=== PATIENT | female | born 1950 | race Caucasian/White ===

== ENCOUNTER → 2017-08-27 | Outpatient (CLI) | payer OTHER, MEDICARE | LOC: FIMAGING 11:03 → EDSTATUS 11:06 | PROVIDERS: ATTEND Internal Medicine Pulmonary Disease | DX: R06.00 Dyspnea, unspecified (principal) ==

== ENCOUNTER 2017-11-08 17:48 | Inpatient (IN) | payer OTHER, MEDICARE ==
--- NOTE | 2017-11-08 18:22 | EDPHY ---
H & P Time Seen by Provider: 11/08/17 18:11 HPI/ROS: Chief complaint. Headache HPI. Patient is a 67-year-old female presents emergency department with results of an abnormal MRI done today. The patient has had about 3 months of intermittent headaches, off balance, visual changes that have been intermittent. She has had some falls from being off balance. She apparently had a TBI many years ago and has frequently had problems with being off balance but this has been progressively much worse. She had an outpatient MRI today at [facility] which shows a large cerebellar mass predominantly cystic. There is significant effect upon the 4th ventricle but no hydrocephalus. Significant edema within the cerebellum. She has no chest pain, shortness of breath, abdominal pain, no fever. ROS Constitutional. no fever/chills, no weakness Eyes. Intermittent problems with vision ENT. no sore throat, no nasal drainage Cardiovascular. no chest pain Respiratory. no shortness of breath, no cough Abdominal. no abdominal pain, no nausea/vomiting, no diarrhea . no problems urinating MS. no calf pain/swelling, no neck/back pain, no joint pain Skin. no rash Lymph. no swollen glands Neuro. Headache and off balance with difficulty walking and falls Past Medical/Surgical History: TBI, RA Social History: , nonsmoker, no alcohol Smoking Status: Never smoked Physical Exam: General Appearance: Alert pleasant well-developed female mild distress vital signs significant for initial blood pressure 167/144 Eyes: Appears to have papilledema. No restriction of gaze ENT, Mouth: Mucous membranes are moist. Respiratory: There are no retractions, lungs are clear to auscultation. Cardiovascular: Regular rate and rhythm. Gastrointestinal: Abdomen is soft and nontender, no masses, bowel sounds normal. Neurological: Awake and alert, sensory exams grossly normal. Speech is normal. Cranial nerves are intact. There is pronator drift with the right hand. She has abnormal bwdise-pl-[id number] with both index fingers and appears right is somewhat worse than left. She also has abnormal popl-py-[id number] exam with again right maybe being somewhat worse than left Skin: Warm and dry, no rashes. Musculoskeletal: Neck is supple nontender. Extremities symmetrical, full range of motion. Psychiatric: Patient is oriented X 3, there is no agitation. Constitutional: Initial Vital Signs Temperature (C) 37 C 11/08/17 17:56 Heart Rate 90 11/08/17 17:56 Respiratory Rate 18 11/08/17 17:56 Blood Pressure 167/144 H 11/08/17 17:56 O2 Sat (%) 96 11/08/17 17:56 O2 Delivery Mode Room Air Allergies/Adverse Reactions: Sulfa (Sulfonamide Antibiotics) Allergy (Unknown, Verified 11/08/17 18:02) Home Medications: Medication Instructions Recorded Breo Ellipta 100-25 Mcg INH 11/08/17 Estradiol [Vivelle-Dot 0.025MG (*)] 0.025 mg TD MoTh@0800 11/08/17 Phospserin/Willis-3/Dha/Epa 1 each PO DAILY 11/08/17 [Vayarin Capsule] Medical Decision Making - Diagnostics EKG Interpretation: EKG IN INTERPRETED BY ME SHOWS NORMAL SINUS RHYTHM NORMAL INTERVAL. THERE IS LEFT AXIS DEVIATION. QRS IS OTHERWISE NORMAL. THERE IS NO SIGNIFICANT ST ELEVATION OR DEPRESSION. NO ARRHYTHMIA. THE RATE IS 79 Imaging Results: Imaging Impressions Chest X-Ray 11/08/17 18:23 Impression: Clear lungs. Negative portable chest. Chest x-ray interpreted by me is normal MRI from health images reviewed by me showing large cerebellar mass, predominantly cystic, but containing thick irregular rhythm like enhancement. This is likely metastatic lesion, but differential considerations would include primary neoplasm including astrocytoma. The mass effect causes significant effect upon the 4th ventricle but there is no hydrocephalus yet. Abundant edema within the cerebellum is noted. Procedures: IV normal saline. Decadron IV. ED Course/Re-evaluation: The patient family and I reviewed the MRI results. We talked about mass in the cerebellar area. We discussed treatment plan including recommendation for admission and evaluation by Neurosurgery. They expressed understanding and agreement I consulted and discussed the case with Dr. Livingston for Neurosurgery who agrees with Decadron IV. He agrees with admission and metastatic workup. He will see the patient in the hospital tonight. He recommends step-down unit. I consulted discussed the case with Dr. Jose, hospitalist, who agrees to the admission We will recheck the patient's blood pressure and treated if it continues to be elevated Recheck in its 179/130. Patient will be treated with IV labetalol 9:00 p.m. blood pressure is 142/90 Differential Diagnosis: Large cerebellar mass that would explain patient's symptoms over the past 3 months. Unknown whether this is a primary or metastatic lesion Critical Care Time: Critical care time exclusive procedures 40 min - Data Points Laboratory Results: Laboratory Results 11/08/17 18:55 11/08/17 18:55 11/08/17 11/08/17 11/08/17 18:55 18:55 18:55 WBC 6.26 10^3/uL 10^3/uL (3.80-9.50) RBC 5.46 10^6/uL H 10^6/uL (4.18-5.33) Hgb 17.5 g/dL H g/dL (12.6-16.3) Hct 49.7 % H % (38.0-47.0) MCV 91.0 fL fL (81.5-99.8) MCH 32.1 pg pg (27.9-34.1) MCHC 35.2 g/dL g/dL (32.4-36.7) RDW 12.7 % % (11.5-15.2) Plt Count 240 10^3/uL 10^3/uL (150-400) MPV 9.7 fL fL (8.7-11.7) Neut % (Auto) 61.1 % % (39.3-74.2) Lymph % (Auto) 28.3 % % (15.0-45.0) [place] % (Auto) 8.8 % % (4.5-13.0) Eos % (Auto) 1.0 % % (0.6-7.6) Baso % (Auto) 0.6 % % (0.3-1.7) Nucleat RBC Rel Count 0.0 % % (0.0-0.2) Absolute Neuts (auto) 3.83 10^3/uL 10^3/uL (1.70-6.50) Absolute Lymphs (auto) 1.77 10^3/uL 10^3/uL (1.00-3.00) Absolute Monos (auto) 0.55 10^3/uL 10^3/uL (0.30-0.80) Absolute Eos (auto) 0.06 10^3/uL 10^3/uL (0.03-0.40) Absolute Basos (auto) 0.04 10^3/uL 10^3/uL (0.02-0.10) Absolute Nucleated RBC 0.00 10^3/uL 10^3/uL (0-0.01) Immature Gran % 0.2 % % (0.0-1.1) Immature Gran # 0.01 10^3/uL 10^3/uL (0.00-0.10) PT 12.8 SEC SEC (12.0-15.0) INR 0.94 (0.83-1.16) APTT 25.7 SEC SEC (23.0-38.0) Sodium 138 mEq/L mEq/L (135-145) Potassium 4.0 mEq/L mEq/L (3.3-5.0) Chloride 102 mEq/L mEq/L (97-110) Carbon Dioxide 23 mEq/l mEq/l (22-31) Anion Gap 13 mEq/L mEq/L (8-16) BUN 22 mg/dL mg/dL (7-23) Creatinine 1.0 mg/dL mg/dL (0.6-1.0) Estimated GFR 56 Glucose 84 mg/dL mg/dL (70-100) Calcium 10.3 mg/dL mg/dL (8.5-10.4) Total Bilirubin 0.6 mg/dL mg/dL (0.1-1.4) Conjugated Bilirubin 0.2 mg/dL mg/dL (0.0-0.5) Unconjugated Bilirubin 0.4 mg/dL mg/dL (0.0-1.1) AST 21 IU/L IU/L (14-46) ALT 25 IU/L IU/L (9-52) Alkaline Phosphatase 39 IU/L IU/L (38-126) Total Protein 7.3 g/dL g/dL (6.3-8.2) Albumin 4.7 g/dL g/dL (3.5-5.0) Lipase 46 IU/L IU/L (23-300) Medications Given: Discontinued Medications Dexamethasone (Decadron Injection) 10 mg IVP EDNOW ONE Stop: 11/08/17 18:25 Last Admin: 11/08/17 18:51 Dose: 10 mg Labetalol HCl (Trandate Injection) 20 mg IVP EDNOW ONE Stop: 11/08/17 19:33 Last Admin: 11/08/17 19:49 Dose: 20 mg Departure - Departure Disposition: [facility] Acute Clinical Impression: Brain tumor Condition: Fair
[2017-11-08] MEDS ORDERED: DEXAMETHASONE 10 MG/ML VIAL IVP ONE (18:24)
[2017-11-08 19:12] LABS: PLATELET COUNT 240 10^3/uL (150-400)
[2017-11-08 19:19] LABS: INR 0.94 (0.83-1.16); PROTIME(PATIENT) 12.8 SEC (12.0-15.0)
[2017-11-08] MEDS ORDERED: LABETALOL HCL 5 MG/ML 20 ML MDV IVP ONE (19:32)
[2017-11-08] MEDS ORDERED: ZOLPIDEM TARTRATE 5 MG TAB PO PRN (19:54)
--- NOTE | 2017-11-08 20:57 | CPEKG ---
Test Reason : OPEN Blood Pressure : / mmHG Vent. Rate : 079 BPM Atrial Rate : 079 BPM P-R Int : 154 ms QRS Dur : 079 ms QT Int : 385 ms P-R-T Axes : 049 -26 031 degrees QTc Int : 442 ms Sinus rhythm Probable left atrial enlargement Borderline left axis deviation Confirmed by Basil Ash ([id number]) on 11/08/2017 8:57:15 PM Referred By: Confirmed By:Basil Ash
--- NOTE | 2017-11-08 21:06 | PDGENHP ---
History and Physical History and Physical: CC: Headaches and imbalance HISTORY: This patient who is generally healthy recently started getting headaches, difficulty with balance, and intermittently some difficulty with vision in her left eye. She went to see a primary care doctor today who ordered an MR I. That showed a brain mass and she is sent to the ER for further assessment and care. Upon arrival here she is having some degree of headache but otherwise feels well. She has had a couple of falls due to her balance issues and has trouble getting up and down stairs. The MRI shows a cystic mass in the cerebellum suggestive of malignancy unclear if this is primary or metastatic disease. There is some edema within the cerebellum. 4th ventricles open. She has no prior history of cancer. She has not had any weight loss in fact has gained a bit of weight. She is not a smoker. She has not had breast exam pelvic exams Pap smear or mammogram for 12 years. She did have a colonoscopy a few years ago that was unrevealing. She has no cough. She was recently diagnosed with asthma and her recent onset of shortness of breath with exertion has resolved with treatment of that including inhalers. She has been doing self breast exams with no noticed lump. No vaginal bleeding. No chest pain abdominal pain skeletal pain skin lesions. No family history of malignancy that she is aware of ROS: A comprehensive 10 system review revealed no other significant findings PREOP RISK ASSESSMENT: No history of heart disease, and no recent symptoms to suggest heart disease Recent onset of asthma has been diagnosed has met by Dr. Fowler of pulmonology, and her symptoms are resolved with albuterol and Breo use, before onset of her imbalance problems from her mass she was [place] difficulty No history of renal or liver disease and no symptoms to suggest either of those No history of bleeding disorder or thromboembolic disorder no family history of same No history of anesthesia complications (general anesthesia for a shoulder surgery) and no family history of same No recent fevers No recent stroke-like symptoms PAST MEDICAL HISTORY: Traumatic brain injury FAMILY MEDICAL HISTORY: No cancers SOCIAL HISTORY: 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 I have reviewed the list and ordered appropriate medicines. PHYSICAL EXAMINATION: Vital Signs: Some hypertension here in the ER which is improving spontaneously , otherwise stable without fever Ux Developer: Sinus Examination: General: alert, oriented, good mentation, relaxed Skin: warm, dry, good color, no rash; no malignancies identified, I did not examine her scalp completely HEENT: normal Neck: no mass or jvd Resps: relaxed Bilateral bimanual breast exams with complete standard breast exam technique including exam for adenopathy in the breast drainage areas is negative Lungs: clear breath sounds Heart: regular, no murmur Abdomen: soft, nondistended, nontender, +BS, no mass Upper Extremities: normal Lower Extremities: no edema, warm No Bleeding or bruising Neurologic: normal speech/language, 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 Ge Acevedo, she has a large cystic mass with enhancing rim features in the anterior cerebellum centrally located and some edema 12 LEAD EKG: ASSESSMENT: * SYMPTOMATIC CEREBELLAR MASS WITH IMBALANCE AND INCOORDINATION, HEADACHES, OCCASIONAL VISUAL SYMPTOMS * NO CURRENT EVIDENCE OF PRIMARY DISEASE IN OTHER PARTS OF THE BODY * CTS OF CHEST ABDOMEN PELVIS PENDING FOR FURTHER EVALUATION * RECENT ONSET OF MILD ASTHMA CURRENTLY EASILY TREATED WITH ALBUTEROL AND BREO, CURRENTLY ASYMPTOMATIC * NO OTHER MEDICAL ISSUES TO PRECLUDE PROCEEDING WITH ANESTHESIA AND SURGERY FOR HER MASS I reviewed the case in detail with Dr. Livingston who plans to do surgery on Saturday. We discussed use of dexamethasone to reduce edema and monitoring with neurologic checks in the ICU. PLANS: * Inpatient admission ICU * Continue her usual inhalers * Dexamethasone 4 mg 4 times daily * Will use Pepcid along with that * Fall risk precautions, PT and OT * Recommend proceeding with surgery per Dr. Livingston's plans
[2017-11-08] MEDS ORDERED: ALBUTEROL 60 PUFFS/8 GM MDI IH PRN (21:10)
[2017-11-08] MEDS ORDERED: IOPAMIDOL (ISOVUE-300) 100 ML BTL ONE (21:41)
--- NOTE | 2017-11-08 21:53 | GCON ---
ER CONSULTATION. DATE OF CONSULTATION: 11/08/2017 REASON FOR CONSULTATION: New right-sided cerebellar tumor with progressive neurological deficits. 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 She states that for the last several months she has been having more and more issues with progressive headaches which were initially intermittent and now have been more constant in nature. She also has issues with waking up in the morning with temporary blindness which resolves over time. She has been noticing more difficulty with her balance including gait disturbance and difficulty with utilization of her right greater than left upper extremity in terms of balance. She underwent an MRI scan as an outpatient and was noted to have a large cerebellar mass for which [facility]. Neurosurgery was consulted. At this point, the patient states that she is feeling slightly better after having received some Decadron. She does have ongoing headaches which radiate from the occiput up and around her cranium. She continues to have issues with gait ataxia and balance issues with again the right greater than left upper extremity. She is dropping objects secondary to inability to hold them properly with the right upper extremity. No history of any carcinomas. No other neurological deficits such as swallowing issues, speech issues, and not choking on food. REVIEW OF SYSTEMS: Complete 10-point review of systems from the intake form are reviewed by myself, significant only for those noted above in the HPI. SOCIAL HISTORY: She is and a nonsmoker. Denies any alcohol use. No other illicit drug use. She has 2 sisters. FAMILY HISTORY: Significant for carcinoma in her mother, but no history of primary brain cancers. ALLERGIES: Sulfa. HOME MEDICATIONS: 1. Albuterol. 2. Breo Ellipta. 3. Estradiol. 4. Progesterone. 5. Testosterone. PAST MEDICAL HISTORY: 1. Traumatic brain injury. 2. Rheumatoid arthritis. 3. Asthma. MEDICAL DECISION MAKING: Patient underwent an MRI of the brain at an outside facility which was reviewed by myself, [facility] was [facility]. There is evidence of a 3.7 x 3.3 mass located eccentric to the right side of the cerebellar hemisphere, possibly arising from the vermis. There is evidence of midline shift and mass effect. There is effacement of the fourth ventricle. Minimal enlargement of the cerebral ventricles with no transependymal flow. The lesion has a well enhanced margin with a cystic component. LABS: White count 6.26, platelets 240, INR is 0.94, PTT 25.7. Sodium 138, potassium 4.0, BUN of 22, creatinine 1.0. PHYSICAL EXAMINATION: Blood pressure is 136/95, respiratory rate 18, saturating 95% on room air. Temperature is 37 degrees Celsius. Heart rate 75. GENERAL APPEARANCE: She is awake, alert, oriented, and quite pleasant with the examination. The patient's , sister, the best friend and niece are at the bedside. She is quite pleasant and cooperative with examination. EYES: Pupils are equal, round, and reactive to light bilaterally. MOTOR: She has 5 out of 5 strength with bilateral safety deposit clerk strength, biceps, triceps, deltoid, hip flexion, knee flexion and extension, plantar and dorsiflexion, and extensor hallucis longus bilaterally. SENSORY: She has intact sensation to light touch throughout all major dermatomes of bilateral upper and lower extremities throughout. REFLEXES: Are 2 plus at the bilateral brachioradialis and patellae. Negative العراقي's. No Babinski. NEUROLOGIC: Cranial nerves 2 through 12 appear to be intact. Pupils are equal, round, and reactive to light bilaterally. Extraocular movements intact. Tongue protrudes midline. Uvula and palate elevate symmetrically. She has symmetric face with intact sensation to light touch on her face bilaterally. Hearing is slightly diminished on the right side to light finger scratching. Her shoulder shrug is symmetric. OTHER : There is no pronator drift. She has difficulty with smlzko-ldty-uujvdh testing bilaterally, worse on the right compared to the left. She is very ataxic with gait which I did not test, but was tested by the ER physician prior to my arrival. She has abnormal delf-ae-glsk examination on the right greater the left. 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 She has evidence of approximately 3.7 x 3.3 cm lesion within the possibly cerebellar vermis versus hemisphere with some effacement of the fourth ventricle. At this point, we are going to admit her to the intensive care unit and complete a metastatic workup with CT of the chest , abdomen, and pelvis. She will likely require surgical intervention for this and I have discussed with her the extent of the risks and benefits of a suboccipital craniectomy with open tumor biopsy and resection. She is willing to proceed. We will admit her to the Hospitalist Service. Give her a 10 mg dose of Decadron, 4 mg q.6 hours for stabilization. We will get Physical Therapy and Occupational Therapy to see the patient as well. All the questions were answered to their satisfaction. Thank you for this consultation. /[id number]/MODL MTDD
[2017-11-08] MEDS: DEXAMETHASONE 4 MG TAB PO SCH (23:56)
[2017-11-09] MEDS: DEXAMETHASONE 4 MG TAB PO SCH ×4 (05:43→23:53)
--- NOTE | 2017-11-09 06:19 | PDMN ---
Medical Necessity Medical necessity: Pt meets IP criteria per MD; est los >2 mn for eval/tx of symptomatic cerebellar mass w/cerebellum edema, headaches, visual changes, imbalance & recent falls; admit to ICU for further workup/monitoring, Neurosurgery consult w/surgical intervention & therapies; hx TBI, recent onset of asthma; per H&P & order 11/08/17
--- NOTE | 2017-11-09 07:27 | SOAPPROG ---
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 tumor improved this morning on steroids Plan: - will obtain Ct C/A/P as part of her metastatic work-up (no history of cancer) - continue with therapies (PT/OT) - continue with steroids Dex 4q6 - scheduled for surgery on Saturday at 1 pm - continue with q1 ICU today as she feels some increased pressure/headaches this morning - all questions answered - appreciate medicine management of her issues 11/09/17 07:24 Subjective: feeling better this morning; anxious for surgery; new pressure on the back of her head Objective: Vital Signs Temp Pulse Resp BP Pulse Ox 36.7 C 61 16 108/77 94 11/08/17 20:45 11/09/17 06:00 11/09/17 06:00 11/09/17 06:00 11/09/17 06:00 11/08/17 11/09/17 11/10/17 05:59 05:59 05:59 Intake Total 1300 Balance 1300 PT 12.8 SEC (12.0-15.0) 11/08/17 18:55 INR 0.94 (0.83-1.16) 11/08/17 18:55 Awake and alert, oriented X 4 Face symmetric No pronator drift Dysmetria right > left - improved Good strength throughout B UE/LE ICD10 Worksheet Patient Problems: Problems Problem Status Onset Brain tumor Acute
[2017-11-09] MEDS: FAMOTIDINE 20 MG TAB PO SCH ×2 (08:43→20:38)
[2017-11-09] MEDS: DHA PO SCH (08:53)
[2017-11-09] MEDS: EPA PO SCH (08:53)
[2017-11-09] MEDS: OMEGA PO SCH (08:53)
[2017-11-09] MEDS: PHOSPSERIN PO SCH (08:53)
[2017-11-09] MEDS: POLYETHYLENE GLYCOL 3350 17 GM PKT PO PRN (09:08)
--- NOTE | 2017-11-09 09:59 | ASMTCASEMG ---
Living Arrangements What is your living Answers: With Partner arrangement? Who do you live with? Type Of Residence What kind of residence do Answers: House you live in? Discharge Plan Comments Coordination Status Comments Notes: Patient is a 67yo female who has been generally healthy but recently developed headaches, balance difficulties, and intermittant vision impairment in her left eye. Patient had an MRI done which showed a brain mass. Patient has been admitted for surgery. 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 D/C plan TBD. CM will follow. Date Signed: 11/09/2017 09:58 AM Electronically Signed By:Kaylah Nicole LCSW
--- NOTE | 2017-11-09 10:05 | GCON ---
REASON FOR ADMISSION: Ataxia, dizziness, asthma. Ms. Dalal is an extremely pleasant 67-year-old white female with a past medical history including asth ma and traumatic brain injury. She presented to the emergency room after an abnormal MRI was found. Over the last 3 months she has noticed increasing headaches. She was in [place] and began having fal ls as well as significant loss of balance and dizziness. She was admitted, placed into the intensive care unit, and placed on steroids. She feels markedly improved today. From an asthma standpoint, s he has remained stable. She is on Breo as an outpatient and doing well. She denies any cough or pro ductive sputum. There is no chest pain, pleuritic-type chest pain, or angina equivalent. There is n o fever or night sweats. REVIEW OF SYSTEMS: 10-point review of systems was performed and is negative with the exception as li sted in HPI. PAST MEDICAL HISTORY: Again, significant for traumatic brain injury, possible rheumatoid arthritis, and asthma. SOCIAL HISTORY: Lifelong never smoker. No significant alcohol use. She is , has excellent [employer] support. FAMILY HISTORY: Noncontributory. PHYSICAL EXAM: VITAL SIGNS: Blood pressure 108/77, pulse is 61, respirations 16. She is afebrile. Oxygen saturation 94% on room air. GENERAL: She is a well-developed, well-nourished 67-year-old ite female who is resting comfortably, in no acute distress. HEENT: Eyes are DOMINIC, EOMI. Throat sh ows no erythema or tonsillar hypertrophy. NECK: Supple. No cervical adenopathy. HEART: Regular r ate and rhythm without murmurs, rubs, gallops. LUNGS: Show mild prolongation expiratory phase, but there is no wheeze. ABDOMEN: Soft, nontender. Bowel sounds are present in all 4 quadrants. EXTREM ITIES: No clubbing, cyanosis, or edema. LABORATORIES: White count 6.2, hemoglobin 17, hematocrit 49, platelet count is 240. Sodium 138, pot assium 4.0, chloride 102, CO2 23, BUN 22, creatinine 1, glucose is 84. MRI revealed a large right me kaitlynn paramedial cerebellar mass. IMPRESSION: 1. Large cerebellar mass. 2. Ataxia secondary to above. 3. Asthma, currently controlled. 4. History of traumatic brain injury. RECOMMENDATIONS: 1. Agree with steroids consisting of dexamethasone. 2. Frequent nebulizers using both albuterol and Atrovent. 3. We will start patient on Advair. 4. DVT and PE prophylaxis. 5. Stress ulcer prophylaxis. 6. Close neurologic monitoring. /[id number]/MODL
--- NOTE | 2017-11-09 10:12 | HOSPPROG ---
Hospitalist Progress Note Assessment/Plan: # cerebellar mass - plan surgical resection Saturday at 1p by Dr Livingston - cont decadron 4mg po q6 - check CT C/A/P to look for a primary - Dr Montejo to consult today - cont ICU care today Subjective: feels better after getting decadron Objective: Vital Signs Temp Pulse Resp BP Pulse Ox 37.0 C 75 16 161/96 H 94 11/09/17 08:00 11/09/17 09:00 11/09/17 09:00 11/09/17 09:00 11/09/17 09:00 11/08/17 11/09/17 11/10/17 05:59 05:59 05:59 Intake Total 1300 Balance 1300 PT 12.8 SEC (12.0-15.0) 11/08/17 18:55 INR 0.94 (0.83-1.16) 11/08/17 18:55 chart reviewed discussed with Dr Montejo and Miki MRI personally reviewed - Physical Exam Constitutional: no apparent distress, appears nourished Cardiovascular: regular rate and rhythym, no murmur, rub, or gallop Respiratory: no respiratory distress, no rales or rhonchi, clear to auscultation Gastrointestinal: soft, non-tender abdomen, no palpable masses, No guarding, No rebound ICD10 Worksheet Patient Problems: Problems Problem Status Onset Brain tumor Acute
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
[2017-11-09] MEDS: FLUTICASONE/SALMETER 250/50MCG DISKUS IH SCH (22:13)
[2017-11-10] MEDS: ACETAMINOPHEN 325 MG TAB PO PRN ×2 (05:39→13:54)
[2017-11-10] MEDS: DEXAMETHASONE 4 MG TAB PO SCH ×4 (05:39→23:59)
--- NOTE | 2017-11-10 07:41 | SOAPPROG ---
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 - continue with therapies (PT/OT) as she continues to have issues with her balance and coordination - continue with steroids Dex 4q6 - scheduled for surgery on Saturday at 1 pm - continue with q2 hour Neuro checks and transfer (order placed) to SDU today as she feels stable TBI headache this morning only - all questions answered - appreciate medicine management of her issues and Oncology input 11/10/17 07:38 11/10/17 07:40 Subjective: stable TBI headaches; no new complaints; spent time with family yesterday Objective: Vital Signs Temp Pulse Resp BP Pulse Ox 36.9 C 57 L 16 109/70 98 11/10/17 04:00 11/10/17 05:56 11/10/17 05:56 11/10/17 05:56 11/10/17 05:56 11/09/17 11/10/17 11/11/17 05:59 05:59 05:59 Intake Total 1300 1200 Balance 1300 1200 PT 12.8 SEC (12.0-15.0) 11/08/17 18:55 INR 0.94 (0.83-1.16) 11/08/17 18:55 Awake and alert, oriented X 4 Face symmetric No pronator drift Dysmetria right > left - improved from admission Good strength throughout B UE/LE ICD10 Worksheet Patient Problems: Problems Problem Status Onset Brain tumor Acute
[2017-11-10] MEDS: FLUTICASONE/SALMETER 250/50MCG DISKUS IH SCH ×2 (08:58→21:16)
[2017-11-10] MEDS: BREO ELLIPTA IH SCH (08:59)
--- NOTE | 2017-11-10 09:22 | PDINTPN ---
Wine Sales Representative Progress Note Assessment/Plan: Assessment/plan: * Cerebellar mass-to OR for resection on Saturday * Ataxia * Asthma-well controlled -continue Advair * Very subtle ground-glass opacification on CT scan-query significance -follow with chest x-ray tomorrow * History of TBI * PT/OT * VT prophylaxis * Stress ulcer prophylaxis Subjective: Sitting up in chair. Resting comfortably. Breathing easily. Denies any headache. Objective: Vital Signs Temp Pulse Resp BP Pulse Ox 36.9 C 57 L 16 109/70 98 11/10/17 04:00 11/10/17 05:56 11/10/17 05:56 11/10/17 05:56 11/10/17 05:56 11/09/17 11/10/17 11/11/17 05:59 05:59 05:59 Intake Total 1300 1200 Balance 1300 1200 PT 12.8 SEC (12.0-15.0) 11/08/17 18:55 INR 0.94 (0.83-1.16) 11/08/17 18:55 - Time Spent With Patient Time Spent With Patient: 35 min of time spent with patient, over 1/2 involved with coordination of care or counseling. Physical Exam - Physical Exam General Appearance: alert, no apparent distress EENT: PERRL/EOMI Neck: non-tender, full range of motion, supple, normal inspection Respiratory: chest non-tender, lungs clear, normal breath sounds, prolonged expiration (Mild) Cardiac/Chest: normal peripheral pulses, regular rate, rhythm Peripheral Pulses: 2+: carotid (R), carotid (L), femoral (R), femoral (L), dorsalis-pedis (R), dorsalis-pedis (L) Abdomen: normal bowel sounds, non-tender, soft Pelvic Exam: deferred Rectal: deferred Skin: normal color, warm/dry Extremities: normal range of motion, non-tender, normal inspection, normal capillary refill Neuro/Psych: no motor/sensory deficits, alert, normal mood/affect, oriented x 3 ICD10 Worksheet Patient Problems: Problems Problem Status Onset Brain tumor Acute
[2017-11-10] MEDS: FAMOTIDINE 20 MG TAB PO SCH ×2 (09:24→21:16)
[2017-11-10] MEDS: POLYETHYLENE GLYCOL 3350 17 GM PKT PO PRN (09:24)
[2017-11-10] MEDS: DHA PO SCH (09:25)
[2017-11-10] MEDS: OMEGA PO SCH (09:25)
[2017-11-10] MEDS: PHOSPSERIN PO SCH (09:25)
[2017-11-10] MEDS: EPA PO SCH (09:25)
--- NOTE | 2017-11-10 14:13 | SOAPPROG ---
SOAP Progress Note Assessment/Plan: E&M for brain mass * Cerebellar mass: The CT scan does not show any obvious evidence of a primary. She has a right renal cyst that looks benign and some uterine fibroids. Also reviewed the MRI with radiology and it is not classic presentation for a GBM. The next step is to biopsy or remove the mass and see what we are dealing with. Subjective: Headache today but slept well. No acute complaints. Objective: Vital Signs Temp Pulse Resp BP Pulse Ox 36.8 C 64 18 102/84 H 94 11/10/17 07:00 11/10/17 09:00 11/10/17 09:00 11/10/17 09:00 11/10/17 09:00 11/09/17 11/10/17 11/11/17 05:59 05:59 05:59 Intake Total 1300 1200 Balance 1300 1200 PT 12.8 SEC (12.0-15.0) 11/08/17 18:55 INR 0.94 (0.83-1.16) 11/08/17 18:55 CT Chest With IV Contrast Impression: Subtle groundglass opacity posteriorly in the right upper lobe, which could represent a subtle pneumonitis. Degenerative change thoracic spine. Dictated By: Ramirez Tyler MD CT Scan of the Abdomen and Pelvis (With Contrast) Pelvis: Multiple myometrial masses are seen, exophytic off the uterus. No significant free fluid in the pelvis. No evidence for bladder calculus. No significant pelvic or inguinal lymphadenopathy. Degenerative change is seen in both hips. There appears to be a degenerative cyst in the anterior right acetabulum. Degenerative disk and degenerative joint disease is seen in the lumbar spine. Impression: 1. 4-cm mildly exophytic cyst superior pole of the right kidney. 2. Constipation. 3. Degenerative change in both hips and degenerative change lumbar spine. Dictated By: Ramirez Tyler MD Physical Exam - Physical Exam General Appearance: alert, no apparent distress ICD10 Worksheet Patient Problems: Problems Problem Status Onset Brain tumor Acute
--- NOTE | 2017-11-10 14:22 | HOSPPROG ---
Hospitalist Progress Note Assessment/Plan: # cerebellar mass - likely primary; renal mass appears benign - plan surgical resection Saturday at 1p by Dr Livingston - cont decadron 4mg po q6 - cont ICU care today # GARCIA - will treat with apap preferentially and low dose tramadol today Subjective: has severe GARCIA; ataxia unchanged Objective: Vital Signs Temp Pulse Resp BP Pulse Ox 36.8 C 64 18 102/84 H 94 11/10/17 07:00 11/10/17 09:00 11/10/17 09:00 11/10/17 09:00 11/10/17 09:00 11/09/17 11/10/17 11/11/17 05:59 05:59 05:59 Intake Total 1300 1200 Balance 1300 1200 PT 12.8 SEC (12.0-15.0) 11/08/17 18:55 INR 0.94 (0.83-1.16) 11/08/17 18:[address] personally reviewed - Physical Exam Constitutional: no apparent distress, appears nourished Cardiovascular: regular rate and rhythym, no murmur, rub, or gallop Respiratory: no respiratory distress, no rales or rhonchi, clear to auscultation Gastrointestinal: soft, non-tender abdomen, no palpable masses, No guarding, No rebound, No distension ICD10 Worksheet Patient Problems: Problems Problem Status Onset Brain tumor Acute
[2017-11-10] MEDS: traMADol 50 MG TAB PO PRN (15:28)
[2017-11-11] MEDS: DEXAMETHASONE 4 MG TAB PO SCH ×3 (05:03→17:54)
[2017-11-11 05:12] LABS: PLATELET COUNT 230 10^3/uL (150-400)
--- NOTE | 2017-11-11 08:32 | PDINTPN ---
Product Safety Administrator Progress Note Assessment/Plan: Assessment/plan: * Cerebellar mass-to OR for resection tomorrow * Ataxia * Asthma-well controlled -continue Advair * Very subtle ground-glass opacification on CT scan-query significance -chest x-ray clear * History of TBI * PT/OT * VT prophylaxis * Stress ulcer prophylaxis Subjective: Resting comfortably. Only complaint is a headache. No neurologic changes. Breathing easily. Objective: Vital Signs Temp Pulse Resp BP Pulse Ox 36.9 C 50 L 17 97/63 L 95 11/10/17 20:00 11/11/17 04:00 11/11/17 04:00 11/11/17 04:00 11/11/17 04:00 Laboratory Results 11/11/17 04:55 11/11/17 04:55 11/10/17 11/11/17 11/12/17 05:59 05:59 05:59 Intake Total 1200 700 Balance 1200 700 PT 12.8 SEC (12.0-15.0) 11/08/17 18:55 INR 0.94 (0.83-1.16) 11/08/17 18:55 Chest [id number] by myself. Clear - Time Spent With Patient Time Spent With Patient: 35 min of time spent with patient, over 1/2 involved coordination of care or counseling. Case discussed with Neurosurgery and nursing Physical Exam - Physical Exam General Appearance: WD/WN, alert, no apparent distress EENT: PERRL/EOMI, normal ENT inspection, pharynx normal, TMs normal Neck: non-tender, full range of motion, supple, normal inspection Respiratory: chest non-tender, lungs clear, normal breath sounds Cardiac/Chest: normal peripheral pulses, regular rate, rhythm Peripheral Pulses: 2+: carotid (R), carotid (L), femoral (R), femoral (L), dorsalis-pedis (R), dorsalis-pedis (L) Abdomen: normal bowel sounds, non-tender, soft Pelvic Exam: deferred Rectal: deferred Skin: normal color, warm/dry Extremities: normal range of motion, non-tender, normal inspection, normal capillary refill Neuro/Psych: no motor/sensory deficits, alert, normal mood/affect, oriented x 3 ICD10 Worksheet Patient Problems: Problems Problem Status Onset Brain tumor Acute
[2017-11-11] MEDS: FAMOTIDINE 20 MG TAB PO SCH ×2 (08:46→22:02)
[2017-11-11] MEDS: POLYETHYLENE GLYCOL 3350 17 GM PKT PO PRN (08:46)
[2017-11-11] MEDS: OMEGA PO SCH (08:47)
[2017-11-11] MEDS: EPA PO SCH (08:47)
[2017-11-11] MEDS: DHA PO SCH (08:47)
[2017-11-11] MEDS: PHOSPSERIN PO SCH (08:47)
--- NOTE | 2017-11-11 09:01 | SOAPPROG ---
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 [facility] MRI brain ordered. - continue with q2 hour Neuro checks - all questions answered - appreciate medicine management of her issues and Oncology input - NPO after midnight; T&S, Ryan GAXIOLA, [facility] MRI brain ordered. 11/11/17 08:59 Subjective: no complaints this morning; anxious to get to surgery tomorrow Objective: Vital Signs Temp Pulse Resp BP Pulse Ox 36.9 C 50 L 17 97/63 L 95 11/10/17 20:00 11/11/17 04:00 11/11/17 04:00 11/11/17 04:00 11/11/17 04:00 Laboratory Results 11/11/17 04:55 11/11/17 04:55 11/10/17 11/11/17 11/12/17 05:59 05:59 05:59 Intake Total 1200 700 Balance 1200 700 PT 12.8 SEC (12.0-15.0) 11/08/17 18:55 INR 0.94 (0.83-1.16) 11/08/17 18:55 Awake and alert, oriented X 4 Face symmetric No pronator drift Dysmetria right > left - improved from admission Good strength throughout B UE/LE ICD10 Worksheet Patient Problems: Problems Problem Status Onset Brain tumor Acute
[2017-11-11] MEDS: BREO ELLIPTA IH SCH (09:52)
[2017-11-11] MEDS: ESTRADIOL VIVELLE 0.025 MG PATCH TD SCH (13:33)
--- NOTE | 2017-11-11 14:22 | HOSPPROG ---
Hospitalist Progress Note Assessment/Plan: # cerebellar mass - likely primary; renal mass appears benign - plan surgical resection Saturday at 1p by Dr Livingston - cont decadron 4mg po q6 - cont ICU care today # GARCIA - much improved after one dose of tramadol - discussed with Dr Livingston - will sign off after surgery tomorrow and Dr Livingston will take over as primary post-op Subjective: atacia better; GARCIA better after tramadol Objective: Vital Signs Temp Pulse Resp BP Pulse Ox 36.9 C 62 21 H 97/63 L 97 11/10/17 20:00 11/11/17 09:57 11/11/17 09:57 11/11/17 04:00 11/11/17 09:57 Laboratory Results 11/11/17 04:55 11/11/17 04:55 11/10/17 11/11/17 11/12/17 05:59 05:59 05:59 Intake Total 1200 700 Balance 1200 700 PT 12.8 SEC (12.0-15.0) 11/08/17 18:55 INR 0.94 (0.83-1.16) 11/08/17 18:55 - Physical Exam Constitutional: no apparent distress, appears nourished Eyes: anicteric sclera Ears, Nose, Mouth, Throat: hearing normal Cardiovascular: No edema Respiratory: no respiratory distress Gastrointestinal: No distension Genitourinary: No thayer in urethra Skin: warm Neurologic: AAOx3 Psychiatric: not anxious ICD10 Worksheet Patient Problems: Problems Problem Status Onset Brain tumor Acute
[2017-11-11] MEDS ORDERED: MAGNESIUM HYDROXIDE 30 ML UDCUP PO PRN (15:57)
--- NOTE | 2017-11-11 16:22 | ASMTCMCOM ---
CM Note CM Note Notes: CM spoke to DENNIS Omer about this case. CM wrote an airline excuse letter and provided it to pt. Pt will have brain surgery tomorrow. Therapies are recommending inpatient rehab. WADE contacted Dr. Briggs and he will put in the rehab consult. CM to follow up after surgery. Plan: TBD Date Signed: 11/11/2017 04:21 PM Electronically Signed By:CHRIS Szymanski
[2017-11-11] MEDS: traMADol 50 MG TAB PO PRN (22:02)
[2017-11-12] MEDS: DEXAMETHASONE 4 MG/ML VIAL IVP SCH ×5 (00:54→23:22)
[2017-11-12 01:17] LABS: PLATELET COUNT 235 10^3/uL (150-400)
[2017-11-12] MEDS: DEXAMETHASONE 4 MG TAB PO SCH (03:04)
[2017-11-12] MEDS ORDERED: DIAZEPAM 5 MG/ML 1 ML SYR IVP ONE (06:00)
[2017-11-12] MEDS ORDERED: BUPIVACAINE 0.25% 30 ML SDV ONE (09:02)
[2017-11-12] MEDS ORDERED: BACITRACIN ZINC 14.2 GM OINTTUBE TP ONE (09:03)
[2017-11-12] MEDS ORDERED: BACITRACIN 50,000 UNITS/10 ML SYR IRR ONE (09:03)
[2017-11-12] MEDS ORDERED: THROMBIN (BOVINE) 5,000 UNIT VIAL TP ONE (09:04)
[2017-11-12] MEDS ORDERED: CHLORHEXIDINE GLUC HIBICLENS 118 ML BTL TP ONE (09:05)
[2017-11-12] MEDS ORDERED: MANNITOL 20% 100 GM/500 ML BAG IV ONE ×2 (09:06→14:14)
--- NOTE | 2017-11-12 09:06 | PDHPUP ---
History & Physical Update H&P update statement: This history and physical update is based on an assessment of the patient which was completed after admission or registration (within 24 hours), but prior to the surgery/procedure. H&P update: H&P reviewed & patient examined (site marked and consent on chart)
[2017-11-12] MEDS ORDERED: DIAZEPAM 5 MG/ML 1 ML SYR ONE (09:07)
[2017-11-12] MEDS: BREO ELLIPTA IH SCH (09:25)
[2017-11-12] MEDS ORDERED: GADOBUTROL 10 ML VIAL IVP ONE (09:42)
[2017-11-12] MEDS: FAMOTIDINE 20 MG TAB PO SCH (10:07)
[2017-11-12] MEDS: EPA PO SCH (10:07)
[2017-11-12] MEDS: OMEGA PO SCH (10:07)
[2017-11-12] MEDS: PHOSPSERIN PO SCH (10:07)
[2017-11-12] MEDS: DHA PO SCH (10:07)
[2017-11-12] MEDS ORDERED: ceFAZolin 2 GM/DEXTROSE 100 ML IV ONE (11:30)
[2017-11-12] MEDS ORDERED: LR 1,000 ML IV ONE (13:00)
[2017-11-12] MEDS ORDERED: THROMBIN (BOVINE) 20,000 UNIT VIAL TP ONE (13:03)
[2017-11-12] MEDS ORDERED: THROMBIN (BOVINE) 20,000 UNIT SPRAY TP ONE (13:03)
[2017-11-12] MEDS ORDERED: GENTAMICIN SULFATE 80 MG/2 ML VIAL ONE (13:08)
[2017-11-12] MEDS ORDERED: SURGIFLO MATRIX KIT WITH THROMBIN 8 ML TP ONE (13:08)
[2017-11-12] MEDS ORDERED: EPINEPHrine 1 MG/ML INJ ONE (13:11)
[2017-11-12] MEDS ORDERED: PROPOFOL/EMULSION 500 MG/50 ML BOTTLE IV ONE ×4 (13:26→18:50)
[2017-11-12] MEDS ORDERED: REMIFENTANIL HCL 1 MG VIAL ONE ×5 (13:28→19:22)
[2017-11-12] MEDS ORDERED: SUCCINYLCHOLINE CHLORIDE 200 MG/10 ML SYR IVP ONE (13:38)
[2017-11-12] MEDS ORDERED: ePHEDrine SULFATE 25 MG/5 ML SYR ONE ×3 (13:53→16:52)
[2017-11-12] MEDS ORDERED: DEXAMETHASONE 4 MG/ML VIAL IVP PRN (14:48)
[2017-11-12] MEDS ORDERED: ONDANSETRON 4 MG/2 ML VIAL IVP PRN (14:48)
[2017-11-12] MEDS ORDERED: ALBUTEROL 3 ML DEYVIAL IH PRN (14:48)
[2017-11-12] MEDS ORDERED: fentaNYL 100 MCG/2 ML INJ IVP PRN (14:48)
[2017-11-12] MEDS ORDERED: NALOXONE HCL 0.4 MG/ML INJ IVP PRN (14:48)
--- NOTE | 2017-11-12 14:51 | PDANEPAE ---
ANE History of Present Illness Posterior Fossa Craniotomy for Tumor Resection ANE Past Medical History - Cardiovascular History Hx Hypertension: Yes - Pulmonary History Hx Oxygen in Use at Home: No Hx Sleep Apnea: No Sleep Apnea Screening Result - Last Documented: Negative - Endocrine History Hx Diabetes: No ANE Review of Systems Review of Systems: - Exercise capacity Exercise capacity: >=4 METS ANE Patient History - Allergies Allergies/Adverse Reactions: Sulfa (Sulfonamide Antibiotics) Allergy (Unknown, Verified 11/08/17 18:02) - Home Medications Home Medications: Breo Ellipta 100-25 Mcg INH 1 puffs IH DAILY 11/08/17 [Last Taken Unknown] Estradiol [Vivelle-Dot 0.025MG (*)] 0.025 mg TD MoTh@0800 11/08/17 [Last Taken 11/07/17] Phospserin/[place]-3/Dha/Epa [Vayarin Capsule] 1 each PO DAILY 11/08/17 [Last Taken 11/07/17] Meloxicam 15 mg PO DAILY 11/10/17 [Last Taken Unknown] - NPO status NPO Since - Liquids (Date): 11/12/17 NPO Since - Liquids (Time): 00:00 NPO Since - Solids (Date): 11/12/17 NPO Since - Solids (Time): 00:00 - Smoking Hx Smoking Status: Never smoked ANE Labs/Vital Signs - Labs Result Diagrams: 11/12/17 01:05 11/12/17 01:05 - Vital Signs Blood Pressure: 115/77 Heart Rate: 55 Respiratory Rate: 12 O2 Sat (%): 92 Height: 157.48 cm Weight: 65 kg ANE Physical Exam - Airway Neck exam: FROM Mallampati Score: Class 2 - Pulmonary Pulmonary: clear to auscultation - Cardiovascular Cardiovascular: regular rate and rhythym - ASA Status ASA Status: II ANE Anesthesia Plan Anesthesia Plan: general endotracheal anesthesia Lines/Monitors: arterial line, additional IV Total IV Anesthesia: Yes
[2017-11-12] MEDS ORDERED: ceFAZolin 1 GM VIAL ONE ×2 (17:18→19:58)
[2017-11-12] MEDS ORDERED: LACTULOSE 20 GM/30 ML UDCUP PO PRN (17:43)
[2017-11-12] MEDS ORDERED: MAGNESIUM HYDROXIDE 30 ML UDCUP PO PRN (17:43)
[2017-11-12] MEDS ORDERED: ONDANSETRON DISINTEGRATING 4 MG TAB PO PRN (17:43)
[2017-11-12] MEDS ORDERED: DIAZEPAM 5 MG TAB PO PRN (17:43)
[2017-11-12] MEDS ORDERED: NS W/ 20 KCl/L 1,000 ML IV SCH (17:45)
[2017-11-12] MEDS ORDERED: DEXAMETHASONE 4 MG/ML VIAL ONE ×2 (19:53)
[2017-11-12] MEDS ORDERED: ONDANSETRON 4 MG/2 ML VIAL ONE (19:53)
--- NOTE | 2017-11-12 20:45 | GOP ---
DATE OF OPERATION: 11/12/2017 SURGEON: Marcin Quinones MD NEUROSURGEON: Marcin Quinones MD. POLITICAL ADVISOR: Load Out Person: Jonatan Livingston MD. Second Assist: MARCO Borrego. ANESTHESIA: General endotracheal. PREOPERATIVE DIAGNOSIS: Right vermian mass. POSTOPERATIVE DIAGNOSIS: Right vermian mass. PROCEDURE PERFORMED: 1. Right extreme lateral supracerebellar infratentorial approach to right vermian mass. 2. Microsurgical gross total resection of cerebellar mass. 3. Use of the operative microscope. 4. Stealth stereotactic neuronavigation for volumetric gross total resection of cerebellar tumor. 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 SPECIMENS: Specimen was vermian mass for permanent and frozen pathology. ESTIMATED BLOOD LOSS: Blood loss was 200. DESCRIPTION OF PROCEDURE: After informed consent was obtained from the patient , the patient was brought to the operating room and a formal time-out was performed, identifying the patient by name, medical record number and date of . Preoperative antibiotics were given. The endotracheal tube was placed and general endotracheal anesthesia was smoothly induced. 0.50 g/kg of mannitol was given, and Tsai pins were placed. The patient was turned to the prone position with the head flexed and turned slightly toward the right side. The Stealth was then registered to the scalp and checked for accuracy using known surface landmarks. This was then used to identify the midline at the torcula and the transverse sinus on the right side. An upside-down U- shaped incision was then marked starting from the midline and extending across the transverse sinus toward the right mastoid. A small amount of hair was clipped and 10 mL of 0.25% Marcaine with epinephrine was infiltrated in the skin for hemostasis. The head was then prepped and draped in the normal sterile fashion. The skin incision was made using a 10 blade and the subcutaneous tissues were dissected using monopolar electrocautery. Larry clips were placed for hemostasis. The avascular plane in the midline was opened down toward the suboccipital bone and the entirety of the bone was exposed. At this point, the transverse sinus was localized using the Stealth and 4 jarrod holes were placed medial and lateral on either side of the transverse sinus. The dura was then stripped from beneath and the craniotome was used to turn a roughly 3 x 4 cm rectangular craniotomy flap, spanning the transverse sinus on the right side. All bleeding was controlled using bipolar electrocautery and Gelfoam. The dura was then opened in a curvilinear fashion just beneath the transverse sinus and flapped cephalad, retracting the sinus superiorly. The operative microscope was then brought into the field and the remainder of procedure was performed under high-powered magnification. First, the dense adhesions between the transverse sinus and the superior cerebellum were divided. This allowed us to get into the supracerebellar infratentorial corridor and we coursed over the top of the cerebellum to the area of the tumor. This was confirmed using the Stealth and a small corticectomy in the cerebellum was then made. A careful sub peel dissection was then carried down to the interface of the tumor, which was visualized and was appiah red, consistent with hemangioblastoma. We then carefully dissected around the tumor capsule in this area, exposing a number of large tumor arteries and veins. Ultimately, a small piece was taken and the tumor was extremely vascular. This was sent for frozen section which returned consistent with hemangioblastoma. We then continued the dissection around the tumor capsule in a circumferential fashion. The posterior and superior aspects were relatively free of larger vessels, but as we coursed more anteriorly toward the quadrigeminal cistern, a number of large arterialized veins were visualized, as well as a few feeding arteries. Care was taken to carefully coagulate and divide these feeding arteries. The large arterialized veins were also coagulated and the veins then coursing toward the cerebellum became purple once they were disconnected from the tumor. It was extremely vascular in this area and quite difficult to dissect because of vascular nature of the tumor and its bulk. We then began to debulking internally the tumor, but this resulted in copious bleeding. We were able to control this and then the inferior portion of the tumor was completely removed. As we moved around the lateral portion of the superior aspect of the tumor, a few large arteries running along the tectum were visualized and carefully dissected. The 4th nerve on the right side was also visualized and protected. Careful arachnoid dissection was then carried out, dividing a few arterial feeders and veins coursing from the brainstem into the tumor. We continued in this fashion until the tumor was completely disconnected from this area. All the veins and arteries of the brainstem appeared to be intact and the bleeding stopped at this point. The cavity was then copiously irrigated using gentamicin irrigation and the cavity was inspected for any areas of residual tumor. When none was seen, the cavity was covered with Surgicel and the wound was again copiously irrigated using gentamicin irrigation. The dura was then closed in a watertight fashion using interrupted 4-0 Nurolon and this was covered with an onlay DuraGen graft. The craniotomy flap was then plated back in place using Synthes titanium plates and screws. Again, the wound was copiously irrigated using bacitracin irrigation. The galea was closed using interrupted 2-0 Vicryl and the skin was closed using a running locking 3-0 Prolene. The sterile dressings were then placed. The patient was turned in the supine position, where she was extubated and was transferred to the PACU in stable condition. There were no operative complications. I was scrubbed and present for the entire procedure. All sponge and needle counts were correct at the end of the case. BRIEF CLINICAL HISTORY: The patient is a 67-year-old woman who presented with headaches. CT and subsequent MRI revealed a large mass in the superior vermis near the quadrigeminal cistern. MRI then revealed this to be contrast- enhancing cystic mass consistent with possible hemangioblastoma versus metastatic disease. The patient had mild hydrocephalus, but was stable for several days in the hospital and was brought for elective resection today. FLUIDS: Fluids and urine output per the anesthesia record. DRAINS: There were no drains. /[id number]/MODL MTDD
[2017-11-12] MEDS: SENNOSIDES/DOCUSATE SODIUM TAB PO SCH (20:59)
[2017-11-12] MEDS: FAMOTIDINE 20 MG/NACL 50 ML IV SCH (21:00)
[2017-11-12] MEDS: HYDROmorphONE/DILAUDID 1 MG/ML INJ IVP PRN ×2 (21:00→22:33)
[2017-11-12] MEDS: ONDANSETRON 4 MG/2 ML VIAL IVP PRN (21:46)
[2017-11-12] MEDS: DIAZEPAM 5 MG/ML 1 ML SYR IVP PRN (21:46)
[2017-11-12] MEDS: PROMETHAZINE HCL 25 MG/ML INJ IVP PRN (23:32)
--- NOTE | 2017-11-12 23:33 | PDCONSULT ---
Stitch Marker Note: NEUROSURGERY Patient was seen and evaluated immediately post-op by Dr. Livingston and myself. lethargic but opens eyes to voice, unintelligable speech. PERRL face symmetric GABRIEL with good strength dressing C/d/i POD#0 s/p resection of vermian hemangioblastoma - decadron 4q6 - pain control, zofran for nausea - PT/OT - MRI tomorrow - called the nurse just now to check in and she is awake and talking, following all commands with good strength. Stacie
[2017-11-13] MEDS: ONDANSETRON 4 MG/2 ML VIAL IVP PRN (02:09)
[2017-11-13] MEDS: niCARdipine/NACL 200 ML IV SCH ×5 (03:37→20:37)
[2017-11-13] MEDS: PROMETHAZINE HCL 25 MG/ML INJ IVP PRN (05:19)
[2017-11-13 05:25] LABS: PLATELET COUNT 136 10^3/uL (150-400)
[2017-11-13] MEDS: DEXAMETHASONE 4 MG/ML VIAL IVP SCH ×3 (06:26→18:29)
[2017-11-13] MEDS: OMEGA PO SCH (07:37)
[2017-11-13] MEDS: PHOSPSERIN PO SCH (07:37)
[2017-11-13] MEDS: SENNOSIDES/DOCUSATE SODIUM TAB PO SCH (07:37)
[2017-11-13] MEDS: DHA PO SCH (07:37)
[2017-11-13] MEDS: EPA PO SCH (07:37)
[2017-11-13] MEDS: FAMOTIDINE 20 MG/NACL 50 ML IV SCH ×2 (07:43→20:36)
--- NOTE | 2017-11-13 07:48 | NEUSURGPN ---
Assessment/Plan: A/P: 67 yo female POD#1 s/p resection of vermian hemangioblastoma -Neuro: Somnolent this morning after valium and phenergan. Was up most of the night vomiting - decadron 4q6 -Postop MRI this morning - pain control -Nausea- added scopolamine patch and valium - PT/OT/PLASTIC MANAGER -Ok for q2 hour neuro checks -DC A-line - Seen by and myself this morning S: Somnolent. Per RN was up most of the night vomiting and complaining of head pain. O: Somnolent but following commands PERRL, EOMI Face symmetrical GABRIEL X4 with good strength Incision c/d/i - Physician Discussed Patient with : Stacie Patient Seen by : Stacie Neurosurgery Physical Exam - Vitals, I&O, Labs I and O 11/12/17 11/13/17 11/14/17 05:59 05:59 05:59 Intake Total 1200 1250 Output Total 2000 Balance 1200 -750 Weight 65 kg Intake: Oral (ml) 1200 0 IV Infused (ml) 1250 NS W/ 20 KCl/L 1,000 ml @ 930 100 mls/hr IV CONT JULES Rx#:[id number] niCARdipine/NACL 200 ml @ 320 Titrate IV CONT JULES Rx#: [id number] Output: Urine (ml) 2000 Toilet 2000 Other: Number of Voids Toilet 2 3 Number of Stools Toilet 1 Vital Signs Temp Pulse Resp BP Pulse Ox 36.9 C 68 19 106/59 L 99 11/12/17 22:00 11/13/17 06:00 11/13/17 06:00 11/13/17 06:00 11/13/17 06:00 Laboratory Results 11/13/17 04:35 11/13/17 04:35 ICD10 Worksheet Patient Problems: Problems Problem Status Onset Brain tumor Acute
[2017-11-13] MEDS ORDERED: SCOPOLAMINE HYDROBROMIDE 1 MG/3 DAYS PATCH TD SCH (08:00)
[2017-11-13] MEDS: BREO ELLIPTA IH SCH (09:29)
--- NOTE | 2017-11-13 11:16 | PDINTPN ---
Auto Hiker Progress Note Assessment/Plan: 67 F with well controlled asthma presented with ataxia and found to have cerebellar mass. She underwent craniotomy and resection 11/12 without complications, though pathology is pending at this time. 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 A 4 mm exophytic renal cystic lesion was also noted on an abdominal CT. * Cerebellar mass- path pending. Significant nausea overnight managed with dex, phenergen, zofran, scopalamine. * asthma - currently stable. * Renal cyst- unclear if related to cerebellar mass, though ayw-Aiwgrw-Ohafyg associated with both renal cysts and renal cell carcinoma. Await path Subjective: somnolent after receiving phenergen for persistent nausea Objective: Vital Signs Temp Pulse Resp BP Pulse Ox 36.9 C 63 16 112/69 100 11/12/17 22:00 11/13/17 09:00 11/13/17 08:00 11/13/17 09:00 11/13/17 08:00 Laboratory Results 11/13/17 04:35 11/13/17 04:35 11/12/17 11/13/17 11/14/17 05:59 05:59 05:59 Intake Total 1200 1250 Output Total 2000 Balance 1200 -750 PT 12.8 SEC (12.0-15.0) 11/08/17 18:55 INR 0.94 (0.83-1.16) 11/08/17 18:55 Physical Exam - Physical Exam General Appearance: obtunded, thin EENT: PERRL/EOMI Neck: supple Respiratory: lungs clear, normal breath sounds, No respiratory distress, No accessory muscle use Cardiac/Chest: regular rate, rhythm, No edema Abdomen: non-tender, soft, No distended Skin: normal color, warm/dry, No cyanosis Lymphatic: no adenopathy Extremities: No pedal edema Neuro/Psych: No abnormal stone repairer II-XII ICD10 Worksheet Patient Problems: Problems Problem Status Onset Brain tumor Acute
[2017-11-13] MEDS: DIAZEPAM 5 MG/ML 1 ML SYR IVP PRN (11:45)
[2017-11-13] MEDS ORDERED: GADOBUTROL 10 ML VIAL IVP ONE (11:54)
[2017-11-13] MEDS ORDERED: NS W/ 20 KCl/L 1,000 ML IV SCH (19:00)
[2017-11-14] MEDS: SENNOSIDES/DOCUSATE SODIUM TAB PO SCH ×3 (00:13→21:05)
[2017-11-14] MEDS: DEXAMETHASONE 4 MG/ML VIAL IVP SCH ×4 (00:16→17:46)
[2017-11-14] MEDS ORDERED: MANNITOL 20% 250 ML IV ONE ×3 (01:00→02:00)
[2017-11-14] MEDS ORDERED: MANNITOL IV ONE (01:15)
[2017-11-14] MEDS ORDERED: SODIUM CL IV ONE (02:45)
[2017-11-14] MEDS ORDERED: NS IV ONE (02:45)
[2017-11-14] MEDS ORDERED: NS 1,000 ML IV SCH (03:00)
[2017-11-14 06:45] LABS: PLATELET COUNT 149 10^3/uL (150-400)
[2017-11-14] MEDS ORDERED: ALTEPLASE 2 MG VIAL IVP PRN (07:23)
--- NOTE | 2017-11-14 08:27 | NEUSURGPN ---
Assessment/Plan: A/P: 67 yo female POD#2 s/p resection of vermian hemangioblastoma -Neuro: Somnolent this morning. Overnight stat HCT overall stable. Mannitol given. Goal Na is 140-145. Recheck Na this am is 134. Will get PICC and begin 3 % NS. DC scopolamine patch. 1.8% Na running at 60ml/hr in the meantime. - decadron 4q6 -Postop MRI shows tumor resection, slight hydrocephalus - pain control -Nausea- monitor - PT/OT/COMMUNITY MARKETING MANAGER -Q1 hour neuro checks -D/w Dr Quinones and Dr. Livingston. Dr. Quinones to see later this am. Subjective: Pt resting in bed, somnolent Objective: Pt sleeping in bed, snoring VSS Pupils equal and reactive Not following commands Urinary Catheter in Place: Yes Urinary Catheter Indication: Surgical Requirement - Physician Discussed Patient with : Miki Neurosurgery Physical Exam - Vitals, I&O, Labs I and O 11/13/17 11/14/17 11/15/17 05:59 05:59 05:59 Intake Total 1250 3298 Output Total 1999 3649 Balance -750 -352 Weight 65 kg 65.74 kg Intake: Oral (ml) 0 0 IV Infused (ml) 1250 3298 Mannitol 20% 250 ml @ As 250 Directed 250 mls/hr IV ONCE ONE Rx#:[id number] NS W/ 20 KCl/L 1,000 ml @ 930 2026 100 mls/hr IV CONT JULES Rx#:[id number] Ns 1,000 ml @ 55 mls/hr 107 IV CONT JULES Rx#: [id number] Sodium Cl 23.4% 7.7 meq 45 In Ns 50 ml @ 50 mls/hr IV ONCE ONE Rx#: [id number] niCARdipine/NACL 200 ml @ 320 870 Titrate IV CONT JULES Rx#: [id number] Output: Urine (ml) 1999 3649 Catheter 365 Toilet 1999 Other: Number of Voids Toilet 3 Number of Stools Catheter 0 Vital Signs Temp Pulse Resp BP Pulse Ox 36.9 C 58 L 21 H 120/72 95 11/14/17 03:26 11/14/17 07:00 11/14/17 07:00 11/14/17 07:00 11/14/17 07:00 Laboratory Results 11/14/17 06:35 11/14/17 06:35 ICD10 Worksheet Patient Problems: Problems Problem Status Onset Brain tumor Acute
[2017-11-14] MEDS ORDERED: SODIUM CL 23.4% 308 MEQ in WATER FOR INJECTION,STERILE 1,000 ML IV SCH (09:00)
[2017-11-14] MEDS: ESTRADIOL VIVELLE 0.025 MG PATCH TD SCH (09:51)
[2017-11-14] MEDS: BREO ELLIPTA IH SCH (09:51)
[2017-11-14] MEDS: EPA PO SCH (09:52)
[2017-11-14] MEDS: niCARdipine/NACL 200 ML IV SCH (09:52)
[2017-11-14] MEDS: DHA PO SCH (09:52)
[2017-11-14] MEDS: FAMOTIDINE 20 MG/NACL 50 ML IV SCH ×2 (09:52→21:05)
[2017-11-14] MEDS: PHOSPSERIN PO SCH (09:52)
[2017-11-14] MEDS: OMEGA PO SCH (09:52)
--- NOTE | 2017-11-14 10:53 | PDINTPN ---
Laboratory Clerk Progress Note Assessment/Plan: 67 F with well controlled asthma presented with ataxia and found to have cerebellar mass. She underwent craniotomy and resection 11/12 without complications, though pathology is pending at this time. 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 A 4 mm exophytic renal cystic lesion was also noted on an abdominal CT. * Cerebellar mass- path pending. Very somnolent this am and overnight. Waxing and waning pupillary responses. Stat CT last pm consistent with postop changes. Mannitol given. May need EVD, and expecting NS to return to bedside soon. Remains on dex, 1.8% NS (changing to 3% 04/12 Ty=083), nicardipine currently on hold. Scopolamine dc'd . Currently protecting her airway, but may need NT suctioning. Observe closely. * asthma - currently stable on prn albuterol alone. * Renal cyst- unclear if related to cerebellar mass, though cuo-Ozoljp-Izbbrh associated with both renal cysts and renal cell carcinoma. Dr. Montejo's last note seemed to agree with radiology that the renal cyst was likely benign. * RA- no therapy directed at this at the moment but is on dexamethasone * hx TBI from [facility] 25 yrs ago 11/14/17 10:44 Subjective: minimally responsive this am Objective: Vital Signs Temp Pulse Resp BP Pulse Ox 37.3 C 62 23 H 122/74 H 90 L 11/14/17 08:00 11/14/17 09:00 11/14/17 09:00 11/14/17 09:00 11/14/17 09:00 Laboratory Results 11/14/17 06:35 11/14/17 06:35 11/13/17 11/14/17 11/15/17 05:59 05:59 05:59 Intake Total 1250 3298 Output Total 1999 3650 300 Balance -750 -352 -300 PT 12.8 SEC (12.0-15.0) 11/08/17 18:55 INR 0.94 (0.83-1.16) 11/08/17 18:55 Physical Exam - Physical Exam General Appearance: obtunded, unresponsive EENT: PERRL/EOMI, other (variable pupil exam from fixed/dilated, to normal/ responsive) Neck: supple Respiratory: lungs clear, normal breath sounds, decreased breath sounds, No respiratory distress, No accessory muscle use Cardiac/Chest: regular rate, rhythm, No edema Abdomen: non-tender, soft, No distended Skin: normal color, warm/dry, No cyanosis Lymphatic: no adenopathy Extremities: No pedal edema Neuro/Psych: cognition abnormalities, other (wd to pain x4, though L>R), No alert, No oriented x 3 ICD10 Worksheet Patient Problems: Problems Problem Status Onset Brain tumor Acute
--- NOTE | 2017-11-14 11:21 | ASMTCMCOM ---
CM Note CM Note Notes: Chart reviewed. Patient discussed in rounds. She may need additional neurological interventions . Therapies currently on hold. CM to follow. Plan: TBD Date Signed: 11/14/2017 11:21 AM Electronically Signed By:Hui Diaz RN
[2017-11-14] MEDS ORDERED: LIDOCAINE 1% 300 MG/30 ML SDV ONE (11:47)
[2017-11-14] MEDS ORDERED: ceFAZolin 2 GM/DEXTROSE 100 ML IV ONE (13:45)
[2017-11-14] MEDS ORDERED: fentaNYL 100 MCG/2 ML INJ ONE (13:49)
[2017-11-14] MEDS ORDERED: fentaNYL 100 MCG/2 ML INJ IVP ONE (14:00)
[2017-11-14] MEDS: SODIUM Cl 3% 500 ML IV SCH (14:43)
--- NOTE | 2017-11-14 19:22 | GPN ---
DATE OF PROCEDURE: 11/14/2017 CAMPUS RECRUITING COORDINATOR: None. PROCEDURE: Twist drill placement of right frontal ventriculostomy catheter. PREOPERATIVE DIAGNOSIS: Hydrocephalus. POSTOPERATIVE DIAGNOSES: Hydrocephalus. BRIEF CLINICAL HISTORY: The patient is a 67-year-old woman who presented with headaches and ventricu lomegaly. She was found to have a large, nearly 4 cm hemangioblastoma versus renal cell carcinoma in the superior vermis. She has had some compression of the brainstem with obstruction of the aqueduct . She remained minimally symptomatic and therefore underwent a posterior fossa craniotomy with resec tion of the tumor two days ago. She has been relatively somnolent since this time and still has vent riculomegaly on her scans. There is no sign of stroke, but I spoke with the family regarding the pos sibility of treating the hydrocephalus to be sure that this is not the cause of her postoperative jean-pierre nolence and this may be some postoperative changes which will resolve. The family agreed and we are proceeding at the bedside. PROCEDURE IN DETAIL: After informed consent was obtained from the patient's family, the patient was given 2 g of Ancef for preoperative antibiotics. A small patch of hair was clipped over Eleanor point 10 cm posterior to the nasion and 3 cm to the right of the midline. 5 cc of 0.25% Marcaine with epi nephrine was infiltrated in the skin for analgesia and hemostasis. The head was then prepped and jennifer ped in the normal sterile fashion. A stab incision was made over Eleanor point and a twist drill was used to create a twist drill hole in the skull. The dura was then punctured and a ventriculostomy ca theter was placed to a depth of 6 cm at the skin and a trajectory perpendicular with the skull. Bris k flow of clear CSF was obtained. The catheter was then tunneled and secured to the skin. The stab incision was closed using a 2-0 silk suture. The catheter was then connected to the monitoring syste m and the initial pressure was reading 16 mmHg, although some CSF had been drained with the original placement and I would estimate that the opening pressure was probably more consistent with 20-25. St erile dressings were placed and the patient tolerated the procedure well. Blood loss was minimal. /[id number]/MODL
[2017-11-14] MEDS: BACITRACIN OINTMENT 1 PACKET TP SCH (21:04)
[2017-11-14] MEDS: CHLORHEXIDINE GLUC HIBICLENS 118 ML BTL TP SCH ×2 (21:05→22:18)
[2017-11-14] MEDS: ACETAMINOPHEN 650 MG SUPP PR PRN (21:07)
[2017-11-15] MEDS: DEXAMETHASONE 4 MG/ML VIAL IVP SCH ×4 (00:29→17:59)
[2017-11-15] MEDS: niCARdipine/NACL 200 ML IV SCH (02:06)
[2017-11-15] MEDS: SODIUM Cl 3% 500 ML IV SCH (03:07)
[2017-11-15] MEDS: ACETAMINOPHEN 650 MG SUPP PR PRN (04:30)
--- NOTE | 2017-11-15 05:57 | NEUSURGPN ---
Assessment/Plan: A/P: 67 yo female POD#3 s/p resection of vermian hemangioblastoma EVD placed 11/14 , keep open at 5mmHG -Neuro: Morning interactive and following commands HCT (11/14) stable. Mannitol given. Goal Na is 140-145. Recheck Na this am is 140. Will try and wean 3% NS @ reduced to 10cc/hr. DC scopolamine patch. - Continue decadron 4q6 -Postop MRI shows tumor resection, slight hydrocephalus - Recommend Dobhoff tube and starting tube feeds - pain control -Nausea- monitor - PT/OT/CIVIL DESIGN TECHNICIAN -Q1 hour neuro checks -Seen by Dr. Livingston and myself -Please notify NS with any change on neuro/motor exam Subjective: Pt resting in bed, More Inactive this morning Objective: Pupils equal and reactive MAEx4 Following commands Incision c/d/i ICP 6 - Physician Patient Seen by : Miki Neurosurgery Physical Exam - Vitals, I&O, Labs I and O 11/13/17 11/14/17 11/15/17 05:59 05:59 05:59 Intake Total 1250 3298 1396 Output Total 1999 3649 2172 Balance -033 -756 -786 Weight 65 kg 65.74 kg 62.3 kg Intake: Oral (ml) 0 0 IV Infused (ml) 1250 3298 1396 Mannitol 20% 250 ml @ As 250 Directed 250 mls/hr IV ONCE ONE Rx#:[id number] NS W/ 20 KCl/L 1,000 ml @ 930 2026 100 mls/hr IV CONT JULES Rx#:[id number] Ns 1,000 ml @ 55 mls/hr 107 686 IV CONT JULES Rx#: [id number] SODIUM Cl 3% 500 ml @ 40 70 mls/hr IV CONT JULES Rx#: [id number] Sodium Cl 23.4% 7.7 meq 45 240 In Ns 50 ml @ 50 mls/hr IV ONCE ONE Rx#: [id number] niCARdipine/NACL 200 ml @ 320 870 400 Titrate IV CONT JULES Rx#: [id number] Output: Urine (ml) 1999 3649 1994 Catheter 3649 1994 Toilet 1999 CSF Drainage Amount 177 Ventriculostomy 177 Other: Number of Voids Toilet 3 Number of Stools Catheter 0 Vital Signs Temp Pulse Resp BP Pulse Ox 36.9 C 70 17 127/84 H 99 11/15/17 03:54 11/15/17 05:00 11/15/17 05:00 11/15/17 05:00 11/15/17 05:00 Laboratory Results 11/14/17 06:35 11/15/17 04:25 ICD10 Worksheet Patient Problems: Problems Problem Status Onset Brain tumor Acute
[2017-11-15] MEDS: OMEGA PO SCH (08:12)
[2017-11-15] MEDS: EPA PO SCH (08:12)
[2017-11-15] MEDS: PHOSPSERIN PO SCH (08:12)
[2017-11-15] MEDS: DHA PO SCH (08:12)
[2017-11-15] MEDS: SENNOSIDES/DOCUSATE SODIUM TAB PO SCH ×2 (08:12→20:39)
--- NOTE | 2017-11-15 09:59 | PDINTPN ---
Machine Feller Progress Note Assessment/Plan: 67 F with well controlled asthma presented with ataxia and found to have cerebellar mass. She underwent craniotomy and resection 11/12 without complications, though pathology is pending at this time. 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 A 4 mm exophytic renal cystic lesion was also noted on an abdominal CT. * Cerebellar mass- path still pending, but neurosurgery reports hemangioblastoma. EVD placed 11/14 with subsequent improvement in mental status to sitting up and following commands (still nonverbal). Na 140 with 3% gtt ( target 140-145). * Hypoxia- CXR last pm when O2 requirements increased to 15 lpm shows stable LLL atelectasis. NT suctioning performed with reduction in O2 requirement. Less likely PNA given drop in wbc without abx and in presence of dexamethasone. Recheck am. Added scheduled mucomyst and albuterol 11/15 to prevent further mucous plugging and improved mental status with productive cough should help. * asthma - currently stable on prn albuterol alone. * Renal cyst- unclear if related to cerebellar mass, though ash-Aioris-Hocbgz associated with both renal cysts and renal cell carcinoma. Dr. Montejo's last note seemed to agree with radiology that the renal cyst was likely benign. * RA- no therapy directed at this at the moment but is on dexamethasone * hx TBI from [facility] 25 yrs ago 11/14/17 10:44 11/15/17 09:53 Subjective: nonverbal, but up in chair and follows commands Objective: Vital Signs Temp Pulse Resp BP Pulse Ox 37.1 C 83 23 H 130/81 H 93 11/15/17 07:00 11/15/17 08:00 11/15/17 08:00 11/15/17 08:00 11/15/17 08:00 Laboratory Results 11/14/17 06:35 11/15/17 04:25 11/14/17 11/15/17 11/16/17 05:59 05:59 05:59 Intake Total 3298 2672 135 Output Total 3650 2292 140 Balance -352 380 -5 PT 12.8 SEC (12.0-15.0) 11/08/17 18:55 INR 0.94 (0.83-1.16) 11/08/17 18:55 Physical Exam - Physical Exam General Appearance: no apparent distress, other (somnolent but awake in chair and follows commands) EENT: PERRL/EOMI Neck: supple Respiratory: lungs clear, normal breath sounds, decreased breath sounds, No respiratory distress, No accessory muscle use Cardiac/Chest: regular rate, rhythm, No edema Abdomen: non-tender, soft, No distended Skin: normal color, warm/dry, No cyanosis Lymphatic: no adenopathy Extremities: No pedal edema Neuro/Psych: motor weakness, cognition abnormalities ICD10 Worksheet Patient Problems: Problems Problem Status Onset Brain tumor Acute
[2017-11-15] MEDS: BACITRACIN OINTMENT 1 PACKET TP SCH ×2 (10:00→20:38)
[2017-11-15] MEDS: ALBUTEROL 3 ML DEYVIAL IH SCH ×3 (10:39→21:02)
[2017-11-15] MEDS: ACETYLCYSTEINE 20% IH/PO 4 ML VIAL IH SCH ×3 (10:41→21:02)
[2017-11-15 10:55] LABS: PLATELET COUNT 175 10^3/uL (150-400)
[2017-11-15] MEDS: BREO ELLIPTA IH SCH (11:06)
[2017-11-15] MEDS: CHLORHEXIDINE GLUC HIBICLENS 118 ML BTL TP SCH ×2 (11:16→20:39)
[2017-11-15] MEDS: FAMOTIDINE 20 MG/NACL 50 ML IV SCH ×2 (11:16→20:39)
--- NOTE | 2017-11-15 14:02 | ASMTCMCOM ---
CM Note CM Note Notes: Discussed in ICU rounds. Clinically improving today working with therapies. Plan is for disposition to inpatient therapy when medically cleared for discharge. Spoke with Karine Chan and patient looks to be appropriate for rehab. CM to follow. Plan: Dc to inpatient rehab when medically cleared for discharge. Date Signed: 11/15/2017 02:01 PM Electronically Signed By:Hui Diaz RN
[2017-11-15] MEDS ORDERED: TEARS/DEXTRAN 70/HYPROMELLOSE 15 ML OPHT.BTL EACHEYE PRN (20:10)
[2017-11-15] MEDS: ACETAMINOPHEN 650 MG/20.3 ML UDCUP TUBE PRN (20:36)
[2017-11-16] MEDS: DEXAMETHASONE 4 MG/ML VIAL IVP SCH ×5 (00:05→23:10)
[2017-11-16] MEDS: ACETAMINOPHEN 650 MG/20.3 ML UDCUP TUBE PRN ×3 (02:15→22:49)
[2017-11-16] MEDS: ACETYLCYSTEINE 20% IH/PO 4 ML VIAL IH SCH (05:39)
[2017-11-16] MEDS: ALBUTEROL 3 ML DEYVIAL IH SCH (05:39)
[2017-11-16] MEDS: NS W/ 20 KCl/L 1,000 ML IV SCH ×2 (06:07→20:40)
[2017-11-16] MEDS: BREO ELLIPTA IH SCH (08:14)
--- NOTE | 2017-11-16 08:56 | NEUSURGPN ---
Assessment/Plan: A/P: 67 yo female POD#4 s/p resection of vermian hemangioblastoma EVD placed 11/14 , keep open at 5mmHG -Neuro: Morning interactive and following commands HCT (11/14) stable. Mannitol given. Goal Na is 140-145. 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 Quinones and Dr. Livingston -Please notify NS with any change on neuro/motor exam Subjective: Does not report any pain, resting comfortably. Objective: Pupils equal and reactive Dobhoff in place MAEx4 Following commands Incision c/d/i ICP 6 - Physician Discussed Patient with : Stacie Neurosurgery Physical Exam - Vitals, I&O, Labs I and O 11/15/17 11/16/17 11/17/17 05:59 05:59 05:59 Intake Total 2672 1153 922 Output Total 2292 1738 19 Balance 380 -585 903 Weight 62.3 kg 65.4 kg Intake: Oral (ml) 0 IV Infused (ml) 2672 1117 922 NS W/ 20 KCl/L 1,000 ml @ 629 55 mls/hr IV CONT JULES Rx #:[id number] Ns 1,000 ml @ 55 mls/hr 1376 640 IV CONT JULES Rx#: [id number] SODIUM Cl 3% 500 ml @ 10 536 265 245 mls/hr IV CONT JULES Rx#: [id number] Sodium Cl 23.4% 7.7 meq 240 In Ns 50 ml @ 50 mls/hr IV ONCE ONE Rx#: [id number] niCARdipine/NACL 200 ml @ 520 212 48 Titrate IV CONT JULES Rx#: [id number] Tube Feeding (ml) 36 Output: Urine (ml) 2105 1465 Catheter 2105 1465 CSF Drainage Amount 187 273 19 Ventriculostomy 187 273 19 Other: Number of Stools Catheter 0 Vital Signs Temp Pulse Resp BP Pulse Ox 36.6 C 59 L 18 137/82 H 96 11/16/17 07:00 11/16/17 07:00 11/16/17 07:00 11/16/17 07:00 11/16/17 07:00 Laboratory Results 11/15/17 10:45 11/16/17 06:10 ICD10 Worksheet Patient Problems: Problems Problem Status Onset Brain tumor Acute
[2017-11-16] MEDS: FAMOTIDINE 20 MG TAB TUBE SCH ×2 (09:34→20:35)
[2017-11-16] MEDS: BACITRACIN OINTMENT 1 PACKET TP SCH ×2 (09:34→20:35)
[2017-11-16] MEDS: SENNOSIDES/DOCUSATE SODIUM TAB PO SCH (09:34)
[2017-11-16] MEDS: EPA PO SCH (09:35)
[2017-11-16] MEDS: CHLORHEXIDINE GLUC HIBICLENS 118 ML BTL TP SCH ×2 (09:35→20:34)
[2017-11-16] MEDS: OMEGA PO SCH (09:35)
[2017-11-16] MEDS: PHOSPSERIN PO SCH (09:35)
[2017-11-16] MEDS: DHA PO SCH (09:35)
--- NOTE | 2017-11-16 09:35 | PDINTPN ---
Communications Supervisor Progress Note Assessment/Plan: 67 F with well controlled asthma presented with ataxia and found to have cerebellar mass. She underwent craniotomy and resection 11/12 without complications, though pathology is pending at this time. 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 A 4 mm exophytic renal cystic lesion was also noted on an abdominal CT. * Cerebellar mass- path consistent with hemangioblastoma. EVD placed 11/14 with subsequent improvement in mental status to sitting up and following commands. Able to speak independently and gave spontaneous "thumbs up" 11/16. Na 146 with 3 % gtt (target 140-145). * Hypoxia- CXR 11/15 when O2 requirements increased to 15 lpm shows stable LLL atelectasis. NT suctioning performed with reduction in O2 requirement. Less likely PNA given drop in wbc without abx and in presence of dexamethasone. Added scheduled mucomyst and albuterol 11/15 to prevent further mucous plugging and improved mental status with productive cough should help. Sat 96% on 3 lpm NC 11/16. * asthma - currently stable on prn albuterol alone. * Renal cyst- unclear if related to cerebellar mass, though zqd-Utoiql-Vweinf is associated with both renal cysts and renal cell carcinoma. Dr. Montejo's last note seemed to agree with radiology that the renal cyst was likely benign. Would favor recovery from craniotomy before further investigation, eg needle biopsy, but defer to oncology as outpatient. There are no designated [facility] care centers in [place]. https://www.vhl.org/about/resources/evyttppr-hzdq-cmzchsm- directory/hb-eafbkdlrboaqb-bbmwhmyp-care-centers/ is a resource that lists them , with the closest being [facility] or [facility]. * RA- no therapy directed at this at the moment but is on dexamethasone * hx TBI from [facility] 25 yrs ago 11/14/17 10:44 11/15/17 09:53 11/16/17 09:14 Subjective: No complaints and continued improved mental status Objective: Vital Signs Temp Pulse Resp BP Pulse Ox 36.6 C 59 L 18 137/82 H 96 11/16/17 07:00 11/16/17 07:00 11/16/17 07:00 11/16/17 07:00 11/16/17 07:00 Laboratory Results 11/15/17 10:45 11/16/17 06:10 11/15/17 11/16/17 11/17/17 05:59 05:59 05:59 Intake Total 2674 1153 922 Output Total 5863 1738 19 Balance 380 -585 903 PT 12.8 SEC (12.0-15.0) 11/08/17 18:55 INR 0.94 (0.83-1.16) 11/08/17 18:55 Physical Exam - Physical Exam General Appearance: alert, no apparent distress, other (minimal verbal) EENT: PERRL/EOMI Neck: supple Respiratory: lungs clear, normal breath sounds, No respiratory distress, No accessory muscle use Cardiac/Chest: regular rate, rhythm, No edema Abdomen: non-tender, soft, No distended Skin: normal color, warm/dry, No cyanosis Lymphatic: no adenopathy Extremities: No pedal edema Neuro/Psych: alert, cognition abnormalities ICD10 Worksheet Patient Problems: Problems Problem Status Onset Brain tumor Acute
[2017-11-16] MEDS: POLYETHYLENE GLYCOL 3350 17 GM PKT PO PRN (09:42)
[2017-11-16] MEDS: SENNOSIDES 17.6 MG/10 ML UDL PO SCH ×2 (10:12→20:35)
[2017-11-16] MEDS ORDERED: ACETYLCYSTEINE 20% IH/PO 4 ML VIAL IH PRN (11:00)
[2017-11-16] MEDS ORDERED: ALBUTEROL 3 ML DEYVIAL IH PRN (11:00)
[2017-11-16] MEDS: HYDROmorphONE/DILAUDID 1 MG/ML INJ IVP PRN (12:15)
[2017-11-16] MEDS: OXYCODONE/APAP 5/325 TAB PO PRN ×2 (13:27→13:58)
[2017-11-17] MEDS: HYDROmorphONE/DILAUDID 1 MG/ML INJ IVP PRN ×2 (02:40→10:07)
[2017-11-17] MEDS: hydrALAZINE 20 MG/ML VIAL IVP PRN ×3 (05:03→23:06)
[2017-11-17] MEDS: DEXAMETHASONE 4 MG/ML VIAL IVP SCH ×4 (05:25→23:14)
[2017-11-17] MEDS: EPA PO SCH (08:51)
[2017-11-17] MEDS: OMEGA PO SCH (08:51)
[2017-11-17] MEDS: FAMOTIDINE 20 MG TAB TUBE SCH ×2 (08:51→20:38)
[2017-11-17] MEDS: SENNOSIDES 17.6 MG/10 ML UDL PO SCH ×2 (08:51→20:38)
[2017-11-17] MEDS: BACITRACIN OINTMENT 1 PACKET TP SCH ×2 (08:51→19:53)
[2017-11-17] MEDS: DHA PO SCH (08:51)
[2017-11-17] MEDS: CHLORHEXIDINE GLUC HIBICLENS 118 ML BTL TP SCH ×2 (08:51→19:53)
[2017-11-17] MEDS: PHOSPSERIN PO SCH (08:51)
[2017-11-17] MEDS: BREO ELLIPTA IH SCH (09:03)
--- NOTE | 2017-11-17 10:01 | NEUSURGPN ---
Assessment/Plan: A/P: 67 yo female POD#5 s/p resection of vermian hemangioblastoma EVD placed 11/14 for hydrocephalus , keep open at 10mmHG -Neuro: Morning interactive and following commands HCT (11/14) stable. Mannitol given. Okay to normalize Na. - Continue decadron 4q6 -Postop MRI shows tumor resection, slight hydrocephalus, EVD has since been placed. Will increase to 10mmHG today - Continue Dobhoff tube and tube feeds - pain control -Nausea- monitor - PT/OT/PACKAGE CHECKER -Q1 hour neuro checks -Discussed with Dr. Quinones and Dr. Livingston -Please notify NS with any change on neuro/motor exam Subjective: Mild headache. Denies any nausea Objective: Alert and oriented. Pupils equal and reactive Dobhoff in place MAEx4 Following commands Incision c/d/i ICP 6 Catheter Insertion Date: 11/12/17 - Physician Discussed Patient with Dr.: Livingston Neurosurgery Physical Exam - Vitals, I&O, Labs I and O 11/16/17 11/17/17 11/18/17 05:59 05:59 05:59 Intake Total 1153 3601 Output Total 1738 1562 260 Balance -585 2039 -260 Weight 65.4 kg Intake: IV Infused (ml) 1117 2300 NS W/ 20 KCl/L 1,000 ml @ 1915 55 mls/hr IV CONT JULES Rx #:[id number] Ns 1,000 ml @ 55 mls/hr 640 IV CONT JULES Rx#: [id number] SODIUM Cl 3% 500 ml @ 10 265 312 mls/hr IV CONT JULES Rx#: [id number] niCARdipine/NACL 200 ml @ 212 73 Titrate IV CONT JULES Rx#: [id number] Tube Feeding (ml) 36 1101 Tube Flush (ml) 200 Output: Urine (ml) 1465 1315 225 Catheter 1465 1315 225 CSF Drainage Amount 273 247 35 Ventriculostomy 273 247 35 Vital Signs Temp Pulse Resp BP Pulse Ox 36.7 C 74 16 118/76 91 L 11/17/17 04:00 11/17/17 09:07 11/17/17 09:07 11/17/17 08:00 11/17/17 09:07 Laboratory Results 11/15/17 10:45 11/17/17 05:00 ICD10 Worksheet Patient Problems: Problems Problem Status Onset Brain tumor Acute
[2017-11-17] MEDS: OXYCODONE/APAP 5/325 TAB PO PRN ×3 (10:07→23:11)
[2017-11-17] MEDS ORDERED: MAGNESIUM HYDROXIDE 30 ML UDCUP TUBE PRN (11:30)
[2017-11-17] MEDS ORDERED: LACTULOSE 20 GM/30 ML UDCUP TUBE PRN (11:30)
[2017-11-17] MEDS: BISACODYL 10 MG SUPP PR PRN (12:07)
--- NOTE | 2017-11-17 12:42 | PDINTPN ---
Classroom Instructor Progress Note Assessment/Plan: 67 F with well controlled asthma presented with ataxia and found to have cerebellar mass. She underwent craniotomy and resection 11/12 without complications, though pathology is pending at this time. 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 A 4 mm exophytic renal cystic lesion was also noted on an abdominal CT. * Cerebellar mass- path consistent with hemangioblastoma. EVD placed 11/14 with subsequent improvement in mental status to sitting up and following commands. Able to speak independently and gave spontaneous "thumbs up" 11/16. Na 146 with 3 % gtt (target 140-145). BP creeping back up but only using prn hydralazine for now. NS adjusting EVD as well. * Hypoxia- CXR 11/15 when O2 requirements increased to 15 lpm shows stable LLL atelectasis. NT suctioning performed with reduction in O2 requirement. Less likely PNA given drop in wbc without abx and in presence of dexamethasone. Added scheduled mucomyst and albuterol 11/15 to prevent further mucous plugging and improved mental status with productive cough should help. Changed scheduled to prn only. Sat 96% on RA 11/17. * asthma - currently stable on prn albuterol alone. * Renal cyst- unclear if related to cerebellar mass, though gdj-Gjlaok-Dxwlzx is associated with both renal cysts and renal cell carcinoma. Dr. Montejo's last note seemed to agree with radiology that the renal cyst was likely benign. Would favor recovery from craniotomy before further investigation, eg needle biopsy, but defer to oncology as outpatient. Genetic mutation sent. There are no designated [facility] care centers in [place]. https://www.vhl.org/about/resources/ ouwzpwpf-kbkf-hmdzlye-directory/vx-pinwqjmockrww-ydahvali-care-centers/ is a resource that lists them, with the closest being [facility] or [facility]. * RA- no therapy directed at this at the moment but is on dexamethasone * hx TBI from [facility] 25 yrs ago Subjective: no events Objective: Vital Signs Temp Pulse Resp BP Pulse Ox 37.1 C 62 16 127/68 H 93 11/17/17 12:00 11/17/17 12:00 11/17/17 12:00 11/17/17 12:00 11/17/17 12:00 Laboratory Results 11/15/17 10:45 11/16/17 11/17/17 11/18/17 05:59 05:59 05:59 Intake Total 1153 3601 Output Total 1738 1562 291 Balance -585 2039 -291 PT 12.8 SEC (12.0-15.0) 11/08/17 18:55 INR 0.94 (0.83-1.16) 11/08/17 18:55 Physical Exam - Physical Exam General Appearance: alert, no apparent distress EENT: PERRL/EOMI Neck: supple Respiratory: lungs clear, normal breath sounds, No respiratory distress, No accessory muscle use Cardiac/Chest: regular rate, rhythm, No edema Abdomen: non-tender, soft, No distended Skin: normal color, warm/dry, No cyanosis Lymphatic: no adenopathy Extremities: No pedal edema Neuro/Psych: alert, cognition abnormalities ICD10 Worksheet Patient Problems: Problems Problem Status Onset Brain tumor Acute
[2017-11-18] MEDS: ACETAMINOPHEN 650 MG/20.3 ML UDCUP TUBE PRN ×2 (04:02→20:40)
[2017-11-18] MEDS: NS W/ 20 KCl/L 1,000 ML IV SCH (05:30)
[2017-11-18] MEDS: DEXAMETHASONE 4 MG/ML VIAL IVP SCH ×3 (05:35→18:18)
[2017-11-18] MEDS: SENNOSIDES 17.6 MG/10 ML UDL PO SCH ×2 (08:14→20:40)
[2017-11-18] MEDS: EPA PO SCH (08:15)
[2017-11-18] MEDS: PHOSPSERIN PO SCH (08:15)
[2017-11-18] MEDS: OMEGA PO SCH (08:15)
[2017-11-18] MEDS: BACITRACIN OINTMENT 1 PACKET TP SCH ×2 (08:15→20:41)
[2017-11-18] MEDS: CHLORHEXIDINE GLUC HIBICLENS 118 ML BTL TP SCH ×2 (08:15→20:40)
[2017-11-18] MEDS: FAMOTIDINE 20 MG TAB TUBE SCH ×2 (08:15→20:40)
[2017-11-18] MEDS: DHA PO SCH (08:15)
--- NOTE | 2017-11-18 08:31 | NEUSURGPN ---
Assessment/Plan: A/P: 67 yo female POD#5 s/p resection of vermian hemangioblastoma EVD placed 11/14 for hydrocephalus , keep open at 5mmHG -Neuro: Morning interactive and following commands - HCT: Some blood along the ventric track. continued cerebral swelling Okay to normalize Na. - Continue decadron 4q6 -Postop MRI shows tumor resection, slight hydrocephalus, EVD has since been placed. EVD dropped from 10mmHG to 5mmHG yesterday becasue patient became more sleepy. Improved. Ventric with some blood in tubing this morning, flushed by DR. Livingston. - Continue Dobhoff tube and tube feeds - pain control -Nausea- monitor - PT/OT/PLUMBING AND HEATING CONTRACTOR -Q1 hour neuro checks -Seen by Dr. Livingston and myself this morning. -Please notify NS with any change on neuro/motor exam Subjective: Mild headache. Objective: Pupils equal and reactive Dobhoff in place MAEx4 Following commands Incision c/d/i CSF blood tinged. ICP 8 Catheter Insertion Date: 11/12/17 - Physician Patient Seen by : Miki Neurosurgery Physical Exam - Vitals, I&O, Labs I and O 11/17/17 11/18/17 11/19/17 05:59 05:59 05:59 Intake Total 3601 2879 Output Total 1562 2305 10 Balance 2039 574 -10 Weight 65.4 kg Intake: IV Infused (ml) 2300 1515 NS W/ 20 KCl/L 1,000 ml @ 1915 1515 55 mls/hr IV CONT JULES Rx #:[id number] SODIUM Cl 3% 500 ml @ 10 312 mls/hr IV CONT JULES Rx#: [id number] niCARdipine/NACL 200 ml @ 73 Titrate IV CONT JULES Rx#: [id number] Tube Feeding (ml) 1101 1064 Tube Flush (ml) 200 300 Output: Urine (ml) 1315 2020 Catheter 1315 2020 CSF Drainage Amount 247 285 10 Ventriculostomy 247 285 10 Other: Number of Stools Bedside Commode 1 Vital Signs Temp Pulse Resp BP Pulse Ox 37.1 C 60 17 107/72 94 11/18/17 04:00 11/18/17 07:00 11/18/17 07:00 11/18/17 07:00 11/18/17 07:00 Laboratory Results 11/15/17 10:45 11/18/17 06:05 ICD10 Worksheet Patient Problems: Problems Problem Status Onset Brain tumor Acute
[2017-11-18] MEDS: BREO ELLIPTA IH SCH (09:12)
[2017-11-18] MEDS: hydrALAZINE 20 MG/ML VIAL IVP PRN ×2 (10:23→18:28)
--- NOTE | 2017-11-18 14:19 | ASMTCMCOM ---
CM Note CM Note Notes: Met with patient's sister, Kaylyn in "Family Meeting"- See "Family Meeting" Notes. Kaylyn and Haroon- patient's partner are her MPOA's. Kaylyn is interested in what's best for her sister's Rehab and would like to visit [facility] In-pt Rehab as well as [facility]. Gave her [facility] brochure and left message for Karine for a possible tour. Will send referrals to both facilities. Date Signed: 11/18/2017 02:18 PM Electronically Signed By:Agustina Kirkland LCSW
--- NOTE | 2017-11-18 14:48 | PDINTPN ---
User Support Specialist Progress Note Assessment/Plan: Assessment: 67 F with well controlled asthma presented with ataxia and found to have cerebellar mass. She underwent craniotomy and resection 11/12 without complications. 4 mm exophytic renal cystic lesion was also noted on an abdominal CT. * Cerebellar mass- path consistent with hemangioblastoma. EVD placed 11/14 with subsequent improvement in mental status to sitting up and following commands. Neuro continues to improve. BP creeping back up but only using prn hydralazine for now. NS adjusting EVD as well, still draining CSF at a fairly good rate, EVD likely to stay in for a few more days. * Hypoxia- CXR 11/15 when O2 requirements increased to 15 lpm shows stable LLL atelectasis. Now improved, sats OK on RA, not needing nebs. * asthma - currently stable on prn albuterol alone. * Renal cyst- unclear if related to cerebellar mass, though opb-Mmthxi-Tytazj is associated with both renal cysts and renal cell carcinoma. Dr. Montejo's last note seemed to agree with radiology that the renal cyst was likely benign. Would favor recovery from craniotomy before further investigation, eg needle biopsy, but defer to oncology as outpatient. Genetic mutation sent. There are no designated [facility] care centers in [place]. https://www.vhl.org/about/resources/ mgpjgpmk-egsz-thsknpi-directory/fh-idkmfiwjoduqt-bzfwgspq-care-centers/ is a resource that lists them, with the closest being [facility] or [facility]. * RA- no therapy directed at this at the moment but is on dexamethasone * Hx TBI from [facility] 25 yrs ago Plan: Continue EVD management per NS. Hydralazine PRN hypotension. Continue TF until her PO intake improves. Activity as tolerated. 11/18/17 14:55 Subjective: Feels OK, minimal GARCIA, Still fatigues quickly and very unsteady, requiring significant assist. Poor appetite. Objective: Vital Signs Temp Pulse Resp BP Pulse Ox 36.4 C 66 19 122/77 H 93 11/18/17 08:00 11/18/17 14:00 11/18/17 14:00 11/18/17 14:00 11/18/17 14:00 Laboratory Results 11/15/17 10:45 11/18/17 06:05 11/17/17 11/18/17 11/19/17 05:59 05:59 05:59 Intake Total 3601 8581 Output Total 1563 5545 885 Balance 2039 574 -489 PT 12.8 SEC (12.0-15.0) 11/08/17 18:55 INR 0.94 (0.83-1.16) 11/08/17 18:55 Physical Exam - Physical Exam General Appearance: alert, no apparent distress EENT: normal ENT inspection Neck: normal inspection Respiratory: normal breath sounds Cardiac/Chest: regular rate, rhythm, No edema Abdomen: normal bowel sounds, non-tender Skin: normal color, warm/dry Extremities: normal inspection Neuro/Psych: alert, normal mood/affect, oriented x 3 ICD10 Worksheet Patient Problems: Problems Problem Status Onset Brain tumor Acute
[2017-11-18] MEDS: ESTRADIOL VIVELLE 0.025 MG PATCH TD SCH (16:36)
[2017-11-19] MEDS: DEXAMETHASONE 4 MG/ML VIAL IVP SCH ×4 (00:41→17:51)
[2017-11-19] MEDS: ACETAMINOPHEN 650 MG/20.3 ML UDCUP TUBE PRN ×2 (04:43→12:44)
[2017-11-19] MEDS: SENNOSIDES 17.6 MG/10 ML UDL PO SCH ×2 (09:34→20:24)
[2017-11-19] MEDS: FAMOTIDINE 20 MG TAB TUBE SCH ×2 (09:34→20:23)
[2017-11-19] MEDS: POLYETHYLENE GLYCOL 3350 17 GM PKT PO PRN (09:35)
[2017-11-19] MEDS: BACITRACIN OINTMENT 1 PACKET TP SCH ×2 (09:35→20:23)
[2017-11-19] MEDS: CHLORHEXIDINE GLUC HIBICLENS 118 ML BTL TP SCH ×2 (09:36→20:23)
--- NOTE | 2017-11-19 09:55 | NEUSURGPN ---
Assessment/Plan: A/P: 67 yo female POD#6 s/p resection of vermian hemangioblastoma EVD placed 11/14 for hydrocephalus , keep open at 5mmHG -Neuro: Morning interactive and following commands - HCT: Some blood along the ventric track. continued cerebral swelling - Continue decadron 4q6 -Postop MRI shows tumor resection, slight hydrocephalus, EVD has since been placed. EVD dropped from 10mmHG to 5mmHG Saturday because patient became more sleepy. Improved. - Continue Dobhoff tube and tube feeds until cleared by BROKER, Okay to normalize Na. Will change control coordinator tube feed flushes to NS - PT/OT/BROKER -Q1 hour neuro checks -Seen by Dr. Livingston, Dr. Quinones and myself this morning. -Please notify NS with any change on neuro/motor exam Subjective: Mild headache Objective: NAD Alert, oriented and follows commands PERRLA Ventric site and incison c/d/i CSF blood tinged, ICP4 MAEx4 5/5 and equal in BUE and BLE Catheter Insertion Date: 11/12/17 - Physician Patient Seen by : Miki (and Dr. Quinones) Neurosurgery Physical Exam - Vitals, I&O, Labs I and O 11/18/17 11/19/17 11/20/17 05:59 05:59 05:59 Intake Total 2879 1837 Output Total 2305 1676 28 Balance 574 161 -28 Intake: IV Infused (ml) 1515 579 NS W/ 20 KCl/L 1,000 ml @ 1515 579 55 mls/hr IV CONT JULES Rx #:[id number] Tube Feeding (ml) 1064 1008 Tube Flush (ml) 300 250 Output: Urine (ml) 2020 1525 Bedside Commode 1250 Catheter 2020 275 NG Tube Output (ml) 0 Small Bore (5-12 Arabic) 0 Weighted Right Naris Stomach CSF Drainage Amount 285 151 28 Ventriculostomy 285 151 28 Other: Number of Voids Toilet 1 Number of Stools Bedside Commode 1 0 Vital Signs Temp Pulse Resp BP Pulse Ox 37.1 C 78 17 122/78 H 92 11/19/17 07:00 11/19/17 08:00 11/19/17 08:00 11/19/17 08:00 11/19/17 08:00 Laboratory Results 11/15/17 10:45 11/18/17 06:05 ICD10 Worksheet Patient Problems: Problems Problem Status Onset Brain tumor Acute
[2017-11-19] MEDS: BREO ELLIPTA IH SCH (10:43)
[2017-11-19] MEDS: BISACODYL 10 MG SUPP PR PRN (12:44)
--- NOTE | 2017-11-19 13:24 | PDINTPN ---
Registered Massage Therapist Progress Note Assessment/Plan: Assessment: 67 F with well controlled asthma presented with ataxia and found to have cerebellar mass. She underwent craniotomy and resection 11/12 without complications. 4 mm exophytic renal cystic lesion was also noted on an abdominal CT. * Cerebellar mass- path consistent with hemangioblastoma. EVD placed 11/14 with subsequent improvement in mental status to sitting up and following commands. Neuro continues to improve. BP creeping back up but only using prn hydralazine for now. NS adjusting EVD as well, still draining CSF at a fairly good rate, EVD likely to stay in for a few more days. * Hypoxia- CXR 11/15 when O2 requirements increased to 15 lpm shows stable LLL atelectasis. Now improved, sats OK on RA, not needing nebs. * asthma - currently stable on prn albuterol alone. * Renal cyst- unclear if related to cerebellar mass, though ebd-Gapkbv-Mgsghu is associated with both renal cysts and renal cell carcinoma. Dr. Montejo's last note seemed to agree with radiology that the renal cyst was likely benign. Would favor recovery from craniotomy before further investigation, eg needle biopsy, but defer to oncology as outpatient. Genetic mutation sent. There are no designated [facility] care centers in [place]. https://www.vhl.org/about/resources/ ktwmdgab-aufh-rsondls-directory/jz-axgrrvwdktfom-pvhlefaf-care-centers/ is a resource that lists them, with the closest being [facility] or [facility]. * RA- no therapy directed at this at the moment but is on dexamethasone * Hx TBI from [facility] 25 yrs ago * Nutrition: On TF. Poor PO intake. Plan: Continue EVD management per NS. Hydralazine PRN hypotension. Continue TF until her PO intake improves, try to change to bolus feedings. Activity as tolerated. Decrease neuro checks per NS. 11/19/17 13:22 Subjective: Feels a bit better, strength improved. Still has a mild headache. Appetite poor. Objective: Vital Signs Temp Pulse Resp BP Pulse Ox 37.1 C 69 13 122/91 H 95 11/19/17 07:00 11/19/17 12:00 11/19/17 12:00 11/19/17 12:00 11/19/17 12:00 Laboratory Results 11/15/17 10:45 11/18/17 06:05 11/18/17 11/19/17 11/20/17 05:59 05:59 05:59 Intake Total 2870 1837 Output Total 2307 0186 77 Balance 574 161 -77 PT 12.8 SEC (12.0-15.0) 11/08/17 18:55 INR 0.94 (0.83-1.16) 11/08/17 18:55 Physical Exam - Physical Exam General Appearance: alert, no apparent distress EENT: normal ENT inspection Neck: normal inspection Respiratory: lungs clear, normal breath sounds Cardiac/Chest: regular rate, rhythm, edema Abdomen: normal bowel sounds, non-tender Skin: normal color, warm/dry Extremities: normal inspection Neuro/Psych: alert, normal mood/affect ICD10 Worksheet Patient Problems: Problems Problem Status Onset Brain tumor Acute
[2017-11-19] MEDS: EPA PO SCH (13:41)
[2017-11-19] MEDS: traMADol 50 MG TAB PO PRN (13:41)
[2017-11-19] MEDS: DHA PO SCH (13:41)
[2017-11-19] MEDS: OMEGA PO SCH (13:41)
[2017-11-19] MEDS: PHOSPSERIN PO SCH (13:41)
--- NOTE | 2017-11-19 15:08 | ASMTCMCOM ---
CM Note CM Note Notes: [facility] called this CM to say that they did not admit patient's with medical brain injuries. Spoke to patient's sister and patient's partner, they would like to her to be admitted to [facility] Re[facility]. Sister would like to talk with Dr Montejo. Contacted his office. Date Signed: 11/19/2017 03:07 PM Electronically Signed By:Agustina Kirkland LCSW
[2017-11-19] MEDS: OXYCODONE/APAP 5/325 TAB PO PRN (16:28)
[2017-11-19] MEDS: MELATONIN 3 MG TAB PO SCH (20:23)
[2017-11-20] MEDS: DEXAMETHASONE 4 MG/ML VIAL IVP SCH ×4 (00:40→17:57)
--- NOTE | 2017-11-20 08:37 | SOAPPROG ---
SOAP Progress Note Assessment/Plan: Assessment: 67 yo F POD #8 suboccipital craniotomy for resection of cerebellar hemangioblastoma Plan: neuro: stable ICPs low at 9 mmhg on manual check, will raise EVD to open to drain at 10 mmhg would like normalized Na, Na is 138 this morning PT/OT/ST scd/annie for dvt prophylaxis please call with neuro changes patient seen by Dr Quinones 11/20/17 08:33 Subjective: no headaches, no N/V. Objective: Vital Signs Temp Pulse Resp BP Pulse Ox 36.4 C 99 16 112/77 94 11/20/17 07:00 11/20/17 08:00 11/20/17 08:00 11/20/17 08:00 11/20/17 08:00 Laboratory Results 11/15/17 10:45 11/20/17 05:00 11/19/17 11/20/17 11/21/17 05:59 05:59 05:59 Intake Total 1837 2048 Output Total 1676 2001 14 Balance 161 46 -14 PT 12.8 SEC (12.0-15.0) 11/08/17 18:55 INR 0.94 (0.83-1.16) 11/08/17 18:55 Awake, oriented to year only, confused to month/location PERRL, no facial droop FRANCO x 4 + light touch C/D/I ICD10 Worksheet Patient Problems: Problems Problem Status Onset Brain tumor Acute
[2017-11-20] MEDS: BACITRACIN OINTMENT 1 PACKET TP SCH ×2 (08:43→21:00)
[2017-11-20] MEDS: SENNOSIDES 17.6 MG/10 ML UDL PO SCH ×2 (08:43→20:58)
[2017-11-20] MEDS: FAMOTIDINE 20 MG TAB TUBE SCH ×2 (08:43→20:59)
[2017-11-20] MEDS: CHLORHEXIDINE GLUC HIBICLENS 118 ML BTL TP SCH ×2 (08:44→20:59)
[2017-11-20] MEDS: BREO ELLIPTA IH SCH (08:44)
[2017-11-20] MEDS: DHA PO SCH (08:46)
[2017-11-20] MEDS: PHOSPSERIN PO SCH (08:46)
[2017-11-20] MEDS: OMEGA PO SCH (08:46)
[2017-11-20] MEDS: EPA PO SCH (08:46)
--- NOTE | 2017-11-20 09:59 | PDINTPN ---
Green Building Design Specialist Progress Note Assessment/Plan: Assessment: 67 F with well controlled asthma presented with ataxia and found to have cerebellar mass. She underwent craniotomy and resection 11/12 without complications. 4 mm exophytic renal cystic lesion was also noted on an abdominal CT. * Cerebellar mass- path consistent with hemangioblastoma. EVD placed 11/14 with subsequent improvement in mental status to sitting up and following commands. Neuro continues to improve. BP creeping back up but only using prn hydralazine for now. NS adjusting EVD as well, still draining CSF at a fairly good rate, just elevated to 10 cmh2O, and EVD likely to stay in for a few more days. * Hypoxia- CXR 11/15 when O2 requirements increased to 15 lpm shows stable LLL atelectasis. Now improved, sats OK on RA, not needing nebs. * asthma - currently stable on prn albuterol alone. * Renal cyst- unclear if related to cerebellar mass, though iwh-Wzfvib-Kjstoc is associated with both renal cysts and renal cell carcinoma. Dr. Montejo's last note seemed to agree with radiology that the renal cyst was likely benign. Would favor recovery from craniotomy before further investigation, eg needle biopsy, but defer to oncology as outpatient. Genetic mutation sent. There are no designated [facility] care centers in [place]. https://www.vhl.org/about/resources/ vrrzjuwe-gvgu-hbaqkmr-directory/mf-ywvxqxkqfotfv-gpztgjtf-care-centers/ is a resource that lists them, with the closest being [facility] or [facility]. * RA- no therapy directed at this at the moment but is on dexamethasone * Hx TBI from [facility] 25 yrs ago * Nutrition: On TF. Poor PO intake, but improving. Plan: Continue EVD management per NS. Hydralazine PRN hypotension. Continue TF for now, if able to start taking more PO, could D/C. Videoswallow if needed once feeding tube out. Activity as tolerated. Decrease neuro checks per NS. 11/19/17 13:22 11/20/17 09:58 Subjective: Slept better last night. Denies pain. Still with poor appetite. Objective: Vital Signs Temp Pulse Resp BP Pulse Ox 36.4 C 87 17 93/52 L 94 11/20/17 07:00 11/20/17 09:00 11/20/17 09:00 11/20/17 09:00 11/20/17 09:00 Laboratory Results 11/15/17 10:45 11/20/17 05:00 11/19/17 11/20/17 11/21/17 05:59 05:59 05:59 Intake Total 1837 8 Output Total 1675 Balance 161 46 -14 PT 12.8 SEC (12.0-15.0) 11/08/17 18:55 INR 0.94 (0.83-1.16) 11/08/17 18:55 Physical Exam - Physical Exam General Appearance: alert, no apparent distress Neck: normal inspection Respiratory: lungs clear, normal breath sounds, respiratory distress Cardiac/Chest: regular rate, rhythm, edema Abdomen: normal bowel sounds, non-tender Skin: normal color, warm/dry Extremities: normal inspection Neuro/Psych: alert, No motor weakness ICD10 Worksheet Patient Problems: Problems Problem Status Onset Brain tumor Acute
[2017-11-20] MEDS: traMADol 50 MG TAB PO PRN (17:13)
[2017-11-20] MEDS: OXYCODONE/APAP 5/325 TAB PO PRN (18:14)
[2017-11-20] MEDS: MELATONIN 3 MG TAB PO SCH (20:59)
--- NOTE | 2017-11-20 21:50 | NEUSURGPN ---
Assessment/Plan: RN called with EVD not functioning. RN tried flushing away from patient with no improvement. CT head reviewed with slight increase in hydrocephalus and redistribution of blood products. EVD placed well. I flushed about 1cc NS towards pt and away from pt and drain now functioning well. Pt is awake and alert, following commands well Please call NS with any neuro changes or other issues with the EVD. Updated Dr Quinones. Catheter Insertion Date: 11/12/17 - Physician Discussed Patient with Dr.: Quinones Neurosurgery Physical Exam - Vitals, I&O, Labs I and O 11/19/17 11/20/17 11/21/17 05:59 05:59 05:59 Intake Total 1837 2048 960 Output Total 1676 2002 696 Balance 161 46 264 Intake: Oral (ml) 0 250 IV Infused (ml) 579 608 NS W/ 20 KCl/L 1,000 ml @ 579 608 100 mls/hr IV CONT JULES Rx#:[id number] Tube Feeding (ml) 1008 1030 540 Tube Flush (ml) 250 410 170 Output: Urine (ml) 1525 1775 675 Bedside Commode 1250 1775 675 Catheter 275 NG Tube Output (ml) 0 Small Bore (5-12 Mexican) 0 Weighted Right Naris Stomach CSF Drainage Amount 151 227 21 Ventriculostomy 151 227 21 Other: Number of Voids Bedside Commode 2 1 Toilet 1 Number of Stools Bedside Commode 0 0 Vital Signs Temp Pulse Resp BP Pulse Ox 36.6 C 62 15 130/80 H 93 11/20/17 19:00 11/20/17 20:00 11/20/17 20:00 11/20/17 20:00 11/20/17 20:00 Laboratory Results 11/15/17 10:45 11/20/17 05:00 ICD10 Worksheet Patient Problems: Problems Problem Status Onset Brain tumor Acute
[2017-11-21] MEDS: DEXAMETHASONE 4 MG/ML VIAL IVP SCH ×4 (00:40→17:58)
--- NOTE | 2017-11-21 07:46 | NEUSURGPN ---
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 continued cerebral swelling - Continue decadron 4q6 -Postop MRI shows tumor resection, slight hydrocephalus, EVD has since been placed. EVD increased 15mmHG today Improved. EVD flushed by Dr. Livingston this morning - Continue Dobhoff tube and tube feeds until cleared by SHORT FILLER BUNCH MACHINE OPERATOR, Normalize Na goal. Will government contracts manager tube feed flushes to NS - PT/OT/SHORT FILLER BUNCH MACHINE OPERATOR -Q2 hour neuro checks -Seen by Dr. Livingston and myself this morning. -Please notify NS with any change on neuro/motor exam Subjective: Mild headache, states speech is improving Objective: NAD Alert, oriented and follows commands PERRLA, EOMI Ventric site and incision c/d/i CSF blood tinged, ICP6 MAEx4 5/5 and equal in BUE and BLE Catheter Insertion Date: 11/12/17 - Physician Patient Seen by Dr.: Livingston Neurosurgery Physical Exam - Vitals, I&O, Labs I and O 11/20/17 11/21/17 11/22/17 05:59 05:59 05:59 Intake Total 20470 Output Total 20019 0 Balance 46 101 0 Intake: Oral (ml) 0 350 IV Infused (ml) 608 NS W/ 20 KCl/L 1,000 ml @ 608 100 mls/hr IV CONT JULES Rx#:[id number] Tube Feeding (ml) 1030 1080 Tube Flush (ml) 410 440 Output: Urine (ml) 1775 1725 Bedside Commode 1775 1725 CSF Drainage Amount 227 44 0 Ventriculostomy 227 44 0 Other: Number of Voids Bedside Commode 2 1 Number of Stools Bedside Commode 0 Vital Signs Temp Pulse Resp BP Pulse Ox 36.6 C 60 18 128/90 H 93 11/20/17 19:00 11/21/17 06:00 11/21/17 06:00 11/21/17 06:00 11/21/17 06:00 Laboratory Results 11/15/17 10:45 11/21/17 04:25 ICD10 Worksheet Patient Problems: Problems Problem Status Onset Brain tumor Acute
[2017-11-21] MEDS: ESTRADIOL VIVELLE 0.025 MG PATCH TD SCH (08:24)
[2017-11-21] MEDS: CHLORHEXIDINE GLUC HIBICLENS 118 ML BTL TP SCH ×2 (08:36→20:18)
[2017-11-21] MEDS: BACITRACIN OINTMENT 1 PACKET TP SCH ×2 (08:36→20:19)
[2017-11-21] MEDS: BREO ELLIPTA IH SCH (09:36)
[2017-11-21] MEDS: traMADol 50 MG TAB PO PRN ×2 (09:45→17:57)
[2017-11-21] MEDS: SENNOSIDES 17.6 MG/10 ML UDL PO SCH ×2 (09:46→20:22)
[2017-11-21] MEDS: FAMOTIDINE 20 MG TAB TUBE SCH ×2 (09:46→20:22)
[2017-11-21] MEDS ORDERED: OXYCODONE/APAP 5/325 TAB PO PRN (09:55)
--- NOTE | 2017-11-21 11:04 | PDINTPN ---
Arts And Crafts Instructor Progress Note Assessment/Plan: Assessment: 67 F with well controlled asthma presented with ataxia and found to have cerebellar mass. She underwent craniotomy and resection 11/12 without complications. 4 mm exophytic renal cystic lesion was also noted on an abdominal CT. * Cerebellar mass- path consistent with hemangioblastoma. EVD placed 11/14 with subsequent improvement in mental status to sitting up and following commands. Neuro continues to improve. BP creeping back up but only using prn hydralazine for now. NS adjusting EVD as well, still draining CSF at a fairly good rate, just elevated to 10 cmh2O, and EVD likely to stay in for a few more days. * Hypoxia- CXR 11/15 when O2 requirements increased to 15 lpm shows stable LLL atelectasis. Now improved, sats OK on RA, not needing nebs. * asthma - currently stable on prn albuterol alone. * Renal cyst- unclear if related to cerebellar mass, though dev-[id number]-[id number] is associated with both renal cysts and renal cell carcinoma. Dr. Montejo's last note seemed to agree with radiology that the renal cyst was likely benign. Would favor recovery from craniotomy before further investigation, eg needle biopsy, but defer to oncology as outpatient. Genetic mutation sent. There are no designated [facility] care centers in [place]. https://www.vhl.org/about/resources/ hwrrizgi-deyf-pqesvij-directory/ly-okpuklxgbfzog-yiungxvm-care-centers/ is a resource that lists them, with the closest being [facility] or [facility]. * RA- no therapy directed at this at the moment but is on dexamethasone * Hx TBI from [facility] 25 yrs ago * Nutrition: On TF. Poor PO intake, but improving. Plan: Continue EVD management per NS. Hydralazine PRN hypertension. Continue TF for now, ST evaluation today if if she can eat 25-50% of target, I'd be in favor of removing feeding tube prior to video swallow later today.if able to start taking more PO, could D/C. Activity as tolerated. 11/21/17 11:04 Subjective: Feels OK, denies GARCIA. Can't remember if she slept well last night. Fair appetite. Objective: Vital Signs Temp Pulse Resp BP Pulse Ox 36.6 C 98 19 123/88 H 95 11/21/17 07:00 11/21/17 09:37 11/21/17 09:37 11/21/17 08:00 11/21/17 09:37 Laboratory Results 11/15/17 10:45 11/21/17 04:25 11/20/17 11/21/17 11/22/17 05:59 05:59 05:59 Intake Total 2047 1869 Output Total 2001 1769 8 Balance 46 101 -8 PT 12.8 SEC (12.0-15.0) 11/08/17 18:55 INR 0.94 (0.83-1.16) 11/08/17 18:55 Physical Exam - Physical Exam General Appearance: alert, no apparent distress EENT: normal ENT inspection Neck: normal inspection Respiratory: lungs clear, normal breath sounds, respiratory distress Cardiac/Chest: regular rate, rhythm, No edema Abdomen: normal bowel sounds, non-tender, soft Skin: normal color, warm/dry Extremities: normal inspection Neuro/Psych: alert, normal mood/affect, No oriented x 3 ICD10 Worksheet Patient Problems: Problems Problem Status Onset Brain tumor Acute
[2017-11-21] MEDS: EPA PO SCH (11:11)
[2017-11-21] MEDS: PHOSPSERIN PO SCH (11:11)
[2017-11-21] MEDS: OMEGA PO SCH (11:11)
[2017-11-21] MEDS: DHA PO SCH (11:11)
[2017-11-21] MEDS: MELATONIN 3 MG TAB PO SCH (20:22)
[2017-11-22] MEDS: DEXAMETHASONE 4 MG/ML VIAL IVP SCH ×4 (00:30→17:58)
--- NOTE | 2017-11-22 07:55 | NEUSURGPN ---
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 continued cerebral swelling - Continue decadron 4q6 -Postop MRI shows tumor resection, slight hydrocephalus, EVD has since been placed. EVD increased to 20 mmHG today. If tolerates will clamp EVD tomorrow - Diet being advanced by GROCERY SHOPPER - PT/OT/GROCERY SHOPPER -Q2 hour neuro checks -D/w Dr Livingston -Please notify NS with any change on neuro/motor exam Subjective: Pt resting in bed, very low grade headache. Feeling ok otherwise. Objective: Awake and alert. Oriented to self and location, not to date. Unable to recite NAD VSS MAEx4 Motor 5/5 BUE/BLE follows all commands EVD and incision sites clean Urinary Catheter in Place: No Catheter Insertion Date: 11/12/17 - Physician Discussed Patient with Dr.: Livingston Neurosurgery Physical Exam - Vitals, I&O, Labs I and O 11/21/17 11/22/17 11/23/17 05:59 05:59 05:59 Intake Total 1870 1150 Output Total 1769 2637 Balance 101 -1487 Intake: Oral (ml) 350 1150 Tube Feeding (ml) 1080 Tube Flush (ml) 440 Output: Urine (ml) 1725 2625 Bedside Commode 1725 2625 CSF Drainage Amount 44 12 Ventriculostomy 44 12 Other: Number of Voids Bedside Commode 1 1 Vital Signs Temp Pulse Resp BP Pulse Ox 36.6 C 50 L 12 120/80 93 11/21/17 20:00 11/22/17 06:00 11/22/17 06:00 11/22/17 06:00 11/22/17 06:00 Laboratory Results 11/15/17 10:45 11/22/17 05:30 ICD10 Worksheet Patient Problems: Problems Problem Status Onset Brain tumor Acute
[2017-11-22] MEDS: BREO ELLIPTA IH SCH (08:02)
--- NOTE | 2017-11-22 09:13 | ASMTCMCOM ---
CM Note CM Note Notes: Spoke with patient's sister, Kaylyn and partner, Haroon yesterday and they are both supportive of patient going for inpatient rehab when she is medically stable. Spoke with Karine who states patient has been accepted into the program and she is monitoring her progress as she remians in the ICU. Patient will most likely be ready for discharge in the next couple of days. CM will follow. Date Signed: 11/22/2017 09:13 AM Electronically Signed By:Kaylah Nicole LCSW
[2017-11-22] MEDS: SENNOSIDES 17.6 MG/10 ML UDL PO SCH ×2 (09:24→21:10)
[2017-11-22] MEDS: FAMOTIDINE 20 MG TAB TUBE SCH ×2 (09:24→19:25)
[2017-11-22] MEDS: BACITRACIN OINTMENT 1 PACKET TP SCH ×2 (09:25→19:27)
[2017-11-22] MEDS: PHOSPSERIN PO SCH (09:28)
[2017-11-22] MEDS: OMEGA PO SCH (09:28)
[2017-11-22] MEDS: DHA PO SCH (09:28)
[2017-11-22] MEDS: EPA PO SCH (09:28)
[2017-11-22] MEDS: CHLORHEXIDINE GLUC HIBICLENS 118 ML BTL TP SCH ×2 (09:30→19:27)
--- NOTE | 2017-11-22 09:52 | PDINTPN ---
Risk Compliance Analyst Progress Note Assessment/Plan: Assessment: 67 F with well controlled asthma presented with ataxia and found to have cerebellar mass. She underwent craniotomy and resection 11/12 without complications. 4 mm exophytic renal cystic lesion was also noted on an abdominal CT. * Cerebellar mass- path consistent with hemangioblastoma. EVD placed 11/14 with subsequent improvement in mental status to sitting up and following commands. Neuro continues to improve. BP creeping back up but only using prn hydralazine for now. NS adjusting EVD as well, still draining CSF at a fairly good rate, just elevated to 10 cmh2O, and EVD likely to stay in for a few more days. * Hypoxia- CXR 11/15 when O2 requirements increased to 15 lpm shows stable LLL atelectasis. Now improved, sats OK on RA, not needing nebs. * asthma - currently stable on prn albuterol alone. * Renal cyst- unclear if related to cerebellar mass, though jfo-Wiijed-Fkacbu is associated with both renal cysts and renal cell carcinoma. Dr. Montejo's last note seemed to agree with radiology that the renal cyst was likely benign. Would favor recovery from craniotomy before further investigation, eg needle biopsy, but defer to oncology as outpatient. Genetic mutation sent. There are no designated [facility] care centers in [place]. https://www.vhl.org/about/resources/ stzjaucr-pydz-oeluqqd-directory/mc-aayocgbvqadiw-engvwmif-care-centers/ is a resource that lists them, with the closest being [facility] or [facility]. * RA- no therapy directed at this at the moment but is on dexamethasone * Hx TBI from [facility] 25 yrs ago * Nutrition: Feeding tube removed again on 11/21, taking PO well. Plan: Continue EVD management per NS, hopefully will clamp 915 and remove 11/25. Hydralazine PRN hypertension. Encourage PO, activity. Low stim measures during the day, but liberalizing as she improves. 11/22/17 09:50 Subjective: Feels good, slept well, minimal pain. Appetite improved. Objective: Vital Signs Temp Pulse Resp BP Pulse Ox 36.3 C 83 12 117/87 H 92 11/22/17 08:00 11/22/17 09:00 11/22/17 09:00 11/22/17 09:00 11/22/17 09:00 Laboratory Results 11/15/17 10:45 11/22/17 05:30 11/21/17 11/22/17 11/23/17 05:59 05:59 05:59 Intake Total 1870 1150 Output Total 8405 2764 Balance 101 -1487 PT 12.8 SEC (12.0-15.0) 11/08/17 18:55 INR 0.94 (0.83-1.16) 11/08/17 18:55 Physical Exam - Physical Exam General Appearance: alert EENT: normal ENT inspection Neck: normal inspection Respiratory: chest non-tender, lungs clear Cardiac/Chest: regular rate, rhythm, edema Abdomen: normal bowel sounds, non-tender Skin: warm/dry Extremities: normal inspection Neuro/Psych: alert, normal mood/affect, oriented x 3 ICD10 Worksheet Patient Problems: Problems Problem Status Onset Brain tumor Acute
[2017-11-22] MEDS: ACETAMINOPHEN 650 MG/20.3 ML UDCUP TUBE PRN (17:58)
[2017-11-22] MEDS: traMADol 50 MG TAB PO PRN (19:25)
[2017-11-22] MEDS: MELATONIN 3 MG TAB PO SCH (19:25)
[2017-11-23] MEDS: DEXAMETHASONE 4 MG/ML VIAL IVP SCH ×4 (00:15→18:45)
[2017-11-23] MEDS: traMADol 50 MG TAB PO PRN (03:10)
[2017-11-23] MEDS: BREO ELLIPTA IH SCH (08:30)
--- NOTE | 2017-11-23 08:52 | NEUSURGPN ---
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 Neuro improved. - HCT (11/20) : Some blood along the ventric track. continued cerebral swelling - Continue decadron 4q6 -Clamp EVD today - Diet being advanced by LARD BLEACHER - PT/OT/LARD BLEACHER -Q2 hour neuro checks -D/w Dr Livingston -Please notify NS with any change on neuro/motor exam Subjective: doing well, no complaints. No headaches/N/V. States she can't see well out of her left eye since surgery. Objective: NAD Alert, oriented to self, no place or time, aware of situation VSS NARENDRA THOMAS MAEx4, 07/13=, no pronator drift SILT Incision CDI EVD patent. Catheter Insertion Date: 11/12/17 - Physician Discussed Patient with : Miki Neurosurgery Physical Exam - Vitals, I&O, Labs I and O 11/22/17 11/23/17 11/24/17 05:59 05:59 05:59 Intake Total 1150 200 Output Total 2637 720 0 Balance -1487 -520 0 Intake: Oral (ml) 1150 200 Output: Urine (ml) 2625 700 Bedside Commode 2625 700 CSF Drainage Amount 12 20 0 Ventriculostomy 12 20 0 Other: Intake Quantity Yes Sufficient Number of Voids Bedside Commode 1 Toilet 5 Vital Signs Temp Pulse Resp BP Pulse Ox 36.6 C 53 L 12 107/73 94 11/23/17 08:00 11/23/17 08:30 11/23/17 08:30 11/23/17 08:00 11/23/17 08:30 Laboratory Results 11/15/17 10:45 11/23/17 05:30 ICD10 Worksheet Patient Problems: Problems Problem Status Onset Brain tumor Acute
[2017-11-23] MEDS: FAMOTIDINE 20 MG TAB TUBE SCH (10:27)
[2017-11-23] MEDS: BISACODYL 10 MG SUPP PR PRN (10:27)
[2017-11-23] MEDS: CHLORHEXIDINE GLUC HIBICLENS 118 ML BTL TP SCH ×2 (10:27→20:47)
[2017-11-23] MEDS: EPA PO SCH (10:28)
[2017-11-23] MEDS: BACITRACIN OINTMENT 1 PACKET TP SCH ×2 (10:28→20:47)
[2017-11-23] MEDS: OMEGA PO SCH (10:28)
[2017-11-23] MEDS: DHA PO SCH (10:28)
[2017-11-23] MEDS: PHOSPSERIN PO SCH (10:28)
[2017-11-23] MEDS ORDERED: LACTULOSE 20 GM/30 ML UDCUP PO PRN (11:00)
[2017-11-23] MEDS ORDERED: MAGNESIUM HYDROXIDE 30 ML UDCUP PO PRN (11:00)
--- NOTE | 2017-11-23 11:30 | PDINTPN ---
Environmental Technician Progress Note Assessment/Plan: Assessment: 67 F with well controlled asthma presented with ataxia and found to have cerebellar mass. She underwent craniotomy and resection 11/12 without complications. 4 mm exophytic renal cystic lesion was also noted on an abdominal CT. * Cerebellar mass- path consistent with hemangioblastoma. EVD placed 11/14 with subsequent improvement in mental status to sitting up and following commands. Neuro continues to improve. BP creeping back up but only using prn hydralazine for now. EVD clamped this morning. * Hypoxia- CXR 11/15 when O2 requirements increased to 15 lpm shows stable LLL atelectasis. Now improved, sats OK on RA, not needing nebs. * asthma - currently stable on prn albuterol alone. * Renal cyst- unclear if related to cerebellar mass, though fpu-Whwgkk-Nheotw is associated with both renal cysts and renal cell carcinoma. Dr. Montejo's last note seemed to agree with radiology that the renal cyst was likely benign. Would favor recovery from craniotomy before further investigation, eg needle biopsy, but defer to oncology as outpatient. Genetic mutation sent. There are no designated [facility] care centers in [place]. https://www.vhl.org/about/resources/ vujkocdl-alqg-ouoiknx-directory/oi-owmkfcnoefgqk-nueaeynq-care-centers/ is a resource that lists them, with the closest being [facility] or [facility]. * RA- no therapy directed at this at the moment but is on dexamethasone * Hx TBI from [facility] 25 yrs ago * Nutrition: Feeding tube removed again on 11/21, taking PO well. Plan: Keep EVD clamped as long as she does well, remove 11/25 and can be discharged. Hydralazine PRN hypertension. Encourage PO, activity. Low stim measures during the day, but liberalizing as she improves. 11/23/17 11:28 Subjective: Feels better, appetite good, denies pain. Thinks she slept well. Objective: Vital Signs Temp Pulse Resp BP Pulse Ox 36.6 C 53 L 12 107/73 94 11/23/17 08:00 11/23/17 08:30 11/23/17 08:30 11/23/17 08:00 11/23/17 08:30 Laboratory Results 11/15/17 10:45 11/23/17 05:30 11/22/17 11/23/1711/24/18 05:59 05:59 05:59 Intake Total 1150 200 500 Output Total 7714 976 625 Balance -1487 -520 -125 PT 12.8 SEC (12.0-15.0) 11/08/17 18:55 INR 0.94 (0.83-1.16) 11/08/17 18:55 Physical Exam - Physical Exam General Appearance: alert, no apparent distress EENT: normal ENT inspection Neck: normal inspection Respiratory: lungs clear, normal breath sounds Cardiac/Chest: regular rate, rhythm, No edema Abdomen: normal bowel sounds, non-tender Skin: normal color, warm/dry Extremities: normal inspection Neuro/Psych: alert, normal mood/affect, oriented x 3 ICD10 Worksheet Patient Problems: Problems Problem Status Onset Brain tumor Acute
[2017-11-23] MEDS: SENNOSIDES 17.6 MG/10 ML UDL PO SCH (14:49)
[2017-11-23] MEDS: SENNOSIDES/DOCUSATE SODIUM TAB PO SCH (20:46)
[2017-11-23] MEDS: MELATONIN 3 MG TAB PO SCH (20:46)
[2017-11-23] MEDS: FAMOTIDINE 20 MG TAB PO SCH (20:46)
[2017-11-24] MEDS: DEXAMETHASONE 4 MG/ML VIAL IVP SCH ×5 (00:38→23:53)
[2017-11-24] MEDS: BREO ELLIPTA IH SCH (08:27)
[2017-11-24] MEDS: FAMOTIDINE 20 MG TAB PO SCH ×2 (08:57→20:12)
[2017-11-24] MEDS: SENNOSIDES/DOCUSATE SODIUM TAB PO SCH ×2 (08:57→20:12)
[2017-11-24] MEDS: CHLORHEXIDINE GLUC HIBICLENS 118 ML BTL TP SCH ×2 (08:58→20:13)
[2017-11-24] MEDS: BACITRACIN OINTMENT 1 PACKET TP SCH ×2 (08:58→20:13)
[2017-11-24] MEDS: EPA PO SCH (09:03)
[2017-11-24] MEDS: PHOSPSERIN PO SCH (09:03)
[2017-11-24] MEDS: OMEGA PO SCH (09:03)
[2017-11-24] MEDS: DHA PO SCH (09:03)
--- NOTE | 2017-11-24 09:45 | NEUSURGPN ---
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 Neuro stable HCT (11/20) : Some blood along the ventric track. continued cerebral swelling - Continue decadron, will start slow wean, 3mg q6h -continue Clamped EVD today, plan to remove tomorrow if continues to do well - Diet being advanced by TOOL GRINDER OPERATOR EXTERNAL - PT/OT/TOOL GRINDER OPERATOR EXTERNAL -Q2 hour neuro checks -D/w Dr Livingston -Please notify NS with any change on neuro/motor exam Subjective: doing well this am, resting, mild headache but not other complaints. Objective: NAD Alert, oriented to self, no place or time, mild confusion toward situation VSS EOMI, PEARLA speech clear, some word finding difficulty MAEx4, 5/5=, no pronator drift SILT Incision CDI EVD clamped. Catheter Insertion Date: 11/12/17 - Physician Discussed Patient with : M[facility] Neurosurgery Physical Exam - Vitals, I&O, Labs I and O 11/23/17 11/24/17 11/25/17 05:59 05:59 05:59 Intake Total 200 1700 Output Total 720 1225 Balance -520 475 Intake: Oral (ml) 200 1700 Output: Urine (ml) 700 1225 Bedside Commode 700 1225 CSF Drainage Amount 20 0 Ventriculostomy 20 0 Other: Intake Quantity Yes Sufficient Number of Voids Bedside Commode 1 Toilet 5 1 Number of Stools Toilet 1 Vital Signs Temp Pulse Resp BP Pulse Ox 36.7 C 58 L 14 99/74 L 97 11/24/17 04:00 11/24/17 08:27 11/24/17 08:27 11/24/17 08:00 11/24/17 08:27 Laboratory Results 11/15/17 10:45 11/24/17 05:15 ICD10 Worksheet Patient Problems: Problems Problem Status Onset Brain tumor Acute
--- NOTE | 2017-11-24 11:17 | PDINTPN ---
Skiver Machine Progress Note Assessment/Plan: Assessment: 67 F with well controlled asthma presented with ataxia and found to have cerebellar mass. She underwent craniotomy and resection 11/12 without complications. 4 mm exophytic renal cystic lesion was also noted on an abdominal CT. * Cerebellar mass- path consistent with hemangioblastoma. EVD placed 11/14 with subsequent improvement in mental status to sitting up and following commands. Neuro continues to improve. BP creeping back up but only using prn hydralazine for now. EVD clamped 11/23. * Hypoxia- CXR 11/15 when O2 requirements increased to 15 lpm shows stable LLL atelectasis. Now improved, sats OK on RA, not needing nebs. * asthma - currently stable on prn albuterol alone. * Renal cyst- unclear if related to cerebellar mass, though srp-Caucjd-Nfeydp is associated with both renal cysts and renal cell carcinoma. Dr. Montejo's last note seemed to agree with radiology that the renal cyst was likely benign. Would favor recovery from craniotomy before further investigation, eg needle biopsy, but defer to oncology as outpatient. Genetic mutation sent. There are no designated [facility] care centers in [place]. https://www.vhl.org/about/resources/ owrvieuv-sdgr-tdjkiqe-directory/hh-jnwbrlswbhnae-unhlfpdz-care-centers/ is a resource that lists them, with the closest being [facility] or [facility]. * RA- no therapy directed at this at the moment but is on dexamethasone * Hx TBI from [facility] 25 yrs ago * Nutrition: Feeding tube removed again on 11/21, taking PO well. Plan: Keep EVD clamped as long as she does well, remove 11/25 and can be discharged. Hydralazine PRN hypertension. Encourage PO, activity. Low stim measures during the day, but liberalizing as she improves. Recheck labs 11/24/17 11:16 Subjective: Feels OK, slept well. Pain controlled. Objective: Vital Signs Temp Pulse Resp BP Pulse Ox 36.4 C 86 16 104/80 93 11/24/17 10:00 11/24/17 10:00 11/24/17 10:00 11/24/17 10:00 11/24/17 10:00 Laboratory Results 11/15/17 10:45 11/24/17 05:15 11/23/17 11/24/17 11/25/17 05:59 05:59 05:59 Intake Total 200 1700 Output Total 720 1225 Balance -520 475 PT 12.8 SEC (12.0-15.0) 11/08/17 18:55 INR 0.94 (0.83-1.16) 11/08/17 18:55 Physical Exam - Physical Exam General Appearance: alert, no apparent distress EENT: pharynx normal Neck: normal inspection Respiratory: lungs clear, normal breath sounds Cardiac/Chest: regular rate, rhythm, No edema Abdomen: normal bowel sounds, non-tender Skin: normal color, warm/dry Extremities: normal inspection Neuro/Psych: alert, normal mood/affect, oriented x 3 ICD10 Worksheet Patient Problems: Problems Problem Status Onset Brain tumor Acute
[2017-11-24 11:55] LABS: PLATELET COUNT 278 10^3/uL (150-400)
[2017-11-24] MEDS: MELATONIN 3 MG TAB PO SCH (20:13)
[2017-11-25] MEDS: DEXAMETHASONE 4 MG/ML VIAL IVP SCH ×2 (05:43→13:42)
[2017-11-25] MEDS: SENNOSIDES/DOCUSATE SODIUM TAB PO SCH ×2 (07:24→20:56)
[2017-11-25] MEDS: BACITRACIN OINTMENT 1 PACKET TP SCH ×2 (07:24→20:55)
[2017-11-25] MEDS: traMADol 50 MG TAB PO PRN (07:24)
[2017-11-25] MEDS: FAMOTIDINE 20 MG TAB PO SCH ×2 (07:24→20:56)
[2017-11-25] MEDS: CHLORHEXIDINE GLUC HIBICLENS 118 ML BTL TP SCH ×2 (07:25→20:56)
[2017-11-25] MEDS: PHOSPSERIN PO SCH (07:31)
[2017-11-25] MEDS: EPA PO SCH (07:31)
[2017-11-25] MEDS: OMEGA PO SCH (07:31)
[2017-11-25] MEDS: ESTRADIOL VIVELLE 0.025 MG PATCH TD SCH (07:31)
[2017-11-25] MEDS: DHA PO SCH (07:31)
[2017-11-25] MEDS: BREO ELLIPTA IH SCH (09:46)
--- NOTE | 2017-11-25 09:48 | NEUSURGPN ---
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 2-0 Silk suture used for closer -Neuro: Morning interactive and following commands - HCT (11/25) : stable - Continue decadron 4q6 - PT/OT/ASSISTANT REAL ESTATE MANAGER -Discussed with Dr. Livingston and Dr. Jordan -Please notify NS with any change on neuro/motor exam Subjective: Mild headache Objective: NAD Alert, oriented to self EOMI, PEARLA speech clear, some word finding difficulty MAEx4, 5/5=, no pronator drift Incision CDI. Catheter Insertion Date: 11/12/17 - Physician Discussed Patient with : [facility] Neurosurgery Physical Exam - Vitals, I&O, Labs I and O 11/24/17 11/25/17 11/26/17 05:59 05:59 05:59 Intake Total 1700 1100 Output Total 1225 250 Balance 475 850 Weight 58.2 kg Intake: Oral (ml) 1700 1100 Output: Urine (ml) 1225 250 Bedside Commode 1225 250 CSF Drainage Amount 0 Ventriculostomy 0 Other: Number of Voids Bedside Commode 1 1 Toilet 1 1 Number of Stools Toilet 1 0 Vital Signs Temp Pulse Resp BP Pulse Ox 35.9 C L 72 19 121/78 H 95 11/25/17 04:00 11/25/17 06:00 11/25/17 06:00 11/25/17 06:00 11/25/17 06:00 Laboratory Results 11/24/17 11:30 11/24/17 11:30 ICD10 Worksheet Patient Problems: Problems Problem Status Onset Brain tumor Acute
--- NOTE | 2017-11-25 14:25 | PDINTPN ---
Timber Framer Progress Note Assessment/Plan: Assessment: 67 F with well controlled asthma presented with ataxia and found to have cerebellar mass. She underwent craniotomy and resection 11/12 without complications. 4 cm exophytic renal cystic lesion was also noted on an abdominal CT. * Cerebellar mass- path consistent with hemangioblastoma. EVD placed 11/14 with subsequent improvement in mental status to sitting up and following commands. Neuro continues to improve. EVD clamped 11/23, removed earlier today. * Hypoxia- Resolved. * Asthma - currently stable on prn albuterol alone. * Renal cyst- unclear if related to cerebellar mass, though yud-Xszpxz-Yvukll is associated with both renal cysts and renal cell carcinoma. Dr. Montejo's last note seemed to agree with radiology that the renal cyst was likely benign. Would favor recovery from craniotomy before further investigation, eg needle biopsy, but defer to oncology as outpatient. Genetic mutation sent. There are no designated [facility] care centers in [place]. https://www.vhl.org/about/resources/ hpwsidrs-traz-ikfntkv-directory/qc-phrgwrrlzqdkh-dcvmekip-care-centers/ is a resource that lists them, with the closest being [facility] or [facility]. * Hypertension: Resolved, off p.r.n. Hydralazine * RA- no therapy directed at this at the moment but is on dexamethasone postoperatively * Hx TBI from [facility] 25 yrs ago * Nutrition: Feeding tube removed on 11/21, taking PO well. Plan: Continue care in the intensive care unit for now. Possibly can move to a medical-surgical neurology bed today or tomorrow versus possibly home tomorrow ? Continue to follow neurologic status. Encourage PO, activity. Low stim measures during the day, but liberalizing as she improves. Follow laboratory. 25 min of critical care time spent with the patient. Discussed with nursing, neuro surgery, and the ICU multi disciplinary team. Subjective: Complains of some persistent headache. Denies nausea, vomiting Objective: Vital Signs Temp Pulse Resp BP Pulse Ox 36.6 C 76 14 95/73 L 93 11/25/17 12:00 11/25/17 12:00 11/25/17 12:00 11/25/17 12:00 11/25/17 12:00 Laboratory Results 11/24/17 11:30 11/24/17 11:30 11/24/17 11/25/17 11/26/17 05:59 05:59 05:59 Intake Total 1700 1100 Output Total 1225 250 Balance 475 850 PT 12.8 SEC (12.0-15.0) 11/08/17 18:55 INR 0.94 (0.83-1.16) 11/08/17 18:55 Laboratory Tests 11/15/17 11/24/17 01:44 11:30 pCO2 31 L pO2 81 H Total CO2 23 ABG O2 Saturation 96 H Calcium 9.0 Total Bilirubin 0.7 AST 22 ALT 37 Albumin 3.5 Physical Exam - Physical Exam General Appearance: alert, no apparent distress, moderate distress EENT: other (On room air) Neck: normal inspection (No JVD) Respiratory: lungs clear, No rales, No rhonchi, No wheezing Cardiac/Chest: regular rate, rhythm Abdomen: normal bowel sounds, non-tender, soft Skin: normal color, warm/dry Extremities: No pedal edema Neuro/Psych: no motor/sensory deficits (Moves all extremities equally), cognition abnormalities (Word-finding problems still present) ICD10 Worksheet Patient Problems: Problems Problem Status Onset Brain tumor Acute
[2017-11-25] MEDS ORDERED: *MD ORDERING ONLY-DEXAMETHASONE TAPER IVP/PO SCH (15:45)
--- NOTE | 2017-11-25 16:20 | ASMTCMCOM ---
CM Note CM Note Notes: Spoke with Pascual, patient's partner, about possible admit to [facility]-pt Rehab Saturday and what he might pack for her. He reports that she tires easily and that just getting her transported to Rehab will be a big effort on her part. Date Signed: 11/25/2017 04:20 PM Electronically Signed By:Agustina Kirkland LCSW
[2017-11-25] MEDS: ACETAMINOPHEN 325 MG TAB PO PRN (18:18)
[2017-11-25] MEDS: MELATONIN 3 MG TAB PO SCH (20:56)
[2017-11-26] MEDS: ACETAMINOPHEN 325 MG TAB PO PRN ×2 (06:12→12:34)
[2017-11-26] MEDS: DEXAMETHASONE 2 MG TAB PO SCH ×2 (06:12→12:33)
--- NOTE | 2017-11-26 07:51 | PDIAF ---
- Diagnosis Code Status: Full Code - Medication Management Discharge Medications: Medications to Continue on Transfer Breo Ellipta 100-25 Mcg INH 1 puffs IH DAILY 11/08/17 [Last Taken Unknown] Estradiol [Vivelle-Dot 0.025MG (*)] 0.025 mg TD MoTh@0800 11/08/17 [Last Taken 11/07/17] Phospserin/Madison-3/Dha/Epa [Vayarin Capsule] 1 each PO DAILY 11/08/17 [Last Taken 11/07/17] Acetaminophen [Tylenol 325mg (*)] 650 mg PO Q6 PRN tab 11/26/17 [Last Taken Unknown] Albuterol [Proventil Inhaler HFA (*)] 2 puffs IH Q4HRS PRN mdi 11/26/17 [Last Taken Unknown] Albuterol [Proventil Neb] 3 ml IH QID PRN deyvial 11/26/17 [Last Taken Unknown] Dexamethasone [Decadron 2 MG (*)] 1 mg PO DAILY tab 11/26/17 [Last Taken Unknown] Dexamethasone [Decadron 2 MG (*)] 1 mg PO Q12 tab 11/26/17 [Last Taken Unknown] Dexamethasone [Decadron 2 MG (*)] 2 mg PO Q12 tab 11/26/17 [Last Taken Unknown] Dexamethasone [Decadron 2 MG (*)] 3 mg PO Q12 tab 11/26/17 [Last Taken Unknown] Dexamethasone [Decadron 2 MG (*)] 3 mg PO Q8 tab 11/26/17 [Last Taken Unknown] Famotidine [Pepcid 20 MG (*)] 20 mg PO BID tab 11/26/17 [Last Taken Unknown] Melatonin [Melatonin 3 MG (*)] 1.5 mg PO HS tab 11/26/17 [Last Taken Unknown] Tears/Dextran 70/Hypromellose [Natural Balance Tears (*)] 1 drop EACHEYE PRN PRN opht.btl 11/26/17 [Last Taken Unknown] oxyCODONE/APAP 5/325 [Percocet 5/325 (*)] 1 - 2 tab PO Q4HRS PRN tab 11/26/17 [ Last Taken Unknown] traMADol [Ultram 50 mg (*)] 50 mg PO Q6HRS PRN tab 11/26/17 [Last Taken Unknown ] Discharge Medications: Refer to the Discharge Home Medication list for PRN reason. - Orders Services needed: Registered Nurse, Physical Therapy, Occupational Therapy Diet Recommendation: no restrictions on diet Diet Texture: Regular Texture Diet, Thin Liquids, Meds Crushed in Puree - Follow Up Care Current Providers and Referrals: Haroon Silva MD [Primary Care Provider] - As per Instructions
--- NOTE | 2017-11-26 07:53 | NEUSURGPN ---
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 Livingston -Okay to transfer to [facility] this morning -Incisional sutures removed -Please notify NS with any change on neuro/motor exam Subjective: Mild headache Objective: NAD Alert, oriented to self EOMI, PEARLA speech clear, some word finding difficulty MAEx4, 5/5=, no pronator drift Incision CDI. Catheter Insertion Date: 11/12/17 - Physician Patient Seen by : [facility] Physical Exam - Vitals, I&O, Labs I and O 11/25/17 11/26/17 11/27/17 05:59 05:59 05:59 Intake Total 1100 750 Output Total 250 Balance 850 750 Weight 58.2 kg Intake: Oral (ml) 1100 750 Output: Urine (ml) 250 Bedside Commode 250 Other: Number of Voids Bedside Commode 1 1 Toilet 1 Number of Stools Toilet 0 Vital Signs Temp Pulse Resp BP Pulse Ox 36.6 C 56 L 18 101/73 94 11/25/17 20:00 11/26/17 04:00 11/26/17 04:00 11/26/17 04:00 11/26/17 04:00 Laboratory Results 11/24/17 11:30 11/24/17 11:30 ICD10 Worksheet Patient Problems: Problems Problem Status Onset Brain tumor Acute
[2017-11-26 08:07] VITALS: BP 84/68
[2017-11-26] MEDS: BREO ELLIPTA IH SCH (09:14)
[2017-11-26] MEDS: BACITRACIN OINTMENT 1 PACKET TP SCH (09:34)
[2017-11-26] MEDS: FAMOTIDINE 20 MG TAB PO SCH (09:35)
[2017-11-26] MEDS: SENNOSIDES/DOCUSATE SODIUM TAB PO SCH (09:35)
[2017-11-26] MEDS: CHLORHEXIDINE GLUC HIBICLENS 118 ML BTL TP SCH (09:35)
[2017-11-26] MEDS: EPA PO SCH (09:37)
[2017-11-26] MEDS: OMEGA PO SCH (09:37)
[2017-11-26] MEDS: PHOSPSERIN PO SCH (09:37)
[2017-11-26] MEDS: DHA PO SCH (09:37)
--- NOTE | 2017-11-26 13:08 | PDINTPN ---
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 She underwent craniotomy and resection 11/12 without complications. 4 cm exophytic renal cystic lesion was also noted on an abdominal CT. * Cerebellar mass- path consistent with hemangioblastoma. EVD placed 11/14 with subsequent improvement in mental status to sitting up and following commands. Neuro continues to improve. EVD clamped 11/23, removed11/24. * Hypoxia- Resolved. * Asthma - currently stable on prn albuterol alone. * Renal cyst- unclear if related to cerebellar mass, though vrl-Xplehg-Hojdaj is associated with both renal cysts and renal cell carcinoma. Dr. Montejo's last note seemed to agree with radiology that the renal cyst was likely benign. Would favor recovery from craniotomy before further investigation, eg needle biopsy, but defer to oncology as outpatient. Genetic mutation sent. There are no designated [facility] care centers in [place]. https://www.[facility].org/about/resources/ zmuyzutv-conu-cryulmb-directory/ct-nwmnrdfzkszqg-ridsmnbm-care-centers/ is a resource that lists them, with the closest being [place] or [facility]. 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 Plan: Will DC PICC line in IV medications. Okay to transfer to inpatient rehabilitation today. 20 min critical care time spent directly with the patient. Transfer discussed. The patient is anxious to get to rehab. Discussed with nursing and the ICU multi disciplinary team. Subjective: Doing okay. Headache is better, mild. Word finding problems persist. Denies significant extremity weakness. Objective: Vital Signs Temp Pulse Resp BP Pulse Ox 36.8 C 100 22 H 84/68 L 96 11/26/17 08:00 11/26/17 09:14 11/26/17 09:14 11/26/17 08:00 11/26/17 09:14 Laboratory Results 11/24/17 11:30 11/24/17 11:30 11/25/17 11/26/17 11/27/17 05:59 05:59 05:59 Intake Total 1100 750 Output Total 250 Balance 850 750 PT 12.8 SEC (12.0-15.0) 11/08/17 18:55 INR 0.94 (0.83-1.16) 11/08/17 18:55 Physical Exam - Physical Exam General Appearance: alert, no apparent distress EENT: PERRL/EOMI, other (On room air, 96%) Neck: normal inspection (No JVD) Respiratory: lungs clear Cardiac/Chest: regular rate, rhythm Abdomen: normal bowel sounds, non-tender, soft Skin: normal color, warm/dry Extremities: No pedal edema Neuro/Psych: no motor/sensory deficits, cognition abnormalities (Word-finding issues, query some confusion) ICD10 Worksheet Patient Problems: Problems Problem Status Onset Brain tumor Acute
--- NOTE | 2017-11-26 15:24 | ASMTDCNOTE ---
Case Management Discharge Discharge Order Complete? Answers: Yes Patient to Obtain Answers: Other Notes: [facility] In-pt Rehab Medications Transportation Arranged Answers: RAMON W/C Transport will Pick (Date 11/26/2017 01:30 PM & Time) Case Management Transport Answers: Yes Form Complete Faxed Final Orders Answers: Yes Family Notified Answers: Yes Notes: Pascual present Discharge Comments Notes: Patient has been discharged to [facility] In-pt Rehab Date Signed: 11/26/2017 03:23 PM Electronically Signed By:Agustina Kirkland LCSW
--- NOTE | 2017-11-26 15:25 | ASMTLACE ---
LACE Length of stay for Answers: 14 days or more current admission Acuity / Level of Answers: Yes Care: Did the patient have an inpatient admission? Comorbidities - select Answers: Any tumor (including all that apply lymphoma or leukemia) Other Notes: TBI history # of Emergency department Answers: 1-2 visits in the last 6 months Score: 14 Date Signed: 11/26/2017 03:24 PM Electronically Signed By:Agustina Kirkland LCSW
--- NOTE | 2017-11-26 15:28 | ASDISCHSUM ---
Discharge Information Plan Status:Inpatient Rehab Medically Cleared to Leave:11/26/2017 Discharge Date:11/26/2017 12:52 PM CM D/C Disposition:[facility] Acute ADT D/C Disposition:[facility] IP Projected Discharge Date:11/26/2017 01:00 PM Transportation at D/C:Wheelchair Van Discharge Delay Reason: Follow-Up Date:11/26/2017 01:00 PM Discharge Slot: Final Diagnosis:Brain Tumor Placement Information Referral Type:Rehabilitation Hospital Referral ID:[id number] Provider Name:[facility] Address 1:[address] Phone Number: Address 2: Fax Number: City:[place] Selection Factors: State:[place] Patient Contact Information Contact Name:JAUN Relationship:Life Partner Address:[address] City:[place] Alternate Phone: State/Zip Code:[place] [address] Email: Financial Information Financial Class:Medicare Primary Plan Desc:MEDICARE INPATIENT Primary Plan Number:[id number] Secondary Plan Desc:[employer]/MDR SUPPLEMENT Secondary Plan Number:[id number] Assessment Information LACE LACE Length of stay for Answers: 14 days or more current admission Acuity / Level of Answers: Yes Care: Did the patient have an inpatient admission? Comorbidities - select Answers: Any tumor (including all that apply lymphoma or leukemia) Other Notes: TBI history # of Emergency department Answers: 1-2 visits in the last 6 months Score: 14 Date Signed: 11/26/2017 03:24 PM Electronically Signed By:Agustina Kirkland LCSW [facility] Initial CM Assessment Living Arrangements What is your living Answers: With Partner arrangement? Who do you live with? Type Of Residence What kind of residence do Answers: House you live in? Discharge Plan Comments Coordination Status Comments Notes: Patient is a 67yo female who has been generally healthy but recently developed headaches, balance difficulties, and intermittant vision impairment in her left eye. Patient had an MRI done which showed a brain mass. Patient has been admitted for surgery. OT/PT/ACCOUNTING MACHINE OPERATOR have been ordered. D/C plan TBD. CM will follow. Date Signed: 11/09/2017 09:58 AM Electronically Signed By:Kaylah Nicole LCSW [facility] Progress Note CM Note CM Note Notes: CM spoke to DENNIS Omer about this case. CM wrote an airline excuse letter and provided it to pt. Pt will have brain surgery tomorrow. Therapies are recommending inpatient rehab. CM contacted Dr. Briggs and he will put in the rehab consult. CM to follow up after surgery. Plan: TBD Date Signed: 11/11/2017 04:21 PM Electronically Signed By:CHRIS Szymanski [facility] CM Progress Note CM Note WADE Note Notes: Chart reviewed. Patient discussed in rounds. She may need additional neurological interventions . Therapies currently on hold. CM to follow. Plan: TBD Date Signed: 11/14/2017 11:21 AM Electronically Signed By:Hui Diaz RN [facility] CM Progress Note CM Note CM Note Notes: Discussed in ICU rounds. Clinically improving today working with therapies. Plan is for disposition to inpatient therapy when medically cleared for discharge. Spoke with Karine Chan and patient looks to be appropriate for rehab. CM to follow. Plan: Dc to inpatient rehab when medically cleared for discharge. Date Signed: 11/15/2017 02:01 PM Electronically Signed By:Hui Diaz RN [facility] CM Progress Note CM Note CM Note Notes: Met with patient's sister, Kaylyn in "Family Meeting"- See "Family Meeting" Notes. Kaylyn and Haroon- patient's partner are her MPOA's. Kaylyn is interested in what's best for her sister's Rehab and would like to visit [facility] In-pt Rehab as well as [facility]. Gave her [facility] brochure and left message for Karine for a possible tour. Will send referrals to both facilities. Date Signed: 11/18/2017 02:18 PM Electronically Signed By:Agustina Kirkland LCSW [facility] CM Progress Note CM Note CM Note Notes: [facility] called this CM to say that they did not admit patient's with medical brain injuries. Spoke to patient's sister and patient's partner, they would like to her to be admitted to [facility] In-pt Rehab. Sister would like to talk with Dr Montejo. Contacted his office. Date Signed: 11/19/2017 03:07 PM Electronically Signed By:Agustina Kirkland LCSW [facility] CM Progress Note CM Note CM Note Notes: Spoke with patient's sister, Kaylyn and partner, Haroon yesterday and they are both supportive of patient going for inpatient rehab when she is medically stable. Spoke with Karine who states patient has been accepted into the program and she is monitoring her progress as she remians in the ICU. Patient will most likely be ready for discharge in the next couple of days. CM will follow. Date Signed: 11/22/2017 09:13 AM Electronically Signed By:Kaylah Nicole LCSW [facility] CM Progress Note CM Note CM Note Notes: Spoke with Pascual, patient's partner, about possible admit to [facility]-pt Rehab Saturday and what he might pack for her. He reports that she tires easily and that just getting her transported to Rehab will be a big effort on her part. Date Signed: 11/25/2017 04:20 PM Electronically Signed By:Agustina Kirkland LCSW Case Management Discharge Plan Note Case Management Discharge Discharge Order Complete? Answers: Yes Patient to Obtain Answers: Other Notes: [facility] In-pt Rehab Medications Transportation Arranged Answers: RAMON Hoff Transport will Pick (Date 11/26/2017 01:30 PM & Time) Case Management Transport Answers: Yes Form Complete Faxed Final Orders Answers: Yes Family Notified Answers: Yes Notes: Pascual dailey Discharge Comments Notes: Patient has been discharged to [facility] In-pt Rehab Date Signed: 11/26/2017 03:23 PM Electronically Signed By:Agustina Kirkland LCSW Intervention Information
[2017-11-28] MEDS ORDERED: DEXAMETHASONE 2 MG TAB PO SCH (09:00)
--- NOTE | 2017-11-28 09:11 | GDS ---
ADMISSION DIAGNOSES: 1. Large cerebellar mass with mass effect on the 4th ventricle. 2. Imbalance. 3. Visual disturbances. 4. Intermittent headaches. DISCHARGE DIAGNOSES: 1. Large cerebellar mass. 2. Hydrocephalus. 3. Cerebellar edema. 4. Intermittent encephalopathy. 5. Imbalance. 6. Visual changes. 7. Headaches. 8. Dysphagia. PROCEDURES: 1. Right extreme lateral supercerebellar infratentorial approach to the right vermian mass with Stealth stereotactic neuronavigation for gross total resection of cerebellar tumor by Dr. Jonatan Livingston and Dr. Marcin Quinones on 06/2017 2. External ventricular device for on 11/14/2017 HOSPITAL COURSE/HISTORY/MAJOR MEDICAL FINDINGS: The patient is a 67-year-old female who presented to [facility] Emergency Room on 11/08/2017, after undergoing an abnormal MRI as an outpatient. She obtained this because she had about 3 months of intermittent headaches, imbalance, and visual changes. These were intermittent. She does have history of a TBI many years ago, but notes that this has been much worse. The MRI demonstrated a large cerebellar mass that is predominantly cystic with some effacement of the 4th ventricle without hydrocephalus. Based on this, she was taken to the operating room by Dr. Jonatan Livingston and Dr. Marcin Quinones on 06/2017, for right extreme lateral supercerebellar infratentorial approach to the right vermian mass with Stealth stereotactic neuronavigation for gross total resection of cerebellar tumor. The patient tolerated this procedure well. For full operative details, please see Dr. Livingston's and Dr. Marcin Quinones' s operative note in the EMR system. Postoperatively, the patient was transferred to the ICU. While in the ICU, she remained somewhat somnolent and not completely verbal postsurgery. Given her continued somnolence, her MRI post-surgery did demonstrate some cerebellar edema , as well as increased compression of the 4th ventricle. She did undergo placement of an external ventricular device for her developing hydrocephalus on 11/14/2017. She was placed on Decadron, as well as 3% mannitol. She had an NG tube placed to assist with tube feeds given her dysphagia and inability to swallow. Her EVD was successfully weaned and removed without complication on 11/26/2017. Formal pathology of her mass came back as a vermian hemangioblastoma. Her diet was able to be advanced and the NG tube was removed prior to discharge. Her PICC line was removed prior to discharge. While she was in the hospital, she continued to see Physical therapy, Occupational therapy and Speech Therapy. She was also seen by the spanish teacher daily for her ongoing issues, which include hypoxia with a stable left lower lobe atelectasis. She was found to have a renal cyst, which was evaluated by Dr. Montejo who thought that the renal cyst was likely benign. She has a history of RA as well that they followed her for. Patient was successfully cleared by therapies and the spanish teacher and Medicine and deemed fit for discharge to [facility] on 11/26/2017, in stable condition. DISCHARGE MEDICATIONS: Please see the Mar for full detail. Patient was discharged on a Decadron taper over the next 10 days. She was discharged with [place] 5/325 as needed for pain, albuterol inhaler home medication, Artificial Tears home medication, Tylenol as needed, and tramadol 50 mg 1 p.o. q.6 hours p.r.n. pain. DISCHARGE INSTRUCTIONS: Patient will undergo PT, OT, and CEMENTER MACHINE JOINER over at [facility]. She is to avoid all strenuous and straining activity. She is not to lift anything greater than 5 to 10 pounds. She will follow up with Dr. Livingston or one of his PAs in clinic in approximately 3-4 weeks. Her sutures over her incision were removed the day of discharge. Copy requested to: Selene France MD /[id number]/MODL MTDD
--- NOTE | 2017-11-29 11:32 | POSTANESTH ---
Post Anesthetic Evaluation Cardiovascular Status: Normal, Stable Respiratory Status: Normal, Stable Level of Consciousness/Mental Status: Moderately Sleepy Pain Control: Adequate, Prn Tx Ordered Nausea/Vomiting Control: Adequate, Prn Tx Ordered Complications Possibly Related to Anesthesia: None Noted (Moves all four extremities)
[2017-11-30] MEDS ORDERED: DEXAMETHASONE 2 MG TAB PO SCH (09:00)
[2017-12-02] MEDS ORDERED: DEXAMETHASONE 2 MG TAB PO SCH (09:00)
[2017-12-04] MEDS ORDERED: DEXAMETHASONE 2 MG TAB PO SCH (09:00)
== END 2017-11-26 12:52 | DRG 25 ==
LOC: F2N 21:08
PROVIDERS: ADMIT Internal Medicine; ATTEND Internal Medicine
PROC: 00BC0ZX Excision of Cerebellum, Open Approach, Diagnostic (ICD-10-PCS; principal; 2017-11-12 13:00)
PROC: 009630Z Drainage of Cerebral Ventricle with Drainage Device, Percutaneous Approach (ICD-10-PCS; 2017-11-14)
PROC: 02HV33Z Insertion of Infusion Device into Superior Vena Cava, Percutaneous Approach (ICD-10-PCS; 2017-11-14)
DX: D49.6 Neoplasm of unspecified behavior of brain (principal); G91.4 Hydrocephalus in diseases classified elsewhere; G93.5 Compression of brain; G93.6 Cerebral edema; G93.40 Encephalopathy, unspecified; R13.10 Dysphagia, unspecified; N28.1 Cyst of kidney, acquired; R09.02 Hypoxemia; M06.9 Rheumatoid arthritis, unspecified; J45.909 Unspecified asthma, uncomplicated; Z87.820 Personal history of traumatic brain injury
CPT/HCPCS: 84484-PO; 92507-GN; 92523-GN; 92526-GN; 92610-GN; 92611-GN; 96374; 97110-GP; 97112-GO; 97112-GP; 97116-GP; 97162-GP; 97164-GP; 97166-GO; 97168-GO; 97530-GO; 97530-GP; 97535-GO; A9585; C1713; C1751; G8978-GP-CK; G8978-GP-CM; G8979-GP-CI; G8979-GP-CK; G8987-GO-CL; G8987-GO-CM; G8988-GO-CJ; G8988-GO-CK; G8996-GN-CI; G8996-GN-CM; G8997-GN-CH; G8997-GN-CM; G8998-GN-CI; G8998-GN-CM; G9162-GN-CN; G9163-GN-CJ; J0171; J0330; J0360; J0690; J1100; J1170; J1580; J2150; J2405; J2550; J2704; J3010; J3360; J7608; J7613; Q9967

== ENCOUNTER 2017-11-26 13:22 | Inpatient (IN) | payer OTHER, MEDICARE ==
[2017-11-26] MEDS ORDERED: TEARS/DEXTRAN 70/HYPROMELLOSE 15 ML OPHT.BTL EACHEYE PRN (15:47)
[2017-11-26] MEDS ORDERED: OXYCODONE/APAP 5/325 TAB PO PRN (15:47)
[2017-11-26] MEDS ORDERED: ALBUTEROL 60 PUFFS/8 GM MDI IH PRN (15:47)
[2017-11-26] MEDS ORDERED: traMADol 50 MG TAB PO PRN (15:47)
[2017-11-26] MEDS ORDERED: SENNOSIDES 1 TAB PO PRN (15:51)
--- NOTE | 2017-11-26 16:43 | GHP ---
POST ADMISSION PHYSICIAN EVALUATION AND REHABILITATION TREATMENT PLAN DATE OF ADMISSION: 11/26/2017 DATE OF EVALUATION: 11/26/2017 TIME OF EVALUATION: 1455 REFERRING FACILITY: [facility]. IMPAIRMENT GROUP: 2.1. DATE OF ONSET: 11/08/2017. REFERRING PHYSICIAN: Dr. Briggs. CONSULTING PHYSICIANS: She was seen in consultation by Hematology/Oncology Dr. Montejo, neurosurgeon Dr. Livingston, and Pulmonary/Critical Care Dr. Fowler. 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 ETIOLOGIC DIAGNOSIS: Nontraumatic brain dysfunction. DATE OF SURGERY: 11/12/2017. HISTORY OF PRESENT ILLNESS: This patient had onset of headaches, balance impairment, and visual changes over approximately 3 months. She had several falls due to balance impairment. She had an outpatient MRI done which showed a cerebellar mass. She was then admitted to the hospital. She was started on dexamethasone to reduce edema. She had surgery on 11/12/2017, for resection of the brain mass. 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 Postoperatively, she had hydrocephalus and required a ventriculostomy catheter which was placed through the right frontal skull on 11/14/2017, and subsequently removed on 11/24/2017. She had dysphagia and had a Dobbhoff tube placed on 11/15/2017. Subsequently, she had a normal video fluoroscopic swallow study on 11/21/2017 and dysphagia was resolved. She had issues with pain management, nausea and vomiting. A PICC line was placed for medications and hydration. She was ultimately medically stabilized and appropriate for inpatient rehabilitation. STUDIES AND LABS IN THE HOSPITAL: Most recent head CT on 11/25/2017, showed hydrocephalus which was unchanged from 11/20/2017. There was a right cerebellar hemorrhage with vasogenic edema and a right frontal intraventricular drain catheter in stable position. She had multiple other head CTs and two brain MRI is. Abdominal x-ray on 11/15/2017, showed a feeding tube in the body of the stomach. She had left basilar consolidation. Chest CT on 11/09/2017, prior to surgery showed subtle ground-glass opacification posterior in the right upper lobe and otherwise was normal. Abdominal CT showed the renal cyst on the right kidney and constipation. EKG showed normal sinus rhythm, and probable left atrial enlargement. Hematology showed transient increase of hemoglobin and hematocrit as high as 18 and 53.5 on 11/13/2017. On 11/24/2017, hemoglobin and hematocrit were normal. She had an elevated white blood cell count at 14.36, which was predominantly neutrophils, likely consistent with corticosteroid treatment. She had normal PT and PTT. Serum chemistry showed transient hyponatremia with a sodium of 134 on 11/14/2017. On 11/24/2017, renal function and electrolytes were within normal limits. She had an elevated glucose at 134. She had a slightly low total protein at 6 with a normal albumin at 3.5. Lipase was checked on 11/08/2018 and it was normal at 46. PRECAUTIONS: She is a fall risk. ACTIVE COMORBIDITIES: She has no active tier 1, tier 2 or tier 3 comorbidities. PAST MEDICAL HISTORY: 1. Traumatic brain injury. 2. Asthma. 3. There is a mention of rheumatoid arthritis, but I am not clear on how symptomatic she may have been. PAST SURGICAL HISTORY: She has not had prior surgeries. MEDICATIONS: Prior to admission: 1. Breo Ellipta 100/25 mcg. 2. Estradiol 0.025 mg three times daily transdermal Mondays and . 3. Phosphoserine/Atka 3 capsules 1 p.o. daily. Admission medications: 1. Breo Ellipta 100/25 one puff daily. 2. Estradiol transdermal 0.025 mg Saturday and . 3. Phosphoserine/Atka 3 capsules 1 p.o. daily. 4. Acetaminophen 650 mg p.o. q.6 hours p.r.n. 5. Albuterol metered-dose inhaler 2 puffs q.4 hours p.r.n. 6. Albuterol nebulizer 4 times daily p.r.n. 7. Dexamethasone taper. 8. Famotidine 20 mg p.o. twice daily. 9. Melatonin 1.5 mg p.o. at bedtime. 10. Artificial Tears p.r.n. 11. Oxycodone/acetaminophen 5/325, two tablets p.o. q.4 hours p.r.n. 12. Tramadol 50 mg p.o. q.6 hours p.r.n. ALLERGIES: There is an allergy listed to sulfonamide antibiotics. PSYCHOSOCIAL HISTORY: She is . She lives with her . There is a flight of steps to enter the house. There is a flight of steps that she needs to be able to negotiate once she is in the house. She is a nonsmoker. She uses occasional alcohol. 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 FAMILY HISTORY: Noncontributory. She denies any family history of brain, spinal or kidney tumors. REVIEW OF SYSTEMS: She denies pain. She denies cough or dyspnea. She denies recent weight change. She denies fevers or chills. She has a reduced appetite. She has had constipation. She had some weight gain prior to her admission and it is unclear what may have happened to her weight during her hospital stay. She denies dysuria or urinary frequency. Otherwise, a 10-point review of systems is negative. PHYSICAL EXAMINATION: VITAL SIGNS: Vitals are not yet available in the chart. This morning in the hospital, blood pressure was 84/68, heart rate was 58 and subsequently measured at 100, respiratory rate was 16 and subsequently measured at 22. Oxygen saturation was 96% on room air. Temperature was 36.8 degrees centigrade. Her weight was 58.2 kg for a body mass index of 23.5, and she was weighed yesterday. GENERAL: This is a well-nourished, well-developed woman lying in bed, dressed in a hospital gown, napping, easily awakened, cooperative , and in no acute distress. HEENT: Extraocular movements are intact. Pupils are equal, round, reactive to light. Mucous membranes are moist. Dentition is in good condition. She has an uncrowded airway, Mallampati class 2. NECK: Supple. HEART: There is a regular rate and rhythm with no murmurs, rubs, or gallops. LUNGS: Clear to auscultation bilaterally. ABDOMEN: Soft, nontender , nondistended with normoactive bowel sounds and no hepatosplenomegaly. EXTREMITIES: There is no cyanosis, clubbing, or edema. Radial and dorsalis pedis pulses are 2+ bilaterally. NEUROLOGIC: She is alert and oriented x3. Cranial nerves 2-12 are grossly intact. Regarding motor strength, she has weakness of the biceps on the right upper extremity, approximately 4/5 and of the triceps in the left upper extremity, approximately 4/5. Otherwise, motor strength is 5/5 overall in upper and lower extremities. Deep tendon reflexes are 2+ bilaterally at the biceps and hypoactive at the patella and Achilles tendons. There is no pronator drift. Cerebellar testing is normal with finger- nose on the left and shows past-pointing, slowness, and a wavering path with [id number] testing on the right. CURRENT LEVEL OF FUNCTION: Per the pre-admission screen. Regarding diet, feeding, and swallowing, dysphagia had resolved and she needed setup. Grooming was done with contact guard and voice cues for sequencing and problem solving. Dressing: Upper body required moderate assist seated. Toileting: Needed assistance with clothing management with contact guard and voice cuing. She was continent of bowel and bladder. Bed mobility required minimal assist to contact guard assist. Transfers required minimal assist to contact guard assist. She used a front-wheeled walker or a 4-wheeled walker, seated. Balance , required standby assist to contact guard assist and standing balance required contact guard to minimal assist. Endurance was fair. She ambulated with a front-wheeled walker and contact guard 200 feet with assist to manage the walker and on another occasion, she ambulated 54 feet with front wheeled walker and minimal assist. Communication: She was noted to have severe impairment to communication and severe impairment to cognition. She was considered a fall risk and her activities were sometimes impaired by dizziness. On today's exam, there is no significant change from the preadmission screen. IMPRESSION: This is a 67-year-old woman who had a 3 month gradual onset of headaches, balance impairment and vision changes. She had some falls from balance impairment. She eventually had an MRI scan done as an outpatient, which revealed a cerebellar mass. She came to the hospital and was initially placed on corticosteroids to reduce edema related to the mass. She subsequently underwent craniotomy and excision of a cerebellar hemangioblastoma. Hospital course was subsequently complicated by hydrocephalus for which she required placement of an endoventricular drain. This was removed on 11/25/2017. She had constipation. She had nausea and vomiting. She had dysphagia and had a Dobbhoff feeding tube. However, the dysphagia recovered with a normal video fluoroscopic swallow study on 2017. She has issues regarding communication with possible aphasia and she has cognitive issues. She also has impairments to balance, mobility, and activities of daily living. She is appropriate for inpatient rehabilitation. Her goal is to complete a rehabilitation stay and then return home with her family and friends as well as supportive services. For a safe discharge she will need to achieve independence with eating. She will need to have modified independence for bed mobility, grooming, transfers and dressing. She likely will continue to require close contact guard assist for ambulation with the least restrictive device for household distances. She will need to be able to negotiate 15 steps with close contact guard assist. She will need to be able to follow multiple commands and make her needs known. She will need to have compensatory strategies regarding cognitive impairment. It is likely she will continue to require assistance for meal preparation, household management, and shopping. She will have therapy with physical therapy, occupational therapy, and speech and language pathology for 60 minutes per day for each discipline on 5-7 days of the week. Her expected duration of stay is 14-21 days. It is anticipated that upon that upon discharge, she will continue to benefit from Home Health Services including nursing, DEVELOPMENT MANAGER, nurse's aide, social work, PT , and a brain injury support group. PLAN: 1. Debility with balance impairment, reduced mobility and need for assistance with an ADLs, status post craniotomy on 11/12/2017 and excision of a cerebellar hemangioblastoma. PT and OT to optimize mobility and activities of daily living towards the independent to modified independent level and needing only close contact guard assist for ambulation. 2. Cognitive and communication deficits. Assessment and treatment per Speech and Language Pathology. 3. Hydrocephalus status post endoventricular drain placement and removal. She is on dexamethasone on a taper to reduce brain swelling. She will be monitored closely for any signs or symptoms of recurrent hydrocephalus. 4. Postoperative pain management. Continue medications ordered out of the hospital with acetaminophen, oxycodone/acetaminophen and tramadol. 5. Recent diagnosis of asthma. Continue the Breo Ellipta as well as the p.r.n. albuterol inhaler and nebulizer. She will have incentive spirometry. She will have oxygen as needed. 6. Possible rheumatoid arthritis by history. Appears to be asymptomatic and doubt any exacerbation would be likely while she is on the dexamethasone taper. 7. Renal cyst, likely benign. Any further investigation is postponed until recovery from the craniotomy. Labs have been drawn and sent to determine if she has a genetic mutation consistent with von Hippel-Lindau syndrome. 8. Prophylaxis. She has ambulated more than 200 feet and she does not have hemiparesis. There is not an indication for pharmacologic prophylaxis. She will have sequential compression devices. 9. Followup. Primary care provider is Dr. Haroon Silva in [place], [place]. Will need to have further discussion with the Neurosurgery and Hematology/Oncology services regarding what followup might be indicated. /[id number]/MODL MTDD
[2017-11-26] MEDS ORDERED: ALBUTEROL 3 ML DEYVIAL IH PRN (16:45)
[2017-11-26] MEDS: MELATONIN 3 MG TAB PO SCH (20:11)
[2017-11-26] MEDS: FAMOTIDINE 20 MG TAB PO SCH (20:11)
[2017-11-26] MEDS: FLUTICASONE/SALMETER 250/50MCG DISKUS IH SCH (20:12)
[2017-11-27] MEDS: FAMOTIDINE 20 MG TAB PO SCH ×2 (08:41→21:11)
[2017-11-27] MEDS: Meloxicam [Meloxicam] 15 MG PO SCH (08:49)
[2017-11-27] MEDS: FLUTICASONE/SALMETER 250/50MCG DISKUS IH SCH ×2 (08:50→21:11)
[2017-11-27] MEDS: Fluticasone/Vilanterol [Breo Ellipta 100-25 Mcg Inh] 1 EACH IH SCH (08:50)
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
[2017-11-27] MEDS ORDERED: DEXAMETHASONE 1.5 MG TAB PO SCH (12:45)
[2017-11-27] MEDS: [UNRECOGNIZED DRUG - OTHER] PO SCH (12:59)
[2017-11-27] MEDS: ACETAMINOPHEN 325 MG TAB PO PRN (13:53)
--- NOTE | 2017-11-27 17:22 | PDOREHIP ---
Admission [facility] - Admission - 3 Day Assessment Period Admission Date/Day 1: 11/26/17 Day 2: 11/27/17 Day 3: 11/28/17 - Active Diagnoses Comorbidities and Co-existing Conditions at Admission: 59000. None of the Above - Skin Conditions Unhealed Pressure Ulcer (1 or more/Stage 1 or >)-Admission: 0. No
[2017-11-27] MEDS: MELATONIN 3 MG TAB PO SCH (21:11)
[2017-11-27] MEDS ORDERED: DEXAMETHASONE 1.5 MG TAB PO ONE (22:00)
[2017-11-28] MEDS: DEXAMETHASONE 2 MG TAB PO SCH ×2 (06:13→18:06)
[2017-11-28] MEDS: FAMOTIDINE 20 MG TAB PO SCH ×2 (08:57→21:18)
[2017-11-28] MEDS: FLUTICASONE/SALMETER 250/50MCG DISKUS IH SCH (08:59)
[2017-11-28] MEDS: Fluticasone/Vilanterol [Breo Ellipta 100-25 Mcg Inh] 1 EACH IH SCH (09:00)
[2017-11-28] MEDS: Meloxicam [Meloxicam] 15 MG PO SCH (09:02)
[2017-11-28] MEDS: [UNRECOGNIZED DRUG - OTHER] PO SCH (09:03)
--- NOTE | 2017-11-28 15:37 | SOAPPROG ---
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 * Initial functional independence measure is 52 on 11/28/2017. Minimal assist for bed mobility. Transfers with minimal assist using front wheeled walker. Ambulated 15 ft with minimal to moderate assist using front wheeled walker. Loss of balance with turning. Poor retention of strategies. Grooming and hygiene done standing with cues to initiate and sequence. Upper body dressing needs standby assist, lower body dressing needs contact guard to minimal assist for balance. Bath transfer requires minimal assist and bathing is done with contact guard assist contact guard to minimal assist for toilet transfer and toileting. OT notes right upper extremity ataxia and vertical diplopia. * Continue PT and OT to optimize mobility and activities of daily living towards the independent to modified independent level and needing only close contact guard assist for ambulation. Cognitive and communication deficits. * Deficits to attention, executive function, memory, orientation, problem solving and reasoning. Worse with cognitive fatigue. * 0L0G . * Expressive and receptive aphasia including empty speech and paraphasic errors. * Continue Speech and Language Pathology. Hydrocephalus status post endoventricular drain placement and removal. She is on dexamethasone on a taper to reduce brain swelling. She will be monitored closely for any signs or symptoms of recurrent hydrocephalus. Postoperative pain management. Using meloxicam and acetaminophen. Not using other medications ordered out of the hospital: oxycodone/acetaminophen and tramadol. Constipation. Continue p.r.n. laxatives. Depressed affect. reports no history of depression. Encouraging that she has had a good night's sleep; was not sleeping well in the hospital. Per she does understand need to be in inpatient rehabilitation. Hope for increased understanding and improved mood as her cognitive function improves. No antidepressant indicated for now. Recent diagnosis of asthma. Continue the Breo Ellipta as well as the p.r.n. albuterol inhaler and nebulizer. She will have incentive spirometry. She will have oxygen as needed. Possible rheumatoid arthritis by history. Appears to be asymptomatic and doubt any exacerbation would be likely while she is on the dexamethasone taper. Renal cyst, likely benign. Any further investigation is postponed until recovery from the craniotomy. Labs have been drawn and sent to determine if she has a genetic mutation consistent with von Hippel-Lindau syndrome. Prophylaxis. She has ambulated more than 200 feet in the hospital and she does not have hemiparesis. Has not ambulated further than 15 ft in the past 2 days on inpatient rehabilitation, largely due to fatigue. If ambulation remains very limited, will need to initiate pharmacologic prophylaxis. She will have sequential compression devices. DISPOSITION: Attended staffing, 15 min. 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 Lives with her at home in [place]. It is a multilevel home with stairs that she must negotiate. Cognitive status needs to improve significantly for her to be left alone at all at home, and she needs to be safe on stairs. Set tentative discharge date for 12/19/2017. Followup. Primary care provider is Dr. Haroon Silva in [place], [place]. Will need to have further discussion with the Neurosurgery and Hematology/Oncology services regarding what followup might be indicated 11/28/17 15:27 Subjective: No complaints. Not in pain. No fevers or chills, no cough or dyspnea. Bowels are moving. Objective: Vital Signs Temp Pulse Resp BP Pulse Ox 36.6 C 58 L 14 102/69 93 11/28/17 07:07 11/28/17 07:07 11/28/17 07:07 11/28/17 07:07 11/28/17 07:07 11/27/17 11/28/17 11/29/17 05:59 05:59 05:59 Intake Total 340 870 690 Output Total 800 900 700 Balance -460 -30 -10 - Time Spent With Patient Time Spent With Patient: Greater than 35 min floor time today, including more than 50% of time in coordination of care during staffing meeting, and counseling patient. Physical Exam - Physical Exam General Appearance: WD/WN, alert, no apparent distress Respiratory: normal breath sounds, No crackles, No rhonchi, No wheezing Cardiac/Chest: regular rate, rhythm, No edema, No diastolic murmur, No systolic murmur Skin: normal color, warm/dry Neuro/Psych: alert, normal mood/affect ICD10 Worksheet Patient Problems: Problems Problem Status Onset Brain tumor Acute
[2017-11-28] MEDS: ESTRADIOL VIVELLE 0.025 MG PATCH TD SCH (15:51)
[2017-11-28] MEDS ORDERED: [UNRECOGNIZED DRUG - OTHER] PO SCH (21:00)
[2017-11-28] MEDS: MELATONIN 3 MG TAB PO SCH (21:18)
[2017-11-28] MEDS: [UNRECOGNIZED DRUG - OTHER] PO SCH (21:19)
[2017-11-28] MEDS: OMEGA PO SCH (21:20)
[2017-11-28] MEDS: EPA PO SCH (21:20)
[2017-11-28] MEDS: DHA PO SCH (21:20)
[2017-11-28] MEDS: PHOSPSERIN PO SCH (21:20)
[2017-11-29] MEDS: DEXAMETHASONE 2 MG TAB PO SCH ×2 (05:04→17:52)
[2017-11-29] MEDS: FAMOTIDINE 20 MG TAB PO SCH ×2 (09:03→21:20)
[2017-11-29] MEDS: Meloxicam [Meloxicam] 15 MG PO SCH (09:04)
[2017-11-29] MEDS: DHA PO SCH ×2 (09:06→21:18)
[2017-11-29] MEDS: OMEGA PO SCH ×2 (09:06→21:18)
[2017-11-29] MEDS: EPA PO SCH ×2 (09:06→21:18)
[2017-11-29] MEDS: [UNRECOGNIZED DRUG - OTHER] PO SCH ×2 (09:06→21:19)
[2017-11-29] MEDS: PHOSPSERIN PO SCH ×2 (09:06→21:18)
[2017-11-29] MEDS: Fluticasone/Vilanterol [Breo Ellipta 100-25 Mcg Inh] 1 EACH IH SCH (10:35)
--- NOTE | 2017-11-29 15:25 | SOAPPROG ---
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 * Initial functional independence measure is 52 on 11/28/2017. Minimal assist for bed mobility. Transfers with minimal assist using front wheeled walker. Ambulated 15 ft with minimal to moderate assist using front wheeled walker. Loss of balance with turning. Poor retention of strategies. Grooming and hygiene done standing with cues to initiate and sequence. Upper body dressing needs standby assist, lower body dressing needs contact guard to minimal assist for balance. Bath transfer requires minimal assist and bathing is done with contact guard assist contact guard to minimal assist for toilet transfer and toileting. OT notes right upper extremity ataxia and vertical diplopia. * Continue PT and OT to optimize mobility and activities of daily living towards the independent to modified independent level and needing only close contact guard assist for ambulation. Cognitive and communication deficits. * Deficits to attention, executive function, memory, orientation, problem solving and reasoning. Worse with cognitive fatigue. * 0L0G . * Expressive and receptive aphasia including empty speech and paraphasic errors. * Continue Speech and Language Pathology. Hydrocephalus status post endoventricular drain placement and removal. She is on dexamethasone on a taper to reduce brain swelling. She will be monitored closely for any signs or symptoms of recurrent hydrocephalus. Postoperative pain management. Using meloxicam and acetaminophen. Not using other medications ordered out of the hospital: oxycodone/acetaminophen and tramadol. Question of insomnia. Nursing notes document up to void only once at night, and greater than 4 hr of sleep. Continue to monitor. Will not initiate any hypnotics at present. Constipation. Continue p.r.n. laxatives. Depressed affect. reports no history of depression. Encouraging that she has had a good night's sleep; was not sleeping well in the hospital. Per she does understand need to be in inpatient rehabilitation. Hope for increased understanding and improved mood as her cognitive function improves. No antidepressant indicated for now. Recent diagnosis of asthma. Continue the Breo Ellipta as well as the p.r.n. albuterol inhaler and nebulizer. She will have incentive spirometry. She will have oxygen as needed. Possible rheumatoid arthritis by history. Appears to be asymptomatic and doubt any exacerbation would be likely while she is on the dexamethasone taper. Renal cyst, likely benign. Any further investigation is postponed until recovery from the craniotomy. Labs have been drawn and sent to determine if she has a genetic mutation consistent with von Hippel-Lindau syndrome. Prophylaxis. She has ambulated more than 200 feet in the hospital and she does not have hemiparesis. Has not ambulated further than 15 ft in the past 2 days on inpatient rehabilitation, largely due to fatigue. If ambulation remains very limited, will need to initiate pharmacologic prophylaxis. She will have sequential compression devices. DISPOSITION: Lives with her at home in [place]. It is a multilevel home with stairs that she must negotiate. Cognitive status needs to improve significantly for her to be left alone at all at home, and she needs to be safe on stairs. Set tentative discharge date for 12/19/2017. Followup. Primary care provider is Dr. Haroon Silva in [place], [place]. Will need to have further discussion with the Neurosurgery and Hematology/Oncology services regarding what followup might be indicated 11/29/17 15:23 11/29/17 15:25 Subjective: Reports interrupted sleep and difficulty attaining sleep. She thinks she is up several times to urinate. Denies pain. No fevers or chills. No nausea vomiting constipation or diarrhea. Objective: Vital Signs Temp Pulse Resp BP Pulse Ox 36.3 C 51 L 14 97/64 L 93 11/29/17 06:25 11/29/17 06:25 11/29/17 06:25 11/29/17 06:25 11/29/17 06:25 11/28/17 11/29/17 11/30/17 05:59 05:59 05:59 Intake Total 870 1540 100 Output Total 900 1800 Balance -30 -260 100 Physical Exam - Physical Exam General Appearance: WD/WN, alert, no apparent distress Respiratory: normal breath sounds, No crackles, No rhonchi, No wheezing Cardiac/Chest: regular rate, rhythm, No diastolic murmur, No systolic murmur Skin: normal color, warm/dry Neuro/Psych: alert, normal mood/affect ICD10 Worksheet Patient Problems: Problems Problem Status Onset Brain tumor Acute
[2017-11-29] MEDS: MELATONIN 3 MG TAB PO SCH (21:20)
[2017-11-30] MEDS: DEXAMETHASONE 2 MG TAB PO SCH (08:44)
[2017-11-30] MEDS: [UNRECOGNIZED DRUG - OTHER] PO SCH ×2 (08:45→20:52)
[2017-11-30] MEDS: FAMOTIDINE 20 MG TAB PO SCH ×2 (08:45→20:53)
[2017-11-30] MEDS: PHOSPSERIN PO SCH ×2 (08:46→20:52)
[2017-11-30] MEDS: EPA PO SCH ×2 (08:46→20:52)
[2017-11-30] MEDS: OMEGA PO SCH ×2 (08:46→20:52)
[2017-11-30] MEDS: DHA PO SCH ×2 (08:46→20:52)
[2017-11-30] MEDS: Fluticasone/Vilanterol [Breo Ellipta 100-25 Mcg Inh] 1 EACH IH SCH (08:47)
[2017-11-30] MEDS: Meloxicam [Meloxicam] 15 MG PO SCH (08:47)
[2017-11-30] MEDS ORDERED: DIPHENHYDRAMINE CREAM TP PRN (12:11)
[2017-11-30] MEDS ORDERED: CALAMINE 180 ML BOTTLE TP PRN (12:11)
--- NOTE | 2017-11-30 12:18 | HOSPPROG ---
Hospitalist Progress Note Assessment/Plan: Assessment: 67 yo F presents after craniotomy for cerebellar hemangioblastoma w / residual aphasia and encephalopathy c/b facial rash today Plan: # Craniotomy for cerebellar hemangioblastoma. Residual aphasia and impaired cognition/encephalopathy -ongoing therapies -slept 4+ hours last night # Facial rash. Acute, papular but not erythematous, pruritic and patient has scratched off the epidermal layer on several of the papules -reviewed Rx, does not appear to have been started on new Rx in past 24hrs -will tx supportively now w/ topical benadryl cream and calamine cream, avoiding systemic antihistamines momentarily, so as not to worsen her cognition and participation w/ therapies # Asthma. Chronic, cont home Breo, currently on RA # Hydrocephalus and cerebral edema. Currently on steroid taper Diet. Regular PPx. SCDs Code. Full Dispo. Lives with her at home in [place]. It is a multilevel home with stairs that she must negotiate. Cognitive status needs to improve significantly for her to be left alone at all at home, and she needs to be safe on stairs. Set tentative discharge date for 12/19/2017. Subjective: pruritic rash erupted overnight on inferior face, had BM, slept 4+ hours Objective: Vital Signs Temp Pulse Resp BP Pulse Ox 36.8 C 63 14 99/65 L 94 11/30/17 07:54 11/30/17 07:54 11/30/17 07:54 11/30/17 07:54 11/30/17 07:54 11/29/17 11/30/17 12/01/17 05:59 05:59 05:59 Intake Total 1540 300 360 Output Total 1800 250 Balance -260 50 360 - Physical Exam Constitutional: no apparent distress, appears nourished, not in pain, No uncomfortable Ears, Nose, Mouth, Throat: moist mucous membranes, hearing normal, no oral mucosal ulcers, No oral thrush Cardiovascular: regular rate and rhythym, no murmur, rub, or gallop Respiratory: no respiratory distress, no rales or rhonchi, clear to auscultation Gastrointestinal: normoactive bowel sounds, soft, non-tender abdomen, no palpable masses Skin: other (papular non-erythematous rash on lower face w/o disruption of epidermis on the papules by scratching, minimal ulcerations) Neurologic: sensation intact bilaterally, No AAOx3 (AAOx2 (person and time)), No weakness Psychiatric: not anxious, flat affect, poor memory, other (exp aphasia, delayed thought process, naming 3/3), No agitated ICD10 Worksheet Patient Problems: Problems Problem Status Onset Brain tumor Acute
[2017-11-30] MEDS ORDERED: MELATONIN 3 MG TAB PO SCH (12:21)
[2017-11-30] MEDS ORDERED: POLYETHYLENE GLYCOL 3350 17 GM PKT PO PRN (17:53)
[2017-11-30] MEDS ORDERED: LACTULOSE 20 GM/30 ML UDCUP PO PRN (17:53)
[2017-11-30] MEDS ORDERED: MAGNESIUM HYDROXIDE 30 ML UDCUP PO PRN (17:53)
[2017-11-30] MEDS: BISACODYL 10 MG SUPP PR PRN (18:12)
[2017-11-30] MEDS: SENNOSIDES/DOCUSATE SODIUM TAB PO SCH (21:38)
[2017-12-01] MEDS: BISACODYL 10 MG SUPP PR PRN (06:41)
[2017-12-01] MEDS: Fluticasone/Vilanterol [Breo Ellipta 100-25 Mcg Inh] 1 EACH IH SCH (08:39)
[2017-12-01] MEDS: PHOSPSERIN PO SCH ×2 (08:40→21:42)
[2017-12-01] MEDS: FAMOTIDINE 20 MG TAB PO SCH ×2 (08:40→21:39)
[2017-12-01] MEDS: DEXAMETHASONE 2 MG TAB PO SCH (08:40)
[2017-12-01] MEDS: OMEGA PO SCH ×2 (08:40→21:42)
[2017-12-01] MEDS: EPA PO SCH ×2 (08:40→21:42)
[2017-12-01] MEDS: DHA PO SCH ×2 (08:40→21:42)
[2017-12-01] MEDS: [UNRECOGNIZED DRUG - OTHER] PO SCH ×2 (08:41→21:41)
[2017-12-01] MEDS: Meloxicam [Meloxicam] 15 MG PO SCH (08:42)
[2017-12-01] MEDS: SENNOSIDES/DOCUSATE SODIUM TAB PO SCH ×2 (08:42→21:38)
--- NOTE | 2017-12-01 12:42 | HOSPPROG ---
Hospitalist Progress Note Assessment/Plan: Assessment: 67 yo F presents after craniotomy for cerebellar hemangioblastoma w / residual aphasia and encephalopathy c/b facial rash today Plan: # Craniotomy for cerebellar hemangioblastoma. Residual aphasia and impaired cognition/encephalopathy, feels that patient is improving memory of recent events and communicative abilities -ongoing therapies -got up independently last night, cont bed alarm # Facial rash. Acute, papular but not erythematous, pruritic and patient has scratched off the epidermal layer on several of the papules -will tx supportively now w/ topical benadryl cream and calamine cream, avoiding systemic antihistamines momentarily, so as not to worsen her cognition and participation w/ therapies -improving today w/ topical creams - reports she has had chin rash in past, unclear etiology # Asthma. Chronic, cont home Breo, currently on RA # Hydrocephalus and cerebral edema. Currently on steroid taper Diet. Regular PPx. SCDs Code. Full Dispo. Lives with her at home in [place]. It is a multilevel home with stairs that she must negotiate. Cognitive status needs to improve significantly for her to be left alone at all at home, and she needs to be safe on stairs. Set tentative discharge date for 12/19/2017. Subjective: moving her bowels, got up independently last night w/o using call button, no fall Objective: Vital Signs Temp Pulse Resp BP Pulse Ox 36.6 C 53 L 14 99/64 L 97 12/01/17 07:41 12/01/17 07:41 12/01/17 07:41 12/01/17 07:41 12/01/17 07:41 11/30/17 12/01/17 12/02/17 05:59 05:59 05:59 Intake Total 300 800 660 Output Total 250 Balance 50 800 660 - Physical Exam Constitutional: no apparent distress, appears nourished, not in pain, No uncomfortable Ears, Nose, Mouth, Throat: moist mucous membranes, no oral mucosal ulcers Cardiovascular: regular rate and rhythym, no murmur, rub, or gallop, No edema Respiratory: no respiratory distress, no rales or rhonchi, clear to auscultation Gastrointestinal: normoactive bowel sounds, soft, non-tender abdomen, No guarding, No distension Skin: other (non-erythematous papules chin, scratched off epidermal layer w/o jose ulcerations, no sloughing) Neurologic: other (naming 2/3, expressive aphasia), No AAOx3 (AAOx2), No weakness (motor 5/5 bilat UE/LE) Psychiatric: not anxious, flat affect, poor memory, other (follows commands), No agitated ICD10 Worksheet Patient Problems: Problems Problem Status Onset Brain tumor Acute
[2017-12-01] MEDS: traZODone 50 MG TAB PO SCH (21:39)
[2017-12-02] MEDS: SENNOSIDES/DOCUSATE SODIUM TAB PO SCH (09:10)
[2017-12-02] MEDS: DEXAMETHASONE 2 MG TAB PO SCH ×2 (09:10→20:16)
[2017-12-02] MEDS: Meloxicam [Meloxicam] 15 MG PO SCH (09:10)
[2017-12-02] MEDS: FAMOTIDINE 20 MG TAB PO SCH ×2 (09:10→20:15)
[2017-12-02] MEDS: PHOSPSERIN PO SCH ×2 (09:12→20:18)
[2017-12-02] MEDS: DHA PO SCH ×2 (09:12→20:18)
[2017-12-02] MEDS: [UNRECOGNIZED DRUG - OTHER] PO SCH ×2 (09:12→20:18)
[2017-12-02] MEDS: EPA PO SCH ×2 (09:12→20:18)
[2017-12-02] MEDS: OMEGA PO SCH ×2 (09:12→20:18)
[2017-12-02] MEDS: ESTRADIOL VIVELLE 0.025 MG PATCH TD SCH (09:13)
[2017-12-02] MEDS: Fluticasone/Vilanterol [Breo Ellipta 100-25 Mcg Inh] 1 EACH IH SCH (09:13)
[2017-12-02] MEDS ORDERED: SENNOSIDES 1 TAB PO PRN (12:12)
--- NOTE | 2017-12-02 12:13 | SOAPPROG ---
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 * Initial functional independence measure is 52 on 11/28/20170. Minimal assist for bed mobility. Transfers with minimal assist using front wheeled walker. Ambulated 15 ft with minimal to moderate assist using front wheeled walker. Loss of balance with turning. Poor retention of strategies. Grooming and hygiene done standing with cues to initiate and sequence. Upper body dressing needs standby assist, lower body dressing needs contact guard to minimal assist for balance. Bath transfer requires minimal assist and bathing is done with contact guard assist contact guard to minimal assist for toilet transfer and toileting. OT notes right upper extremity ataxia and vertical diplopia. * Continue PT and OT to optimize mobility and activities of daily living towards the independent to modified independent level and needing only close contact guard assist for ambulation. Cognitive and communication deficits. * Deficits to attention, executive function, memory, orientation, problem solving and reasoning. Worse with cognitive fatigue. * 0L0G 13/30 on 11/28/2017. * Expressive and receptive aphasia including empty speech and paraphasic errors. * Continue Speech and Language Pathology. Hydrocephalus status post endoventricular drain placement and removal. She is on dexamethasone on a taper to reduce brain swelling. She will be monitored closely for any signs or symptoms of recurrent hydrocephalus. Postoperative pain management. Using meloxicam and acetaminophen. Not using other medications ordered out of the hospital: oxycodone/acetaminophen and tramadol. Question of insomnia. Nursing notes document up to void only once at night, and greater than 4 hr of sleep. Continue to monitor. Will not initiate any hypnotics at present. Constipation. Continue p.r.n. laxatives. Depressed affect. reports no history of depression. Encouraging that she has had a good night's sleep; was not sleeping well in the hospital. Per she does understand need to be in inpatient rehabilitation. Hope for increased understanding and improved mood as her cognitive function improves. No antidepressant indicated for now. Recent diagnosis of asthma. Continue the Breo Ellipta as well as the p.r.n. albuterol inhaler and nebulizer. She will have incentive spirometry. She will have oxygen as needed. Possible rheumatoid arthritis by history. Appears to be asymptomatic and doubt any exacerbation would be likely while she is on the dexamethasone taper. Renal cyst, likely benign. Any further investigation is postponed until recovery from the craniotomy. Labs have been drawn and sent to determine if she has a genetic mutation consistent with von Hippel-Lindau syndrome. Prophylaxis. She has ambulated more than 200 feet in the hospital and she does not have hemiparesis. Has not ambulated further than 15 ft in the past 2 days on inpatient rehabilitation, largely due to fatigue. If ambulation remains very limited, will need to initiate pharmacologic prophylaxis. She will have sequential compression devices. DISPOSITION: Lives with her at home in [place]. It is a multilevel home with stairs that she must negotiate. Cognitive status needs to improve significantly for her to be left alone at all at home, and she needs to be safe on stairs. Set tentative discharge date for 12/19/2017. Followup. Primary care provider is Dr. Haroon Silva in [place], [place]. Will need to have further discussion with the Neurosurgery and Hematology/Oncology services regarding what followup might be indicated 12/02/17 12:13 Subjective: Complains of double vision with 1 image above the other image. OT reports she was able to read get well cards with 100% accuracy. She is otherwise without complaints. Not in pain, sleeping well, no cough or dyspnea, no fevers or chills. Objective: Vital Signs Temp Pulse Resp BP Pulse Ox 36.7 C 58 L 15 100/67 92 12/02/17 06:24 12/02/17 06:24 12/02/17 06:24 12/02/17 06:24 12/02/17 06:24 12/01/17 12/02/17 12/03/17 05:59 05:59 05:59 Intake Total 800 1200 350 Balance 800 1200 350 Physical Exam - Physical Exam General Appearance: WD/WN, alert, no apparent distress Respiratory: normal breath sounds, No crackles, No rhonchi, No wheezing Cardiac/Chest: regular rate, rhythm, No edema, No diastolic murmur, No systolic murmur Skin: normal color, warm/dry Neuro/Psych: alert, normal mood/affect, cognition abnormalities (Vagueness to responses) ICD10 Worksheet Patient Problems: Problems Problem Status Onset Brain tumor Acute
[2017-12-02] MEDS: traZODone 50 MG TAB PO SCH (20:15)
[2017-12-03] MEDS: FAMOTIDINE 20 MG TAB PO SCH ×2 (08:46→20:22)
[2017-12-03] MEDS: DEXAMETHASONE 2 MG TAB PO SCH ×2 (08:46→20:26)
[2017-12-03] MEDS: Fluticasone/Vilanterol [Breo Ellipta 100-25 Mcg Inh] 1 EACH IH SCH (08:46)
[2017-12-03] MEDS: Meloxicam [Meloxicam] 15 MG PO SCH (08:47)
[2017-12-03] MEDS: [UNRECOGNIZED DRUG - OTHER] PO SCH ×2 (08:48→20:27)
[2017-12-03] MEDS: OMEGA PO SCH ×2 (08:49→20:29)
[2017-12-03] MEDS: PHOSPSERIN PO SCH ×2 (08:49→20:29)
[2017-12-03] MEDS: EPA PO SCH ×2 (08:49→20:29)
[2017-12-03] MEDS: DHA PO SCH ×2 (08:49→20:29)
--- NOTE | 2017-12-03 10:40 | SOAPPROG ---
SOAP Progress Note Assessment/Plan: 67-year-old woman status post a resection of a hemangioblastoma from the posterior fossa on 11/12/2017, prolonged acute care hospital course, with impairments in mobility, self-care, cognition, depression. Today's update: Participating in therapies, feeling very frustrated and depressed without suicidal ideation. Also has orthostatic hypotension that is symptomatic and interfering with therapies. I recommended that she work with counseling, consider starting fluoxetine for depression as well as possible aid in neural recovery though this is not the same population that is been studied. Also recommending abdominal binder and thigh-high stockings for orthostatic hypotension management. She was convinced that she has been in inpatient rehabilitation at [facility] in 2016 for some reason, I do not find record of this. She does endorse that 25 years ago she had a traumatic brain injury and went through inpatient rehabilitation, which she thought was in [place]. She is making progress in therapies and participating. 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 Discussed pharmacologic versus non pharmacologic treatment options for orthostatic hypotension and depression. Additional issues reviewed without change today include hydrocephalus, postoperative pain management, insomnia, constipation, asthma, rheumatoid arthritis, renal cyst, prophylaxis. 12/03/17 10:36 Subjective: Chief complaint: Low mood and impaired cognition No acute events overnight. Patient denies any new shortness of breath or chest pain, no new numbness, tingling, or weakness. She endorses that she feels depressed, no suicidal ideation. She denies a history of depression and feels that she has some confusion as to her history of brain injuries. She thinks she was in [facility] inpatient rehabilitation approximately 2 years ago for some reason, also acknowledges a prior traumatic brain injury in 1992 from which she fully recovered. She endorses lightheadedness when standing , has not tried abdominal binder or leg wraps. She continues on a steroid taper. She prefers to start with depression treatment with counseling as opposed to medications, and I explained the role of both. Objective: Vital Signs Temp Pulse Resp BP Pulse Ox 36.6 C 62 14 88/64 L 92 12/03/17 08:00 12/03/17 08:00 12/03/17 08:00 12/03/17 08:00 12/03/17 08:00 12/02/17 12/03/17 12/04/17 05:59 05:59 05:59 Intake Total 1200 1200 240 Balance 1200 1200 240 Physical Exam - Physical Exam General Appearance: WD/WN, alert, no apparent distress EENT: No scleral icterus (R), No scleral icterus (L) Respiratory: lungs clear, normal breath sounds, No respiratory distress, No accessory muscle use, No rales, No rhonchi, No wheezing Cardiac/Chest: normal peripheral pulses, regular rate, rhythm, No edema, No diastolic murmur, No systolic murmur Abdomen: non-tender, soft Skin: normal color, warm/dry, No cyanosis, No diaphoresis Extremities: non-tender, No pedal edema, No calf tenderness, No swelling Neuro/Psych: alert, abnormal cerebellar tests, other (She endorsed some diplopia , but did not have any on extraocular movement testing.), No normal mood/affect (Depressed mood, flat affect) ICD10 Worksheet Patient Problems: Problems Problem Status Onset Brain tumor Acute
[2017-12-03] MEDS: ACETAMINOPHEN 325 MG TAB PO PRN (14:32)
[2017-12-03] MEDS: traZODone 50 MG TAB PO SCH (20:23)
[2017-12-04] MEDS: ACETAMINOPHEN 325 MG TAB PO PRN ×2 (07:36→20:05)
[2017-12-04] MEDS: DEXAMETHASONE 2 MG TAB PO SCH (08:58)
[2017-12-04] MEDS: FAMOTIDINE 20 MG TAB PO SCH ×2 (08:58→20:04)
[2017-12-04] MEDS: Fluticasone/Vilanterol [Breo Ellipta 100-25 Mcg Inh] 1 EACH IH SCH (09:01)
[2017-12-04] MEDS: Meloxicam [Meloxicam] 15 MG PO SCH (09:02)
[2017-12-04] MEDS: [UNRECOGNIZED DRUG - OTHER] PO SCH ×2 (09:03→20:05)
[2017-12-04] MEDS: OMEGA PO SCH ×2 (09:03→20:05)
[2017-12-04] MEDS: DHA PO SCH ×2 (09:03→20:05)
[2017-12-04] MEDS: PHOSPSERIN PO SCH ×2 (09:03→20:05)
[2017-12-04] MEDS: EPA PO SCH ×2 (09:03→20:05)
--- NOTE | 2017-12-04 09:43 | SOAPPROG ---
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 * Initial functional independence measure is 52 on 11/28/2017, improved to 64 as of 12/04/2017. Minimal assist for mobility. Ambulated 150 ft with a front wheeled walker and minimal assist. Needs cues to maintain focus. Grooming and hygiene are done seated with standby assist. Upper body dressing requires standby assist, lower body dressing requires contact guard assist for dressing. Bath transfer requires contact guard to minimal assist and bathing is done with contact guard were standby assist. Toilet transfer requires contact guard to minimal assist and toileting with contact guard assist. She has right upper extremity ataxia and she tends to have loss of balance to the right. Complaint of diplopia is inconsistent. * Continue PT and OT to optimize mobility and activities of daily living towards the independent to modified independent level and needing only close contact guard assist for ambulation. Cognitive and communication deficits. * Deficits to attention, executive function, memory, orientation, problem solving and reasoning. Worse with cognitive fatigue. * 0L0G /30 on 11/28/2017. * Receptive aphasia is improving and she has more participatory. Still has paraphasic errors and language of confusion. * Discussed with Neurosurgery KALEE Reagan, 12/04/2017. She reports that the surgeons (Bayron and Miki) were expecting aphasia due to cerebellar lesion. * Continue Speech and Language Pathology. Hydrocephalus status post endoventricular drain placement and removal. She is on dexamethasone on a taper to reduce brain swelling. She will be monitored closely for any signs or symptoms of recurrent hydrocephalus. Postoperative pain management. Using meloxicam and acetaminophen. Not using other medications ordered out of the hospital: oxycodone/acetaminophen and tramadol. Orthostatic hypotension noted 12/03/2017. She was primarily orthostatic by heart rate rather than blood pressure. Thigh-high OZIEL hose and abdominal binder have been initiated. With improved p.o. Intake she may not need these interventions. Continue to monitor. Insomnia. Improved with trazodone. Depression versus adjustment disorder with depressed mood. Often tearful through the day per nursing. * Initiate citalopram 5 mg q.day starting 12/05/2017. If tolerated will rapidly titrate to 20 mg q.day. * Continue therapy per DIRECTOR PEDIATRIC. Constipation. Continue p.r.n. laxatives. Nursing reports it takes some persuasion to get her to except them. Recent diagnosis of asthma. Continue the Breo Ellipta as well as the p.r.n. albuterol inhaler and nebulizer. She will have incentive spirometry. She will have oxygen as needed. Possible rheumatoid arthritis by history. Appears to be asymptomatic and doubt any exacerbation would be likely while she is on the dexamethasone taper. Renal cyst, likely benign. Any further investigation is postponed until recovery from the craniotomy. Labs have been drawn and sent to determine if she has a genetic mutation consistent with von Hippel-Lindau syndrome. Prophylaxis. She has ambulated more than 200 feet in the hospital and she does not have hemiparesis. Has not ambulated further than 15 ft in the past 2 days on inpatient rehabilitation, largely due to fatigue. If ambulation remains very limited, will need to initiate pharmacologic prophylaxis. She will have sequential compression devices. DISPOSITION: Attended staffing, 15 min. Discussed with case management, nursing, dietitian, PT, OT, HEAD OF SCIENCE. Lives with her at home in [place]. It is a multilevel home with stairs that she must negotiate indoors, and 3 steps to enter. Cognitive status needs to improve significantly for her to be left alone at all at home, and she needs to be safe on stairs. Continue discharge date for 12/19/2017. Followup. Primary care provider is Dr. Haroon Silva in [place], [place]. Will need to have further discussion with the Neurosurgery and Hematology/Oncology services regarding what followup might be indicated 12/04/17 12:38 Subjective: No complaints. Slept well. Expresses desire to leave and appears to have been packing some of her belongings. Objective: Vital Signs Temp Pulse Resp BP Pulse Ox 36.4 C 53 L 14 102/67 95 12/03/17 18:35 12/03/17 18:35 12/03/17 18:35 12/03/17 18:35 12/03/17 18:35 12/03/17 12/04/17 12/05/17 05:59 05:59 05:59 Intake Total 1200 910 Balance 1200 910 - Time Spent With Patient Time Spent With Patient: Greater than 35 min floor time today, including more than 50% of time in coordination of care during staffing meeting, and counseling patient and her partner. Physical Exam - Physical Exam General Appearance: WD/WN, alert, no apparent distress Respiratory: No respiratory distress, No accessory muscle use Skin: normal color, warm/dry Neuro/Psych: alert, normal mood/affect, oriented x 3, cognition abnormalities, speech abnormalities ICD10 Worksheet Patient Problems: Problems Problem Status Onset Brain tumor Acute
[2017-12-04] MEDS: traZODone 50 MG TAB PO SCH (20:05)
[2017-12-05] MEDS: DEXAMETHASONE 2 MG TAB PO SCH (08:21)
[2017-12-05] MEDS: FAMOTIDINE 20 MG TAB PO SCH ×2 (08:21→20:09)
[2017-12-05] MEDS: PHOSPSERIN PO SCH ×2 (08:22→20:10)
[2017-12-05] MEDS: DHA PO SCH ×2 (08:22→20:10)
[2017-12-05] MEDS: OMEGA PO SCH ×2 (08:22→20:10)
[2017-12-05] MEDS: EPA PO SCH ×2 (08:22→20:10)
[2017-12-05] MEDS: [UNRECOGNIZED DRUG - OTHER] PO SCH ×2 (08:22→20:09)
[2017-12-05] MEDS: Meloxicam [Meloxicam] 15 MG PO SCH (08:23)
[2017-12-05] MEDS: Fluticasone/Vilanterol [Breo Ellipta 100-25 Mcg Inh] 1 EACH IH SCH (08:24)
[2017-12-05] MEDS: ESTRADIOL VIVELLE 0.025 MG PATCH TD SCH (08:29)
[2017-12-05] MEDS: CITALOPRAM 20 MG TAB PO SCH (08:40)
--- NOTE | 2017-12-05 08:41 | SOAPPROG ---
SOAP Progress Note Assessment/Plan: 67-year-old woman status post a resection of a hemangioblastoma from the posterior fossa on 11/12/2017, prolonged acute care hospital course, with impairments in mobility, self-care, cognition, depression. Today's update: Supported her in her low mood and adjustment to disability. Encouraged her for continued good participation, counseled her about possible side effects and benefits of SSRI, citalopram 20 mg daily. Continues to have neurological improvement. Continue rehabilitation plan, seems to be responding well. 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 Discussed side effects and benefits/risks of SSRI including decreased libido. Additional issues reviewed without change today include hydrocephalus, postoperative pain management, insomnia, constipation, asthma, rheumatoid arthritis, renal cyst, prophylaxis. 12/03/17 10:36 12/05/17 08:36 Subjective: Chief complaint: Low mood and neurological progress No acute events overnight. Patient denies any new shortness of breath or chest pain, no new numbness, tingling, or weakness. Still endorses low mood in some frustration today. She feels she is not making as much progress as she would like to. She colleges that she has high expectations for herself. She inquired again about the SSRI and potential role for mood and neurological recovery. It does appear that Dr. Navarro started 5 mg daily of citalopram, unclear if the patient was aware of this or not. She is hoping for more immediate response, but counseled her that it could time. She feels that she is making neurological progress and functional recovery though slow. No reports of orthostatic hypotension, but not asked specifically today. Objective: Vital Signs Temp Pulse Resp BP Pulse Ox 36.8 C 59 L 14 110/67 92 12/04/17 19:41 12/04/17 19:34 12/04/17 19:34 12/04/17 19:34 12/04/17 19:34 12/04/17 12/05/17 12/06/17 05:59 05:59 05:59 Intake Total 910 990 Output Total 30 Balance 910 960 Physical Exam - Physical Exam General Appearance: WD/WN, alert, mild distress, other (Tearful at times) EENT: No scleral icterus (R), No scleral icterus (L) Respiratory: No respiratory distress, No accessory muscle use Cardiac/Chest: normal peripheral pulses, regular rate, rhythm, No edema Skin: normal color, warm/dry, No cyanosis, No diaphoresis Extremities: No pedal edema, No calf tenderness, No swelling Neuro/Psych: alert, abnormal cerebellar tests, No normal mood/affect (Low mood, flat and depressed affect) ICD10 Worksheet Patient Problems: Problems Problem Status Onset Brain tumor Acute
[2017-12-05] MEDS ORDERED: CITALOPRAM 20 MG TAB PO SCH (09:00)
[2017-12-05] MEDS: traZODone 50 MG TAB PO SCH (20:09)
[2017-12-06] MEDS: FAMOTIDINE 20 MG TAB PO SCH ×2 (08:54→21:16)
[2017-12-06] MEDS: CITALOPRAM 20 MG TAB PO SCH (08:54)
[2017-12-06] MEDS: Meloxicam [Meloxicam] 15 MG PO SCH (08:57)
[2017-12-06] MEDS: [UNRECOGNIZED DRUG - OTHER] PO SCH ×2 (09:00→21:16)
[2017-12-06] MEDS: DHA PO SCH ×2 (09:02→21:17)
[2017-12-06] MEDS: PHOSPSERIN PO SCH ×2 (09:02→21:17)
[2017-12-06] MEDS: OMEGA PO SCH ×2 (09:02→21:17)
[2017-12-06] MEDS: EPA PO SCH ×2 (09:02→21:17)
[2017-12-06] MEDS: Fluticasone/Vilanterol [Breo Ellipta 100-25 Mcg Inh] 1 EACH IH SCH (09:03)
--- NOTE | 2017-12-06 12:15 | SOAPPROG ---
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 * Initial functional independence measure is 52 on 11/28/2017, improved to 64 as of 12/04/2017. Minimal assist for mobility. Ambulated 150 ft with a front wheeled walker and minimal assist. Needs cues to maintain focus. Grooming and hygiene are done seated with standby assist. Upper body dressing requires standby assist, lower body dressing requires contact guard assist for dressing. Bath transfer requires contact guard to minimal assist and bathing is done with contact guard were standby assist. Toilet transfer requires contact guard to minimal assist and toileting with contact guard assist. She has right upper extremity ataxia and she tends to have loss of balance to the right. Complaint of diplopia is inconsistent. * Continue PT and OT to optimize mobility and activities of daily living towards the independent to modified independent level and needing only close contact guard assist for ambulation. Cognitive and communication deficits. * Deficits to attention, executive function, memory, orientation, problem solving and reasoning. Worse with cognitive fatigue. * 0L0G /30 on 11/28/2017. * Receptive aphasia is improving and she is more participatory. Still has paraphasic errors and language of confusion. * Discussed with Neurosurgery KALEE Reagan, 12/04/2017. She reports that the surgeons (Stacie and Miki) were expecting aphasia due to cerebellar lesion. * Continue Speech and Language Pathology. Hydrocephalus status post endoventricular drain placement and removal. She is on dexamethasone on a taper to reduce brain swelling. She will be monitored closely for any signs or symptoms of recurrent hydrocephalus. Postoperative pain management. Using meloxicam and acetaminophen. Not using other medications ordered out of the hospital: oxycodone/acetaminophen and tramadol. Orthostatic hypotension noted 12/03/2017. She was primarily orthostatic by heart rate rather than blood pressure. Thigh-high OZIEL hose and abdominal binder have been initiated. With improved p.o. Intake she may not need these interventions. Continue to monitor. Insomnia. Improved with trazodone. Depression versus adjustment disorder with depressed mood. Often tearful through the day per nursing. * Initiated citalopram 20 mg q.day starting 12/05/2017. * Continue therapy per MALL PLANT CARETAKER. Constipation. * Dulcolax suppository today, 12/06/2017. * Schedule laxatives beginning today, 12/06/2017. Recent diagnosis of asthma. Continue the Breo Ellipta as well as the p.r.n. albuterol inhaler and nebulizer. She will have incentive spirometry. She will have oxygen as needed. Possible rheumatoid arthritis by history. Appears to be asymptomatic and doubt any exacerbation would be likely while she is on the dexamethasone taper. Renal cyst, likely benign. Any further investigation is postponed until recovery from the craniotomy. Labs have been drawn and sent to determine if she has a genetic mutation consistent with von Hippel-Lindau syndrome. Prophylaxis. She has ambulated more than 200 feet in the hospital and she does not have hemiparesis. Has not ambulated further than 15 ft in the past 2 days on inpatient rehabilitation, largely due to fatigue. If ambulation remains very limited, will need to initiate pharmacologic prophylaxis. She will have sequential compression devices. DISPOSITION: Lives with her at home in [place]. It is a multilevel home with stairs that she must negotiate indoors, and 3 steps to enter. Cognitive status needs to improve significantly for her to be left alone at all at home, and she needs to be safe on stairs. Continue discharge date for 2017. Followup. Primary care provider is Dr. Haroon Silva in [place], [place]. Will need to have further discussion with the Neurosurgery and Hematology/Oncology services regarding what followup might be indicated 12/06/17 14:06 Subjective: No complaints. Sleeping well. Not in pain. Objective: Vital Signs Temp Pulse Resp BP Pulse Ox 36.7 C 66 16 107/70 92 12/06/17 05:50 12/06/17 05:50 12/06/17 05:50 12/06/17 05:50 12/06/17 05:50 12/05/17 12/06/17 12/07/17 05:59 05:59 05:59 Intake Total 990 720 600 Output Total 30 Balance 960 720 600 Physical Exam - Physical Exam General Appearance: WD/WN, alert, no apparent distress Respiratory: No respiratory distress, No accessory muscle use Skin: normal color, warm/dry Neuro/Psych: alert, normal mood/affect, abnormal gait (Slightly wide-based and short steps with front wheeled walker, accompanied by Physical therapy.), cognition abnormalities (Vague and repetitive thought content. Appears to have retained safe strategies for sitting up out of the wheelchair to the walker) ICD10 Worksheet Patient Problems: Problems Problem Status Onset Brain tumor Acute
[2017-12-06] MEDS: traZODone 50 MG TAB PO SCH (21:16)
[2017-12-06] MEDS: SENNOSIDES 1 TAB PO SCH (21:16)
[2017-12-06] MEDS: LUBIPROSTONE 8 MCG CAP PO SCH (22:07)
[2017-12-07] MEDS: LUBIPROSTONE 8 MCG CAP PO SCH ×2 (07:20→19:25)
[2017-12-07] MEDS: POLYETHYLENE GLYCOL 3350 17 GM PKT PO SCH (07:27)
[2017-12-07] MEDS: CITALOPRAM 20 MG TAB PO SCH (08:24)
[2017-12-07] MEDS: FAMOTIDINE 20 MG TAB PO SCH ×2 (08:24→19:20)
[2017-12-07] MEDS: Fluticasone/Vilanterol [Breo Ellipta 100-25 Mcg Inh] 1 EACH IH SCH (08:25)
[2017-12-07] MEDS: Meloxicam [Meloxicam] 15 MG PO SCH (08:26)
[2017-12-07] MEDS: [UNRECOGNIZED DRUG - OTHER] PO SCH ×2 (08:28→19:25)
[2017-12-07] MEDS: DHA PO SCH ×2 (08:29→19:25)
[2017-12-07] MEDS: EPA PO SCH ×2 (08:29→19:25)
[2017-12-07] MEDS: PHOSPSERIN PO SCH ×2 (08:29→19:25)
[2017-12-07] MEDS: OMEGA PO SCH ×2 (08:29→19:25)
[2017-12-07] MEDS: SENNOSIDES 1 TAB PO SCH ×2 (08:52→19:26)
--- NOTE | 2017-12-07 10:06 | SOAPPROG ---
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 * Initial functional independence measure is 52 on 11/28/2017, improved to 64 as of 12/04/2017. Minimal assist for mobility. Ambulated 150 ft with a front wheeled walker and minimal assist. Needs cues to maintain focus. Grooming and hygiene are done seated with standby assist. Upper body dressing requires standby assist, lower body dressing requires contact guard assist for dressing. Bath transfer requires contact guard to minimal assist and bathing is done with contact guard were standby assist. Toilet transfer requires contact guard to minimal assist and toileting with contact guard assist. She has right upper extremity ataxia and she tends to have loss of balance to the right. Complaint of diplopia is inconsistent. * Continue PT and OT to optimize mobility and activities of daily living towards the independent to modified independent level and needing only close contact guard assist for ambulation. Cognitive and communication deficits. * Deficits to attention, executive function, memory, orientation, problem solving and reasoning. Worse with cognitive fatigue. * 0L0G 13/30 on 11/28/2017. * Receptive aphasia is improving and she is more participatory. Still has paraphasic errors and language of confusion. * Discussed with Neurosurgery KALEE Reagan, 12/04/2017. She reports that the surgeons (Stacie and Miki) were expecting aphasia due to cerebellar lesion. * Continue Speech and Language Pathology. Hydrocephalus status post endoventricular drain placement and removal. She is on dexamethasone on a taper to reduce brain swelling. She will be monitored closely for any signs or symptoms of recurrent hydrocephalus. Postoperative pain management. Using meloxicam and acetaminophen. Not using other medications ordered out of the hospital: oxycodone/acetaminophen and tramadol. Orthostatic hypotension noted 12/03/2017. She was primarily orthostatic by heart rate rather than blood pressure. Thigh-high OZIEL hose and abdominal binder have been initiated. With improved p.o. Intake she may not need these interventions. Continue to monitor. Insomnia. Improved with trazodone. Depression versus adjustment disorder with depressed mood. Often tearful through the day per nursing. * Initiated citalopram 20 mg q.day starting 12/05/2017. PATIENT WAS TEARFUL DURING THIS MORNING'S ROUNDS. SHE STATES THAT SHE CANNOT TELL OF THE CITALOPRAM IS HELPING * Continue therapy per SLUBBER RUNNER. Constipation. PATIENT DID NOT RECEIVE DOSAGE OF LUBIPROSTONE LAST NIGHT, BUT DID RECEIVE SOME THIS MORNING. DISCUSSED HER BOWEL PROGRAM WITH HER NURSE. SHE WILL TRY A COMBINATION OF MIRALAX AND SENOKOT THIS MORNING. HER NURSE, UGO , ALSO STATED THAT ON PREVIOUS HOSPITALIZATION ON THIS UNIT, PATIENT TOOK DULCOLAX WITH GOOD SUCCESS BUT CURRENTLY REFUSES THIS. IF NO BOWEL MOVEMENT TODAY THEN WILL INCREASE LUBIPROSTONE TO 16 MCG TWICE DAILY. * Dulcolax suppository today, 12/06/2017. * Schedule laxatives beginning today, 12/06/2017. Recent diagnosis of asthma. Continue the Breo Ellipta as well as the p.r.n. albuterol inhaler and nebulizer. She will have incentive spirometry. She will have oxygen as needed. Possible rheumatoid arthritis by history. Appears to be asymptomatic and doubt any exacerbation would be likely while she is on the dexamethasone taper. Renal cyst, likely benign. Any further investigation is postponed until recovery from the craniotomy. Labs have been drawn and sent to determine if she has a genetic mutation consistent with von Hippel-Lindau syndrome. Prophylaxis. She has ambulated more than 200 feet in the hospital and she does not have hemiparesis. Has not ambulated further than 15 ft in the past 2 days on inpatient rehabilitation, largely due to fatigue. If ambulation remains very limited, will need to initiate pharmacologic prophylaxis. She will have sequential compression devices. DISPOSITION: Lives with her at home in [place]. It is a multilevel home with stairs that she must negotiate indoors, and 3 steps to enter. Cognitive status needs to improve significantly for her to be left alone at all at home, and she needs to be safe on stairs. Continue discharge date for 2017. Followup. Primary care provider is Dr. Haroon Silva in [place], [place]. Will need to have further discussion with the Neurosurgery and Hematology/Oncology services regarding what followup might be indicated Plan: 12/07/17 10:01 Subjective: SHE BECAME TEARFUL DURING ROUNDS. SHE EXPRESSES THAT SHE IS VERY DEPRESSED. SHE CAN'T TELL IF THIS IS THE CITALOPRAM IS HELPING. NURSING REPORTS THAT SHE HAS NOT HAD A BOWEL MOVEMENT FOR SEVERAL DAYS BUT SHE IS REFUSING SOME OF THE BOWEL MEDS. Objective: Vital Signs Temp Pulse Resp BP Pulse Ox 36.6 C 53 L 16 111/70 92 12/06/17 20:12 12/06/17 20:12 12/06/17 20:12 12/06/17 20:12 12/06/17 20:12 12/06/17 12/07/17 12/08/17 05:59 05:59 05:59 Intake Total 720 700 720 Balance 720 700 720 Physical Exam - Physical Exam General Appearance: WD/WN, alert, moderate distress Respiratory: lungs clear, normal breath sounds Abdomen: non-tender, soft Neuro/Psych: alert, abnormal gait, motor weakness, depressed affect ICD10 Worksheet Patient Problems: Problems Problem Status Onset Brain tumor Acute
[2017-12-07] MEDS: ACETAMINOPHEN 325 MG TAB PO PRN (11:57)
[2017-12-07] MEDS: traZODone 50 MG TAB PO SCH (19:20)
[2017-12-08] MEDS: ACETAMINOPHEN 325 MG TAB PO PRN (08:54)
[2017-12-08] MEDS: FAMOTIDINE 20 MG TAB PO SCH ×2 (08:55→21:28)
[2017-12-08] MEDS: CITALOPRAM 20 MG TAB PO SCH (08:55)
[2017-12-08] MEDS: Fluticasone/Vilanterol [Breo Ellipta 100-25 Mcg Inh] 1 EACH IH SCH (08:55)
[2017-12-08] MEDS: LUBIPROSTONE 8 MCG CAP PO SCH ×2 (08:56→21:28)
[2017-12-08] MEDS: Meloxicam [Meloxicam] 15 MG PO SCH (08:57)
[2017-12-08] MEDS: [UNRECOGNIZED DRUG - OTHER] PO SCH ×2 (08:57→21:28)
[2017-12-08] MEDS: DHA PO SCH ×2 (08:58→21:28)
[2017-12-08] MEDS: EPA PO SCH ×2 (08:58→21:28)
[2017-12-08] MEDS: OMEGA PO SCH ×2 (08:58→21:28)
[2017-12-08] MEDS: PHOSPSERIN PO SCH ×2 (08:58→21:28)
[2017-12-08] MEDS: POLYETHYLENE GLYCOL 3350 17 GM PKT PO SCH (08:59)
[2017-12-08] MEDS: SENNOSIDES 1 TAB PO SCH ×2 (08:59→21:28)
--- NOTE | 2017-12-08 10:48 | SOAPPROG ---
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 * Initial functional independence measure is 52 on 11/28/2017, improved to 64 as of 12/04/2017. Minimal assist for mobility. Ambulated 150 ft with a front wheeled walker and minimal assist. Needs cues to maintain focus. Grooming and hygiene are done seated with standby assist. Upper body dressing requires standby assist, lower body dressing requires contact guard assist for dressing. Bath transfer requires contact guard to minimal assist and bathing is done with contact guard were standby assist. Toilet transfer requires contact guard to minimal assist and toileting with contact guard assist. She has right upper extremity ataxia and she tends to have loss of balance to the right. Complaint of diplopia is inconsistent. * Continue PT and OT to optimize mobility and activities of daily living towards the independent to modified independent level and needing only close contact guard assist for ambulation. Cognitive and communication deficits. * Deficits to attention, executive function, memory, orientation, problem solving and reasoning. Worse with cognitive fatigue. * 0L0G 13/30 on 11/28/2017. * Receptive aphasia is improving and she is more participatory. Still has paraphasic errors and language of confusion. * Discussed with Neurosurgery KALEE Reagan, 12/04/2017. She reports that the surgeons (Stacie and Miki) were expecting aphasia due to cerebellar lesion. * Continue Speech and Language Pathology. Hydrocephalus status post endoventricular drain placement and removal. She is on dexamethasone on a taper to reduce brain swelling. She will be monitored closely for any signs or symptoms of recurrent hydrocephalus. NO CONFUSION REPORTED BY STAFF MEMBERS Postoperative pain management. Using meloxicam and acetaminophen. Not using other medications ordered out of the hospital: oxycodone/acetaminophen and tramadol. SHE REPORTS HER PAIN IS WELL CONTROLLED Orthostatic hypotension noted 12/03/2017. She was primarily orthostatic by heart rate rather than blood pressure. Thigh-high OZIEL hose and abdominal binder have been initiated. With improved p.o. Intake she may not need these interventions. Continue to monitor. HAVE ASKED NURSE TO CHECK URINE TO SEE IF IT IS CONCENTRATED. WILL OBTAIN BMP FOR TOMORROW MORNING Insomnia. Improved with trazodone. Depression versus adjustment disorder with depressed mood. Often tearful through the day per nursing. * Initiated citalopram 20 mg q.day starting 12/05/2017. PATIENT WAS TEARFUL DURING THIS MORNING'S ROUNDS. SHE STATES THAT SHE CANNOT TELL OF THE CITALOPRAM IS HELPING * Continue therapy per WOOD TYPE FINISHER. * CONSIDER PSYCHIATRY CONSULT TO HELP MANAGE DEPRESSION. WILL [facility] CONSULT TOMORROW Constipation. NURSING REPORTS PATIENT HAD 1 BOWEL MOVEMENT YESTERDAY AND 1 TODAY. Recent diagnosis of asthma. Continue the Breo Ellipta as well as the p.r.n. albuterol inhaler and nebulizer. She will have incentive spirometry. She will have oxygen as needed. Possible rheumatoid arthritis by history. Appears to be asymptomatic and doubt any exacerbation would be likely while she is on the dexamethasone taper. Renal cyst, likely benign. Any further investigation is postponed until recovery from the craniotomy. Labs have been drawn and sent to determine if she has a genetic mutation consistent with von Hippel-Lindau syndrome. Prophylaxis. She has ambulated more than 200 feet in the hospital and she does not have hemiparesis. Has not ambulated further than 15 ft in the past 2 days on inpatient rehabilitation, largely due to fatigue. If ambulation remains very limited, will need to initiate pharmacologic prophylaxis. She will have sequential compression devices. DISPOSITION: Lives with her at home in [place]. It is a multilevel home with stairs that she must negotiate indoors, and 3 steps to enter. Cognitive status needs to improve significantly for her to be left alone at all at home, and she needs to be safe on stairs. Continue discharge date for 2017. Followup. Primary care provider is Dr. Haroon Silva in [place], [place]. Will need to have further discussion with the Neurosurgery and Hematology/Oncology services regarding what followup might be indicated Plan: 12/07/17 10:01 12/08/17 10:49 Subjective: PATIENT REPORTED TO NURSING STAFF ON MULTIPLE OCCASIONS THAT SHE WANTED TO GO HOME. SHE STATED THIS AGAIN THIS MORNING. SHE ALSO STATES THAT SHE IS DEPRESSED. Objective: Vital Signs Temp Pulse Resp BP Pulse Ox 36.6 C 58 L 16 104/63 95 12/08/17 06:48 12/08/17 10:04 12/08/17 06:48 12/08/17 10:04 12/08/17 06:48 12/07/17 12/08/17 12/09/17 05:59 05:59 05:59 Intake Total 700 1900 Balance 700 1900 Physical Exam - Physical Exam General Appearance: WD/WN, alert, other (TEARFUL DURING EXAM.) Respiratory: lungs clear, normal breath sounds Abdomen: normal bowel sounds, non-tender, soft Extremities: No swelling, No Srinivasa's sign Neuro/Psych: depressed affect ICD10 Worksheet Patient Problems: Problems Problem Status Onset Brain tumor Acute
[2017-12-08] MEDS: traZODone 50 MG TAB PO SCH (21:28)
[2017-12-09] MEDS: ACETAMINOPHEN 325 MG TAB PO PRN (08:09)
[2017-12-09] MEDS: SENNOSIDES 1 TAB PO SCH ×2 (08:10→20:44)
[2017-12-09] MEDS: CITALOPRAM 20 MG TAB PO SCH (08:10)
[2017-12-09] MEDS: FAMOTIDINE 20 MG TAB PO SCH ×2 (08:10→20:44)
[2017-12-09] MEDS: POLYETHYLENE GLYCOL 3350 17 GM PKT PO SCH (08:10)
[2017-12-09] MEDS: EPA PO SCH ×2 (08:13→20:45)
[2017-12-09] MEDS: PHOSPSERIN PO SCH ×2 (08:13→20:45)
[2017-12-09] MEDS: DHA PO SCH ×2 (08:13→20:45)
[2017-12-09] MEDS: Fluticasone/Vilanterol [Breo Ellipta 100-25 Mcg Inh] 1 EACH IH SCH (08:13)
[2017-12-09] MEDS: OMEGA PO SCH ×2 (08:13→20:45)
[2017-12-09] MEDS: [UNRECOGNIZED DRUG - OTHER] PO SCH ×2 (08:14→20:46)
[2017-12-09] MEDS: Meloxicam [Meloxicam] 15 MG PO SCH (08:14)
[2017-12-09] MEDS: ESTRADIOL VIVELLE 0.025 MG PATCH TD SCH (09:17)
[2017-12-09] MEDS: LUBIPROSTONE 8 MCG CAP PO SCH ×2 (09:18→21:01)
--- NOTE | 2017-12-09 11:55 | SOAPPROG ---
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 * Initial functional independence measure is 52 on 11/28/2017, improved to 64 as of 12/04/2017. Minimal assist for mobility. Ambulated 150 ft with a front wheeled walker and minimal assist. Needs cues to maintain focus. Grooming and hygiene are done seated with standby assist. Upper body dressing requires standby assist, lower body dressing requires contact guard assist for dressing. Bath transfer requires contact guard to minimal assist and bathing is done with contact guard were standby assist. Toilet transfer requires contact guard to minimal assist and toileting with contact guard assist. She has right upper extremity ataxia and she tends to have loss of balance to the right. Complaint of diplopia is inconsistent. * Continue PT and OT to optimize mobility and activities of daily living towards the independent to modified independent level and needing only close contact guard assist for ambulation. Cognitive and communication deficits. * Deficits to attention, executive function, memory, orientation, problem solving and reasoning. Worse with cognitive fatigue. * 0L0G 13/30 on 11/28/2017. * Receptive aphasia is improving and she is more participatory. Still has paraphasic errors and language of confusion. * Discussed with Neurosurgery KALEE Reagan, 12/04/2017. She reports that the surgeons (Stacie and Miki) were expecting aphasia due to cerebellar lesion. * Continue Speech and Language Pathology. Hydrocephalus status post endoventricular drain placement and removal. She is on dexamethasone on a taper to reduce brain swelling. She will be monitored closely for any signs or symptoms of recurrent hydrocephalus. NO CONFUSION. NO CHANGE IN SPEECH. NO REPORTED ATAXIA Postoperative pain management. Using meloxicam and acetaminophen. Not using other medications ordered out of the hospital: oxycodone/acetaminophen and tramadol. SHE REPORTS HER PAIN IS WELL CONTROLLED Orthostatic hypotension noted 12/03/2017. She was primarily orthostatic by heart rate rather than blood pressure. Thigh-high OZIEL hose and abdominal binder have been initiated. With improved p.o. Intake she may not need these interventions. Continue to monitor. PATIENT REPORTS SHE FEELS SOMEWHAT LIGHTHEADED WHEN SHE GOES FROM SIT TO STAND AND BECAME SLIGHTLY LIGHTHEADED DURING THERAPY TODAY. OFFERED POSSIBILITY OF INITIATING MIDODRINE HOWEVER PATIENT STATED THAT SHE FEELS THAT SHE IS ALREADY ON TOO MANY MEDICATIONS Insomnia. Improved with trazodone. Depression versus adjustment disorder with depressed mood. Often tearful through the day per nursing. * Initiated citalopram 20 mg q.day starting 12/05/2017. PATIENT WAS TEARFUL DURING THIS MORNING'S ROUNDS. SHE STATES THAT SHE CANNOT TELL OF THE CITALOPRAM IS HELPING * Continue therapy per LOAN REVIEWER. * CONSIDER PSYCHIATRY CONSULT TO HELP MANAGE DEPRESSION. WILL [facility] CONSULT TOMORROW Constipation. SHE HAD 3 BOWEL MOVEMENTS OVER THE WEEKEND. CONTINUE TO MONITOR. Recent diagnosis of asthma. Continue the Breo Ellipta as well as the p.r.n. albuterol inhaler and nebulizer. She will have incentive spirometry. She will have oxygen as needed. Possible rheumatoid arthritis by history. Appears to be asymptomatic and doubt any exacerbation would be likely while she is on the dexamethasone taper. Renal cyst, likely benign. Any further investigation is postponed until recovery from the craniotomy. Labs have been drawn and sent to determine if she has a genetic mutation consistent with von Hippel-Lindau syndrome. Prophylaxis. She has ambulated more than 200 feet in the hospital and she does not have hemiparesis. Has not ambulated further than 15 ft in the past 2 days on inpatient rehabilitation, largely due to fatigue. If ambulation remains very limited, will need to initiate pharmacologic prophylaxis. She will have sequential compression devices. DISPOSITION: Lives with her at home in [place]. It is a multilevel home with stairs that she must negotiate indoors, and 3 steps to enter. Cognitive status needs to improve significantly for her to be left alone at all at home, and she needs to be safe on stairs. Continue discharge date for 2017. Followup. Primary care provider is Dr. Haroon Silva in [place], [place]. Will need to have further discussion with the Neurosurgery and Hematology/Oncology services regarding what followup might be indicated Subjective: PATIENT REPORTS SHE DID FEEL SOMEWHAT LIGHTHEADED WITH GOING FROM SIT TO STAND. SHE DOES NOT WISH TO TAKE MEDICATIONS TO ADDRESS THIS. Objective: Vital Signs Temp Pulse Resp BP Pulse Ox 37.0 C 53 L 14 94/62 L 91 L 12/09/17 06:23 12/09/17 06:23 12/09/17 06:23 12/09/17 06:23 12/09/17 06:23 12/08/17 12/09/17 12/10/17 05:59 05:59 05:59 Intake Total 1900 1340 440 Output Total 900 100 Balance 1900 440 340 Physical Exam - Physical Exam General Appearance: WD/WN, alert, no apparent distress Respiratory: lungs clear, normal breath sounds Cardiac/Chest: No edema Abdomen: non-tender, soft Skin: normal color Extremities: No swelling, No Srinivasa's sign Neuro/Psych: depressed affect ICD10 Worksheet Patient Problems: Problems Problem Status Onset Brain tumor Acute
[2017-12-09] MEDS: traZODone 50 MG TAB PO SCH (20:44)
[2017-12-10] MEDS: DHA PO SCH ×2 (08:53→20:36)
[2017-12-10] MEDS: [UNRECOGNIZED DRUG - OTHER] PO SCH ×2 (08:53→20:36)
[2017-12-10] MEDS: EPA PO SCH ×2 (08:53→20:36)
[2017-12-10] MEDS: PHOSPSERIN PO SCH ×2 (08:53→20:36)
[2017-12-10] MEDS: FAMOTIDINE 20 MG TAB PO SCH ×2 (08:53→20:35)
[2017-12-10] MEDS: POLYETHYLENE GLYCOL 3350 17 GM PKT PO SCH (08:53)
[2017-12-10] MEDS: OMEGA PO SCH ×2 (08:53→20:36)
[2017-12-10] MEDS: CITALOPRAM 20 MG TAB PO SCH (08:53)
[2017-12-10] MEDS: Meloxicam [Meloxicam] 15 MG PO SCH (08:54)
[2017-12-10] MEDS: Fluticasone/Vilanterol [Breo Ellipta 100-25 Mcg Inh] 1 EACH IH SCH (08:55)
[2017-12-10] MEDS: LUBIPROSTONE 8 MCG CAP PO SCH ×2 (08:57→20:36)
[2017-12-10] MEDS: SENNOSIDES 1 TAB PO SCH ×2 (09:11→20:35)
--- NOTE | 2017-12-10 11:43 | SOAPPROG ---
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 * Initial functional independence measure is 52 on 11/28/2017, improved to 64 as of 12/04/2017. Minimal assist for mobility. Ambulated 150 ft with a front wheeled walker and minimal assist. Needs cues to maintain focus. Grooming and hygiene are done seated with standby assist. Upper body dressing requires standby assist, lower body dressing requires contact guard assist for dressing. Bath transfer requires contact guard to minimal assist and bathing is done with contact guard were standby assist. Toilet transfer requires contact guard to minimal assist and toileting with contact guard assist. She has right upper extremity ataxia and she tends to have loss of balance to the right. Complaint of diplopia is inconsistent. * Continue PT and OT to optimize mobility and activities of daily living towards the independent to modified independent level and needing only close contact guard assist for ambulation. Cognitive and communication deficits. * Deficits to attention, executive function, memory, orientation, problem solving and reasoning. Worse with cognitive fatigue. * 0L0G /30 on 11/28/2017. * Receptive aphasia is improving and she is more participatory. Still has paraphasic errors and language of confusion. * Discussed with Neurosurgery KALEE Reagan, 12/04/2017. She reports that the surgeons (Stacie and Miki) were expecting aphasia due to cerebellar lesion. * Continue Speech and Language Pathology. Hydrocephalus status post endoventricular drain placement and removal. She is on dexamethasone on a taper to reduce brain swelling. She will be monitored closely for any signs or symptoms of recurrent hydrocephalus. NO CONFUSION. NO CHANGE IN SPEECH. NO REPORTED ATAXIA Postoperative pain management. Using meloxicam and acetaminophen. Not using other medications ordered out of the hospital: oxycodone/acetaminophen and tramadol. SHE REPORTS HER PAIN IS WELL CONTROLLED Orthostatic hypotension noted 12/03/2017. WILL BEGIN MIDODRINE 5 MG THREE TIMES DAILY. REVIEWED WITH PATIENT THAT HER THERAPIST OR REPORTING THAT ORTHOSTATIC HYPERTENSION IS INTERFERING WITH HER PROGRESS IN THERAPIES. NORMALIZED HER BLOOD PRESSURE MAY ALSO HELP IMPROVE HER COGNITION . CONTINUE WEARING OZIEL HOSE AND ABDOMINAL BINDER. Insomnia. Improved with trazodone. Depression versus adjustment disorder with depressed mood. Often tearful through the day per nursing. * Initiated citalopram 20 mg q.day starting 12/05/2017. PATIENT WAS TEARFUL DURING THIS MORNING'S ROUNDS. SHE STATES THAT SHE CANNOT TELL OF THE CITALOPRAM IS HELPING * Continue therapy per AUTO FORMER MACHINE OPERATOR. * CONSIDER PSYCHIATRY CONSULT TO HELP MANAGE DEPRESSION. WILL [facility] CONSULT TOMORROW Constipation. SHE HAD 3 BOWEL MOVEMENTS OVER THE WEEKEND. CONTINUE TO MONITOR. Recent diagnosis of asthma. Continue the Breo Ellipta as well as the p.r.n. albuterol inhaler and nebulizer. She will have incentive spirometry. She will have oxygen as needed. Possible rheumatoid arthritis by history. Appears to be asymptomatic and doubt any exacerbation would be likely while she is on the dexamethasone taper. Renal cyst, likely benign. Any further investigation is postponed until recovery from the craniotomy. Labs have been drawn and sent to determine if she has a genetic mutation consistent with von Hippel-Lindau syndrome. Prophylaxis. She has ambulated more than 200 feet in the hospital and she does not have hemiparesis. Has not ambulated further than 15 ft in the past 2 days on inpatient rehabilitation, largely due to fatigue. If ambulation remains very limited, will need to initiate pharmacologic prophylaxis. She will have sequential compression devices. DISPOSITION: Lives with her at home in [place]. It is a multilevel home with stairs that she must negotiate indoors, and 3 steps to enter. Cognitive status needs to improve significantly for her to be left alone at all at home, and she needs to be safe on stairs. Continue discharge date for 2017. Followup. Primary care provider is Dr. Haroon Silva in [place], [place]. Will need to have further discussion with the Neurosurgery and Hematology/Oncology services regarding what followup might be indicated 12/10/17 11:40 Subjective: PATIENT REPORTS SHE FEELS MUCH MORE ALERT TODAY AND HER STATES THAT HER MEMORY IS BEGINNING TO RETURN. THERAPY STAFF INDICATES THAT SHE IS NOTED TO BE ORTHOSTATIC DURING THERAPY SESSIONS AND MOST LIKELY WOULD BENEFIT FROM MIDODRINE Objective: Vital Signs Temp Pulse Resp BP Pulse Ox 37.0 C 69 16 95/64 L 93 12/10/17 08:48 12/10/17 08:48 12/10/17 08:48 12/10/17 08:48 12/10/17 08:48 12/09/17 12/10/17 12/11/17 05:59 05:59 05:59 Intake Total 1340 1840 Output Total 900 1150 300 Balance 440 690 -300 Physical Exam - Physical Exam General Appearance: WD/WN, alert, other (MUCH MORE CHEERFUL AND CONVERSIVE TODAY ) Neck: supple Respiratory: chest non-tender, lungs clear, normal breath sounds Cardiac/Chest: No edema Abdomen: normal bowel sounds, non-tender, soft Skin: warm/dry Neuro/Psych: alert, normal mood/affect, motor weakness (TRUNK WEAKNESS AND LOWER EXTREMITY WEAKNESS NOTED.) ICD10 Worksheet Patient Problems: Problems Problem Status Onset Brain tumor Acute
[2017-12-10] MEDS: MIDODRINE HCL 5 MG TAB PO SCH ×2 (12:14→16:18)
[2017-12-10] MEDS: traZODone 50 MG TAB PO SCH (20:36)
[2017-12-11] MEDS: POLYETHYLENE GLYCOL 3350 17 GM PKT PO SCH (08:04)
[2017-12-11] MEDS: MIDODRINE HCL 5 MG TAB PO SCH ×3 (08:04→17:08)
[2017-12-11] MEDS: CITALOPRAM 20 MG TAB PO SCH (08:06)
[2017-12-11] MEDS: SENNOSIDES 1 TAB PO SCH ×2 (08:06→21:13)
[2017-12-11] MEDS: LUBIPROSTONE 8 MCG CAP PO SCH ×2 (08:08→21:07)
[2017-12-11] MEDS: Meloxicam [Meloxicam] 15 MG PO SCH (08:08)
[2017-12-11] MEDS: [UNRECOGNIZED DRUG - OTHER] PO SCH ×2 (08:10→21:07)
[2017-12-11] MEDS: EPA PO SCH ×2 (08:11→21:07)
[2017-12-11] MEDS: DHA PO SCH ×2 (08:11→21:07)
[2017-12-11] MEDS: PHOSPSERIN PO SCH ×2 (08:11→21:07)
[2017-12-11] MEDS: FAMOTIDINE 20 MG TAB PO SCH (08:11)
[2017-12-11] MEDS: OMEGA PO SCH ×2 (08:11→21:07)
[2017-12-11] MEDS: Fluticasone/Vilanterol [Breo Ellipta 100-25 Mcg Inh] 1 EACH IH SCH (08:47)
--- NOTE | 2017-12-11 12:25 | SOAPPROG ---
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 * Initial functional independence measure is 52 on 11/28/2017, improved to 64 as of 12/04/2017, then 272 as of 12/11/2017. Standby assist for bed mobility, transfers with contact guard assist with or without a front wheeled walker, walked 200 ft with contact guard to minimal assist with a front wheeled walker or a 4 wheeled walker. She has no occasional right lateral lean. She climbed 3 stairs with bilateral rails contact guard assist. She does grooming and hygiene with standby assist. Upper and lower body dressing require supervision and setup. Bath and toilet transfers required contact guard assist to standby assist. Toileting is done with standby assist and bathing with supervision. She has slow visual processing. * Continue PT and OT to optimize mobility and activities of daily living towards the independent to modified independent level and needing only close contact guard assist for ambulation. Cognitive and communication deficits. * Deficits to attention, executive function, memory, orientation, problem solving and reasoning. Worse with cognitive fatigue. * 0L0G 13/30 on 11/28/2017. 23 and 24/30 on 12/09/2017 and 12/10/2017. * Still has decreased recall and decreased attention. Also noted is decreased word retrieval. * Discussed with Neurosurgery KALEE Reagan, 12/04/2017. She reports that the surgeons (Stacie and Miki) were expecting aphasia due to cerebellar lesion. * Continue Speech and Language Pathology. Hydrocephalus status post endoventricular drain placement and removal. * Dexamethasone taper completed 12/05/2017. No signs or symptoms of recurrent hydrocephalus. Postoperative pain management. Using meloxicam. * Discussed desire to reduce medications. Will discontinue meloxicam as well as famotidine starting 12/11/2017. Use acetaminophen for headaches. Orthostatic hypotension noted 12/03/2017. She was primarily orthostatic by heart rate rather than blood pressure. Thigh-high OZIEL hose and abdominal binder have been initiated. * Was orthostatic on 12/08/2017 despite abdominal binder and Oziel hose. * Citalopram may contribute. Will discontinue starting 12/12/2017. Insomnia. Improved with trazodone. Depression versus adjustment disorder with depressed mood. Often tearful through the day per nursing. * Initiated citalopram 20 mg q.day starting 12/05/2017. Discontinue per her request starting 12/12/2017. * Continue therapy per FAMILY RESOURCE MANAGEMENT SPECIALIST. Constipation. * Dulcolax suppository today, 12/06/2017. * Schedule laxatives beginning 12/06/2017. * Best response to lubiprostone. Chronic constipation prior to hospitalization. Will continue senna, polyethylene glycol and living prostate own while she is in the rehabilitation unit. Recent diagnosis of asthma. Continue the Breo Ellipta as well as the p.r.n. albuterol inhaler and nebulizer. She will have incentive spirometry. She will have oxygen as needed. Possible rheumatoid arthritis by history. Appears to be asymptomatic and doubt any exacerbation would be likely while she is on the dexamethasone taper. Renal cyst, likely benign. Any further investigation is postponed until recovery from the craniotomy. Negative for genetic mutation consistent with von Hippel-Lindau syndrome. Prophylaxis. She has ambulated more than 200 feet in the hospital and she does not have hemiparesis. Has not ambulated further than 15 ft in the past 2 days on inpatient rehabilitation, largely due to fatigue. If ambulation remains very limited, will need to initiate pharmacologic prophylaxis. She will have sequential compression devices. DISPOSITION: Attended staffing, 15 min. Discussed with case management, dietitian, nursing, PT, OT, SL P. Attended family meeting, 30 min, sister and participating. Lives with her at home in [place]. It is a multilevel home with stairs that she must negotiate indoors, and 3 steps to enter. Cognitive status needs to improve significantly for her to be left alone at all at home, and she needs to be safe on stairs. Continue discharge date for 12/19/2017. Followup. Primary care provider is Dr. Haroon Silva in [place], [place]. Will need to have further discussion with the Neurosurgery and Hematology/Oncology services regarding what followup might be indicated 12/11/17 12:16 Subjective: Feeling better. Has occasional headache. Reports that she had chronic constipation prior to her hospitalization with bowel movements as infrequently as once every 2 weeks. No cough or dyspnea, no fevers or chills. Objective: Vital Signs Temp Pulse Resp BP Pulse Ox 37.2 C 61 16 101/64 92 12/11/17 07:02 12/11/17 07:02 12/11/17 07:02 12/11/17 07:02 12/11/17 07:02 12/10/17 12/11/17 12/12/17 05:59 05:59 05:59 Intake Total 1840 580 Output Total 1150 300 Balance 690 280 - Time Spent With Patient Time Spent With Patient: Greater than 35 min floor time today, including more than 50% of time in coordination of care during staffing meeting, and counseling patient and family during family meeting. Physical Exam - Physical Exam General Appearance: WD/WN, alert, no apparent distress Respiratory: normal breath sounds, No crackles, No rhonchi, No wheezing Cardiac/Chest: regular rate, rhythm, No edema, No JVD, No diastolic murmur, No systolic murmur Skin: normal color, warm/dry Neuro/Psych: alert, normal mood/affect ICD10 Worksheet Patient Problems: Problems Problem Status Onset Brain tumor Acute
[2017-12-11] MEDS: traZODone 50 MG TAB PO SCH (21:07)
[2017-12-12] MEDS: ACETAMINOPHEN 325 MG TAB PO PRN ×2 (07:30→21:07)
[2017-12-12] MEDS: MIDODRINE HCL 5 MG TAB PO SCH ×3 (07:32→16:53)
[2017-12-12] MEDS: SENNOSIDES 1 TAB PO SCH (07:52)
[2017-12-12] MEDS: EPA PO SCH ×3 (08:43→21:10)
[2017-12-12] MEDS: DHA PO SCH ×3 (08:43→21:10)
[2017-12-12] MEDS: OMEGA PO SCH ×3 (08:43→21:10)
[2017-12-12] MEDS: PHOSPSERIN PO SCH ×3 (08:43→21:10)
[2017-12-12] MEDS: [UNRECOGNIZED DRUG - OTHER] PO SCH ×3 (08:44→21:10)
[2017-12-12] MEDS: Fluticasone/Vilanterol [Breo Ellipta 100-25 Mcg Inh] 1 EACH IH SCH (08:45)
[2017-12-12] MEDS: LUBIPROSTONE 8 MCG CAP PO SCH ×2 (08:45→20:47)
[2017-12-12] MEDS: ESTRADIOL VIVELLE 0.025 MG PATCH TD SCH (08:46)
[2017-12-12] MEDS: POLYETHYLENE GLYCOL 3350 17 GM PKT PO SCH (08:50)
[2017-12-12] MEDS ORDERED: SENNOSIDES 1 TAB PO PRN (12:09)
--- NOTE | 2017-12-12 12:28 | SOAPPROG ---
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 * Initial functional independence measure is 52 on 11/28/2017, improved to 64 as of 12/04/2017, then 72 as of 12/11/2017. Standby assist for bed mobility, transfers with contact guard assist with or without a front wheeled walker, walked 200 ft with contact guard to minimal assist with a front wheeled walker or a 4 wheeled walker. She has occasional right lateral lean. She climbed 3 stairs with bilateral rails contact guard assist. She does grooming and hygiene with standby assist. Upper and lower body dressing require supervision and setup. Bath and toilet transfers required contact guard assist to standby assist. Toileting is done with standby assist and bathing with supervision. She has slow visual processing. * Continue PT and OT to optimize mobility and activities of daily living towards the independent to modified independent level and needing only close contact guard assist for ambulation. Cognitive and communication deficits. * Deficits to attention, executive function, memory, orientation, problem solving and reasoning. Worse with cognitive fatigue. * 0L0G 13/30 on 11/28/2017. 23 and 24/30 on 12/09/2017 and 12/10/2017. * Still has decreased recall and decreased attention. Also noted is decreased word retrieval. * Discussed with Neurosurgery KALEE Reagan, 12/04/2017. She reports that the surgeons (Stacie and Miki) were expecting aphasia due to cerebellar lesion. * Continue Speech and Language Pathology. Hydrocephalus status post endoventricular drain placement and removal. * Dexamethasone taper completed 12/05/2017. No signs or symptoms of recurrent hydrocephalus. Postoperative pain management. Using meloxicam. * Discussed desire to reduce medications. Will discontinue meloxicam as well as famotidine starting 12/11/2017. Use acetaminophen for headaches. * Had headache overnight, 12/11-12/12/2017, possibly due to discontinuation of meloxicam. Continue to monitor, consider scheduling acetaminophen, consider initiating headache prophylactic. Orthostatic hypotension noted 12/03/2017. She was primarily orthostatic by heart rate rather than blood pressure. Thigh-high OZIEL hose and abdominal binder have been initiated. * Was orthostatic on 12/08/2017 despite abdominal binder and Oziel hose. * Citalopram may contribute. Discontinued starting 12/12/2017. * Recheck orthostatics in a.m. Of 12/13/2017 before receiving midodrine and without abdominal binder and OZIEL hose. Insomnia. Improved with trazodone. Depression versus adjustment disorder with depressed mood. Often tearful through the day per nursing. * Initiated citalopram 20 mg q.day starting 12/05/2017. Discontinued per her request starting 12/12/2017. * Continue therapy as needed per CLINIC LEAD. Constipation. * Dulcolax suppository today, 12/06/2017. * Scheduled laxatives beginning 12/06/2017. * Best response to lubiprostone. Chronic constipation prior to hospitalization. Discontinue senna and polyethylene glycol 12/12/2017 due to extra for bowel movement. Continue lubiprostone while she is in the rehabilitation unit. Recent diagnosis of asthma. Continue the Breo Ellipta as well as the p.r.n. albuterol inhaler and nebulizer. She will have incentive spirometry. She will have oxygen as needed. Possible rheumatoid arthritis by history. Appears to be asymptomatic and doubt any exacerbation would be likely while she is on the dexamethasone taper. Renal cyst, likely benign. Any further investigation is postponed until recovery from the craniotomy. Negative for genetic mutation consistent with von Hippel-Lindau syndrome. Prophylaxis. She has ambulated more than 200 feet in the hospital and she does not have hemiparesis. Has not ambulated further than 15 ft in the past 2 days on inpatient rehabilitation, largely due to fatigue. If ambulation remains very limited, will need to initiate pharmacologic prophylaxis. She will have sequential compression devices. DISPOSITION: Lives with her at home in [place]. It is a multilevel home with stairs that she must negotiate indoors, and 3 steps to enter. Cognitive status needs to improve significantly for her to be left alone at all at home, and she needs to be safe on stairs. Continue discharge date for 2017. Followup. Primary care provider is Dr. Haroon Silva in [place], [place]. Will need to have further discussion with the Neurosurgery and Hematology/Oncology services regarding what followup might be indicated 12/12/17 12:13 Subjective: Reports poor sleep last night. Says she had a headache on the left side of her head from around her IIA over the frontal and parietal area and towards the back of her head, at about 130, which then interfered with her sleep the rest of the night. It was not pounding. She had no associated nausea. Nurse reports multiple bowel movements, 3 yesterday and 1 today. OT reports that she had dizziness when standing up this morning before receiving midodrin. She had her abdominal binder on but no OZIEL hose. Objective: Vital Signs Temp Pulse Resp BP Pulse Ox 36.7 C 82 17 108/67 94 12/12/17 07:27 12/12/17 07:27 12/12/17 07:27 12/12/17 07:27 12/12/17 07:27 12/11/17 12/12/17 12/13/17 05:59 05:59 05:59 Intake Total 580 1110 360 Output Total 300 Balance 280 1110 360 Physical Exam - Physical Exam General Appearance: WD/WN, alert, no apparent distress Respiratory: normal breath sounds, No crackles, No rhonchi, No wheezing Cardiac/Chest: regular rate, rhythm, No edema, No diastolic murmur, No systolic murmur Skin: normal color, warm/dry Neuro/Psych: alert, normal mood/affect, oriented x 3, other (No pronator drift) ICD10 Worksheet Patient Problems: Problems Problem Status Onset Brain tumor Acute
[2017-12-12] MEDS: traZODone 50 MG TAB PO SCH ×2 (20:00→21:10)
[2017-12-13] MEDS: MIDODRINE HCL 5 MG TAB PO SCH ×3 (08:09→16:50)
[2017-12-13] MEDS: [UNRECOGNIZED DRUG - OTHER] PO SCH ×2 (08:34→20:42)
[2017-12-13] MEDS: DHA PO SCH ×2 (08:35→20:43)
[2017-12-13] MEDS: EPA PO SCH ×2 (08:35→20:43)
[2017-12-13] MEDS: OMEGA PO SCH ×2 (08:35→20:43)
[2017-12-13] MEDS: PHOSPSERIN PO SCH ×2 (08:35→20:43)
[2017-12-13] MEDS: LUBIPROSTONE 8 MCG CAP PO SCH (08:36)
[2017-12-13] MEDS: Fluticasone/Vilanterol [Breo Ellipta 100-25 Mcg Inh] 1 EACH IH SCH (08:39)
--- NOTE | 2017-12-13 14:48 | SOAPPROG ---
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 * Initial functional independence measure is 52 on 11/28/2017, improved to 64 as of 12/04/2017, then 72 as of 12/11/2017. Standby assist for bed mobility, transfers with contact guard assist with or without a front wheeled walker, walked 200 ft with contact guard to minimal assist with a front wheeled walker or a 4 wheeled walker. She has occasional right lateral lean. She climbed 3 stairs with bilateral rails contact guard assist. She does grooming and hygiene with standby assist. Upper and lower body dressing require supervision and setup. Bath and toilet transfers required contact guard assist to standby assist. Toileting is done with standby assist and bathing with supervision. She has slow visual processing. * Continue PT and OT to optimize mobility and activities of daily living towards the independent to modified independent level and needing only close contact guard assist for ambulation. Cognitive and communication deficits. * Deficits to attention, executive function, memory, orientation, problem solving and reasoning. Worse with cognitive fatigue. * 0L0G 13/30 on 11/28/2017. 23 and 24/30 on 12/09/2017 and 12/10/2017. * Still has decreased recall and decreased attention. Also noted is decreased word retrieval. * Discussed with Neurosurgery KALEE Reagan, 12/04/2017. She reports that the surgeons (Stacie and Miki) were expecting aphasia due to cerebellar lesion. * Continue Speech and Language Pathology. Hydrocephalus status post endoventricular drain placement and removal. * Dexamethasone taper completed 12/05/2017. No signs or symptoms of recurrent hydrocephalus. Postoperative pain management. Using meloxicam. * Discussed desire to reduce medications. Will discontinue meloxicam as well as famotidine starting 12/11/2017. Use acetaminophen for headaches. * Had headache overnight, 12/11-12/12/2017, possibly due to discontinuation of meloxicam. Continue to monitor, consider scheduling acetaminophen, consider initiating headache prophylactic. Orthostatic hypotension noted 12/03/2017. She was primarily orthostatic by heart rate rather than blood pressure. Thigh-high OZIEL hose and abdominal binder have been initiated. * Was orthostatic on 12/08/2017 despite abdominal binder and Oziel hose. * Citalopram may contribute. Discontinued starting 12/12/2017. * No orthostatic morning of 12/13/2017 before receiving midodrine and without abdominal binder and OZIEL hose. * Symptoms after breakfast may be due to UB prostate own verses splanchnic pooling of blood due to digestion. Insomnia. Improved with trazodone. Depression versus adjustment disorder with depressed mood. Often tearful through the day per nursing. * Initiated citalopram 20 mg q.day starting 12/05/2017. Discontinued per her request starting 12/12/2017. * Continue therapy as needed per PATCH WORKER. Constipation. * Dulcolax suppository today, 12/06/2017. * Scheduled laxatives beginning 12/06/2017. * Best response to lubiprostone. Chronic constipation prior to hospitalization with bowel movement as infrequently as every 2 weeks. Discontinued senna and polyethylene glycol 12/12/2017 due to extra for bowel movement. * Discontinue new prostate own 12/14/2017 due to morning nausea and lightheadedness. Resume senna and polyethylene glycol. Monitor for resolution of symptoms and for continued bowel movements. Recent diagnosis of asthma. Continue the Breo Ellipta as well as the p.r.n. albuterol inhaler and nebulizer. She will have incentive spirometry. She will have oxygen as needed. Possible rheumatoid arthritis by history. Appears to be asymptomatic and doubt any exacerbation would be likely while she is on the dexamethasone taper. Renal cyst, likely benign. Any further investigation is postponed until recovery from the craniotomy. Negative for genetic mutation consistent with von Hippel-Lindau syndrome. Prophylaxis. She has ambulated more than 200 feet in the hospital and she does not have hemiparesis. Has not ambulated further than 15 ft in the past 2 days on inpatient rehabilitation, largely due to fatigue. If ambulation remains very limited, will need to initiate pharmacologic prophylaxis. She will have sequential compression devices. DISPOSITION: Lives with her at home in [place]. It is a multilevel home with stairs that she must negotiate indoors, and 3 steps to enter. Cognitive status needs to improve significantly for her to be left alone at all at home, and she needs to be safe on stairs. Continue discharge date for 2017. Followup. Primary care provider is Dr. Haroon Silva in [place], [place]. Will need to have further discussion with the Neurosurgery and Hematology/Oncology services regarding what followup might be indicated 12/13/17 14:45 Subjective: Had episode of lightheadedness after breakfast this morning and lay down. Sensation eventually passed. She also had nausea. However this morning upon arising, prior to OZIEL hose, abdominal binder and midodrine, she was not orthostatic by blood pressure or pulse. Objective: Vital Signs Temp Pulse Resp BP Pulse Ox 37.0 C 62 16 94/55 L 91 L 12/13/17 06:55 12/13/17 10:16 12/13/17 10:16 12/13/17 10:16 12/13/17 10:16 12/12/17 12/13/17 12/14/17 05:59 05:59 05:59 Intake Total 1110 840 500 Balance 1110 840 500 Physical Exam - Physical Exam General Appearance: WD/WN, alert, no apparent distress Respiratory: normal breath sounds, No crackles, No rhonchi, No wheezing Cardiac/Chest: regular rate, rhythm, No edema, No JVD, No diastolic murmur, No systolic murmur Skin: normal color, warm/dry Neuro/Psych: alert, normal mood/affect, oriented x 3, abnormal gait (Foot drag and reduced swing on right leg. Using front wheeled walker. Contact guard assist per staff.) ICD10 Worksheet Patient Problems: Problems Problem Status Onset Brain tumor Acute
[2017-12-13] MEDS: CALCIUM CARBONATE 500 MG CHEWABLE TAB PO PRN ×2 (16:50→19:14)
[2017-12-13] MEDS: SENNOSIDES 1 TAB PO SCH (20:42)
[2017-12-13] MEDS: traZODone 50 MG TAB PO SCH (20:42)
[2017-12-14] MEDS: ACETAMINOPHEN 325 MG TAB PO PRN ×2 (07:23→21:57)
[2017-12-14] MEDS: MIDODRINE HCL 5 MG TAB PO SCH ×3 (07:26→16:50)
[2017-12-14] MEDS: PHOSPSERIN PO SCH ×2 (08:54→20:57)
[2017-12-14] MEDS: EPA PO SCH ×2 (08:54→20:57)
[2017-12-14] MEDS: Fluticasone/Vilanterol [Breo Ellipta 100-25 Mcg Inh] 1 EACH IH SCH (08:54)
[2017-12-14] MEDS: OMEGA PO SCH ×2 (08:54→20:57)
[2017-12-14] MEDS: [UNRECOGNIZED DRUG - OTHER] PO SCH ×2 (08:54→20:57)
[2017-12-14] MEDS: DHA PO SCH ×2 (08:54→20:57)
[2017-12-14] MEDS: POLYETHYLENE GLYCOL 3350 17 GM PKT PO SCH (08:55)
[2017-12-14] MEDS: SENNOSIDES 1 TAB PO SCH ×2 (08:55→20:52)
--- NOTE | 2017-12-14 13:58 | HOSPPROG ---
Hospitalist Progress Note Assessment/Plan: Debility with balance impairment, reduced mobility and need for assistance with an ADLs, status post craniotomy on 11/12/2017 and excision of a cerebellar hemangioblastoma. * Initial functional independence measure is 52 on 11/28/2017, improved to 64 as of 12/04/2017, then 72 as of 12/11/2017. Standby assist for bed mobility, transfers with contact guard assist with or without a front wheeled walker, walked 200 ft with contact guard to minimal assist with a front wheeled walker or a 4 wheeled walker. She has occasional right lateral lean. She climbed 3 stairs with bilateral rails contact guard assist. She does grooming and hygiene with standby assist. Upper and lower body dressing require supervision and setup. Bath and toilet transfers required contact guard assist to standby assist. Toileting is done with standby assist and bathing with supervision. She has slow visual processing. * Continue PT and OT to optimize mobility and activities of daily living towards the independent to modified independent level and needing only close contact guard assist for ambulation. Cognitive and communication deficits. * Deficits to attention, executive function, memory, orientation, problem solving and reasoning. Worse with cognitive fatigue. * 0L0G 13/30 on 11/28/2017. 23 and 24/30 on 12/09/2017 and 12/10/2017. * Still has decreased recall and decreased attention. Also noted is decreased word retrieval. * Discussed with Neurosurgery KALEE Reagan, 12/04/2017. She reports that the surgeons (Stacie and Miki) were expecting aphasia due to cerebellar lesion. * Continue Speech and Language Pathology. Hydrocephalus status post endoventricular drain placement and removal. * Dexamethasone taper completed 12/05/2017. No signs or symptoms of recurrent hydrocephalus. * NEW HEADACHE AND NAUSEA - NO NEW NEUROLOGICAL EXAM DEFICITS - WILL WATCH ANOTHER DAY. IF PERSISTS WILL GET CT HEAD Postoperative pain management. Using meloxicam. * Discussed desire to reduce medications. Will discontinue meloxicam as well as famotidine starting 12/11/2017. Use acetaminophen for headaches. * Had headache overnight, 12/11-12/12/2017, possibly due to discontinuation of meloxicam. Continue to monitor, consider scheduling acetaminophen, consider initiating headache prophylactic. Orthostatic hypotension noted 12/03/2017. She was primarily orthostatic by heart rate rather than blood pressure. Thigh-high OZIEL hose and abdominal binder have been initiated. * Was orthostatic on 12/08/2017 despite abdominal binder and Oziel hose. * Citalopram may contribute. Discontinued starting 12/12/2017. * No orthostatic morning of 12/13/2017 before receiving midodrine and without abdominal binder and OZIEL hose. * Symptoms after breakfast may be due to UB prostate own verses splanchnic pooling of blood due to digestion. Insomnia. Improved with trazodone. Depression versus adjustment disorder with depressed mood. Often tearful through the day per nursing. * Initiated citalopram 20 mg q.day starting 12/05/2017. Discontinued per her request starting 12/12/2017. * Continue therapy as needed per OYSTER WORKER. Constipation. * Dulcolax suppository today, 12/06/2017. * Scheduled laxatives beginning 12/06/2017. * Best response to lubiprostone. Chronic constipation prior to hospitalization with bowel movement as infrequently as every 2 weeks. Discontinued senna and polyethylene glycol 12/12/2017 due to extra for bowel movement. * Discontinue new prostate own 12/14/2017 due to morning nausea and lightheadedness. Resume senna and polyethylene glycol. Monitor for resolution of symptoms and for continued bowel movements. Recent diagnosis of asthma. Continue the Breo Ellipta as well as the p.r.n. albuterol inhaler and nebulizer. She will have incentive spirometry. She will have oxygen as needed. Possible rheumatoid arthritis by history. Appears to be asymptomatic and doubt any exacerbation would be likely while she is on the dexamethasone taper. Renal cyst, likely benign. Any further investigation is postponed until recovery from the craniotomy. Negative for genetic mutation consistent with von Hippel-Lindau syndrome. Prophylaxis. She has ambulated more than 200 feet in the hospital and she does not have hemiparesis. Has not ambulated further than 15 ft in the past 2 days on inpatient rehabilitation, largely due to fatigue. If ambulation remains very limited, will need to initiate pharmacologic prophylaxis. She will have sequential compression devices. DISPOSITION: Lives with her at home in [place]. It is a multilevel home with stairs that she must negotiate indoors, and 3 steps to enter. Cognitive status needs to improve significantly for her to be left alone at all at home, and she needs to be safe on stairs. Continue discharge date for 2017. Subjective: new left headache over her eye and nausea. She hasn't had those symptoms since the tumor was removed. also a little fatigued Objective: Vital Signs Temp Pulse Resp BP Pulse Ox 36.7 C 61 18 112/76 92 12/14/17 07:31 12/14/17 12:07 12/14/17 07:31 12/14/17 12:07 12/14/17 07:31 12/13/17 12/14/17 12/15/17 05:59 05:59 05:59 Intake Total 840 1000 1100 Balance 840 1000 1100 - Physical Exam Constitutional: no apparent distress, appears nourished, not in pain Eyes: PERRL, anicteric sclera, EOMI Cardiovascular: regular rate and rhythym, no murmur, rub, or gallop Respiratory: no respiratory distress, no rales or rhonchi, clear to auscultation Skin: warm Neurologic: AAOx3, CN II-XII Intact, No weakness Psychiatric: interacting appropriately, not anxious, not encephalopathic, thought process linear ICD10 Worksheet Patient Problems: Problems Problem Status Onset Brain tumor Acute
[2017-12-14] MEDS: traZODone 50 MG TAB PO SCH (20:52)
[2017-12-15] MEDS: ACETAMINOPHEN 325 MG TAB PO PRN (04:47)
[2017-12-15] MEDS: Fluticasone/Vilanterol [Breo Ellipta 100-25 Mcg Inh] 1 EACH IH SCH (08:33)
[2017-12-15] MEDS: MIDODRINE HCL 5 MG TAB PO SCH ×3 (08:33→16:43)
[2017-12-15] MEDS: [UNRECOGNIZED DRUG - OTHER] PO SCH ×2 (08:33→20:22)
[2017-12-15] MEDS: SENNOSIDES 1 TAB PO SCH ×2 (08:33→20:21)
[2017-12-15] MEDS: POLYETHYLENE GLYCOL 3350 17 GM PKT PO SCH (08:33)
[2017-12-15] MEDS: DHA PO SCH ×2 (08:34→20:22)
[2017-12-15] MEDS: EPA PO SCH ×2 (08:34→20:22)
[2017-12-15] MEDS: OMEGA PO SCH ×2 (08:34→20:22)
[2017-12-15] MEDS: PHOSPSERIN PO SCH ×2 (08:34→20:22)
--- NOTE | 2017-12-15 10:38 | HOSPPROG ---
Hospitalist Progress Note Assessment/Plan: Debility with balance impairment, reduced mobility and need for assistance with an ADLs, status post craniotomy on 11/12/2017 and excision of a cerebellar hemangioblastoma. * Initial functional independence measure is 52 on 11/28/2017, improved to 64 as of 12/04/2017, then 72 as of 12/11/2017. Standby assist for bed mobility, transfers with contact guard assist with or without a front wheeled walker, walked 200 ft with contact guard to minimal assist with a front wheeled walker or a 4 wheeled walker. She has occasional right lateral lean. She climbed 3 stairs with bilateral rails contact guard assist. She does grooming and hygiene with standby assist. Upper and lower body dressing require supervision and setup. Bath and toilet transfers required contact guard assist to standby assist. Toileting is done with standby assist and bathing with supervision. She has slow visual processing. * Continue PT and OT to optimize mobility and activities of daily living towards the independent to modified independent level and needing only close contact guard assist for ambulation. Cognitive and communication deficits. * Deficits to attention, executive function, memory, orientation, problem solving and reasoning. Worse with cognitive fatigue. * 0L0G 13/30 on 11/28/2017. 23 and 24/30 on 12/09/2017 and 12/10/2017. * Still has decreased recall and decreased attention. Also noted is decreased word retrieval. * Discussed with Neurosurgery KALEE Reagan, 12/04/2017. She reports that the surgeons (Stacie and Miki) were expecting aphasia due to cerebellar lesion. * Continue Speech and Language Pathology. Hydrocephalus status post endoventricular drain placement and removal. * Dexamethasone taper completed 12/05/2017. No signs or symptoms of recurrent hydrocephalus. * 12/14 - NEW HEADACHE AND NAUSEA - NO NEW NEUROLOGICAL EXAM DEFICITS - 12/15 HEADACHE RESOLVED. NO NAUSEA Postoperative pain management. Using meloxicam. * Discussed desire to reduce medications. Will discontinue meloxicam as well as famotidine starting 12/11/2017. Use acetaminophen for headaches. * Had headache overnight, 12/11-12/12/2017, possibly due to discontinuation of meloxicam. Continue to monitor, consider scheduling acetaminophen, consider initiating headache prophylactic. Orthostatic hypotension noted 12/03/2017. She was primarily orthostatic by heart rate rather than blood pressure. Thigh-high OZIEL hose and abdominal binder have been initiated. * Was orthostatic on 12/08/2017 despite abdominal binder and Oziel hose. * Citalopram may contribute. Discontinued starting 12/12/2017. * No orthostatic morning of 12/13/2017 before receiving midodrine and without abdominal binder and OZIEL hose. * Symptoms after breakfast may be due to UB prostate own verses splanchnic pooling of blood due to digestion. Insomnia. Improved with trazodone. Depression versus adjustment disorder with depressed mood. Often tearful through the day per nursing. * Initiated citalopram 20 mg q.day starting 12/05/2017. Discontinued per her request starting 12/12/2017. * Continue therapy as needed per CUT OFF OPERATOR SCORER. Constipation. * Dulcolax suppository today, 12/06/2017. * Scheduled laxatives beginning 12/06/2017. * Best response to lubiprostone. Chronic constipation prior to hospitalization with bowel movement as infrequently as every 2 weeks. Discontinued senna and polyethylene glycol 12/12/2017 due to extra for bowel movement. * Discontinue new prostate own 12/14/2017 due to morning nausea and lightheadedness. Resume senna and polyethylene glycol. Monitor for resolution of symptoms and for continued bowel movements. Recent diagnosis of asthma. Continue the Breo Ellipta as well as the p.r.n. albuterol inhaler and nebulizer. She will have incentive spirometry. She will have oxygen as needed. Possible rheumatoid arthritis by history. Appears to be asymptomatic and doubt any exacerbation would be likely while she is on the dexamethasone taper. Renal cyst, likely benign. Any further investigation is postponed until recovery from the craniotomy. Negative for genetic mutation consistent with von Hippel-Lindau syndrome. Prophylaxis. She has ambulated more than 200 feet in the hospital and she does not have hemiparesis. Has not ambulated further than 15 ft in the past 2 days on inpatient rehabilitation, largely due to fatigue. If ambulation remains very limited, will need to initiate pharmacologic prophylaxis. She will have sequential compression devices. DISPOSITION: Lives with her at home in [place]. It is a multilevel home with stairs that she must negotiate indoors, and 3 steps to enter. Cognitive status needs to improve significantly for her to be left alone at all at home, and she needs to be safe on stairs. Continue discharge date for 2017. Subjective: headache better. still with double vision at times Objective: Vital Signs Temp Pulse Resp BP Pulse Ox 36.8 C 63 16 119/77 93 12/15/17 08:00 12/15/17 08:00 12/14/17 19:24 12/15/17 08:00 12/15/17 08:00 12/14/17 12/15/17 12/16/17 05:59 05:59 05:59 Intake Total 1000 1989 Balance 1000 1989 - Physical Exam Constitutional: no apparent distress, appears nourished, not in pain Eyes: anicteric sclera, EOMI Cardiovascular: regular rate and rhythym, no murmur, rub, or gallop Respiratory: no respiratory distress Gastrointestinal: normoactive bowel sounds, soft, non-tender abdomen, no palpable masses Skin: warm Neurologic: AAOx3 Psychiatric: interacting appropriately, not anxious, not encephalopathic, thought process linear ICD10 Worksheet Patient Problems: Problems Problem Status Onset Brain tumor Acute
[2017-12-15] MEDS: CALCIUM CARBONATE 500 MG CHEWABLE TAB PO PRN (18:05)
[2017-12-15] MEDS: traZODone 50 MG TAB PO SCH (20:21)
[2017-12-16] MEDS: Fluticasone/Vilanterol [Breo Ellipta 100-25 Mcg Inh] 1 EACH IH SCH (08:38)
[2017-12-16] MEDS: SENNOSIDES 1 TAB PO SCH ×2 (08:38→20:45)
[2017-12-16] MEDS: MIDODRINE HCL 5 MG TAB PO SCH ×3 (08:38→16:28)
[2017-12-16] MEDS: [UNRECOGNIZED DRUG - OTHER] PO SCH ×2 (08:39→20:46)
[2017-12-16] MEDS: EPA PO SCH ×2 (08:41→20:31)
[2017-12-16] MEDS: DHA PO SCH ×2 (08:41→20:31)
[2017-12-16] MEDS: OMEGA PO SCH ×2 (08:41→20:31)
[2017-12-16] MEDS: PHOSPSERIN PO SCH ×2 (08:41→20:31)
[2017-12-16] MEDS: ESTRADIOL VIVELLE 0.025 MG PATCH TD SCH (08:42)
[2017-12-16] MEDS: POLYETHYLENE GLYCOL 3350 17 GM PKT PO SCH (08:52)
[2017-12-16] MEDS: ONDANSETRON DISINTEGRATING 4 MG TAB PO PRN ×2 (10:29→16:34)
--- NOTE | 2017-12-16 12:27 | SOAPPROG ---
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 * Initial functional independence measure is 52 on 11/28/2017, improved to 64 as of 12/04/2017, then 72 as of 12/11/2017. Standby assist for bed mobility, transfers with contact guard assist with or without a front wheeled walker, walked 200 ft with contact guard to minimal assist with a front wheeled walker or a 4 wheeled walker. She has occasional right lateral lean. She climbed 3 stairs with bilateral rails contact guard assist. She does grooming and hygiene with standby assist. Upper and lower body dressing require supervision and setup. Bath and toilet transfers required contact guard assist to standby assist. Toileting is done with standby assist and bathing with supervision. She has slow visual processing. * Continue PT and OT to optimize mobility and activities of daily living towards the independent to modified independent level and needing only close contact guard assist for ambulation. Cognitive and communication deficits. * Deficits to attention, executive function, memory, orientation, problem solving and reasoning. Worse with cognitive fatigue. * 0L0G 13/30 on 11/28/2017. 23 and 24/30 on 12/09/2017 and 12/10/2017. 27 on 12/16, normal score. * Still has decreased recall and decreased attention. Also noted is decreased word retrieval. * Discussed with Neurosurgery KALEE Reagan, 12/04/2017. She reports that the surgeons (Stacie and Miki) were expecting aphasia due to cerebellar lesion. * Continue Speech and Language Pathology. Hydrocephalus status post endoventricular drain placement and removal. * Dexamethasone taper completed 12/05/2017. No signs or symptoms of recurrent hydrocephalus. * Head CT 12/16/2017 with no hydrocephalus, midline shift, hemorrhage, or other new abnormality. Nausea, vomiting, headache. Not accounted for by head CT findings 12/16/2017. Normal CBC, CMP, lipase. * Trial of sumatriptan. Postoperative pain management. Using meloxicam. * Discussed desire to reduce medications. Will discontinue meloxicam as well as famotidine starting 12/11/2017. Use acetaminophen for headaches. * Had headache overnight, 12/11-12/12/2017, possibly due to discontinuation of meloxicam. Continue to monitor, consider scheduling acetaminophen, consider initiating headache prophylactic. Orthostatic hypotension noted 12/03/2017. She was primarily orthostatic by heart rate rather than blood pressure. Thigh-high OZIEL hose and abdominal binder have been initiated. * Was orthostatic on 12/08/2017 despite abdominal binder and Oziel hose. * Citalopram may contribute. Discontinued starting 12/12/2017. * No orthostatic morning of 12/13/2017 before receiving midodrine and without abdominal binder and OZIEL hose. * Symptoms after breakfast may be due to lubiprostone verses splanchnic pooling of blood due to digestion. Insomnia. Improved with trazodone. Depression versus adjustment disorder with depressed mood. Often tearful through the day per nursing. * Initiated citalopram 20 mg q.day starting 12/05/2017. * Mood has improved as cognition has improved and she has adjusted to the inpatient rehabilitation milieu. Discontinued per her request starting 2017. * Continue therapy as needed per NUMBERER AND WIRER. Constipation. * Dulcolax suppository today, 12/06/2017. * Scheduled laxatives beginning 12/06/2017. * Best response to lubiprostone. Chronic constipation prior to hospitalization with bowel movement as infrequently as every 2 weeks. Discontinued senna and polyethylene glycol 12/12/2017 due to extra for bowel movement. * Discontinue lubiprostone 12/14/2017 due to morning nausea and lightheadedness. Resume senna and polyethylene glycol. Monitor for resolution of symptoms and for continued bowel movements. Recent diagnosis of asthma. Continue the Breo Ellipta as well as the p.r.n. albuterol inhaler and nebulizer. She will have incentive spirometry. She will have oxygen as needed. Possible rheumatoid arthritis by history. Appears to be asymptomatic and doubt any exacerbation would be likely while she is on the dexamethasone taper. Renal cyst, likely benign. Any further investigation is postponed until recovery from the craniotomy. Negative for genetic mutation consistent with von Hippel-Lindau syndrome. Prophylaxis. She has ambulated more than 200 feet in the hospital and she does not have hemiparesis. Has not ambulated further than 15 ft in the past 2 days on inpatient rehabilitation, largely due to fatigue. If ambulation remains very limited, will need to initiate pharmacologic prophylaxis. She will have sequential compression devices. DISPOSITION: Lives with her at home in [place]. It is a multilevel home with stairs that she must negotiate indoors, and 3 steps to enter. Cognitive status needs to improve significantly for her to be left alone at all at home, and she needs to be safe on stairs. Continue discharge date for 2017. Followup. Primary care provider is Dr. Harono Silva in [place], [place]. Will need to have further discussion with the Neurosurgery and Hematology/Oncology services regarding what followup might be indicated JUSTIFICATION FOR WALKER: This patient has a mobility limitation which significantly impairs 1 or more mobility related ADLs in the home. She is able to use a walker safely. Functional mobility deficit cannot be resolved with a cane. 12/16/17 12:27 12/17/17 12:53 Subjective: Complains of nausea. Says she vomited yesterday or overnight. Has had some double vision and per report had an episode of left-sided visual loss which resolved. Objective: Vital Signs Temp Pulse Resp BP Pulse Ox 37.1 C 66 16 116/82 H 91 L 12/16/17 06:42 12/16/17 08:00 12/16/17 06:42 12/16/17 08:00 12/16/17 06:42 12/15/17 12/16/17 12/17/17 05:59 05:59 05:59 Intake Total 1989 600 490 Output Total 400 Balance 1989 200 490 Physical Exam - Physical Exam General Appearance: WD/WN, alert, no apparent distress Respiratory: normal breath sounds, No crackles, No rhonchi, No wheezing Cardiac/Chest: regular rate, rhythm, No edema, No diastolic murmur, No systolic murmur Skin: normal color, warm/dry Neuro/Psych: alert, normal mood/affect, oriented x 3, aphasia (Ambulating with front wheeled walker. Appears mildly unstable. Short steps with reduced step through.), motor weakness (Right upper extremity ataxia) ICD10 Worksheet Patient Problems: Problems Problem Status Onset Brain tumor Acute
[2017-12-16 13:51] LABS: PLATELET COUNT 341 10^3/uL (150-400)
[2017-12-16] MEDS ORDERED: SUMAtriptan 50 MG TAB PO ONE ×3 (13:56→16:42)
[2017-12-16] MEDS: ACETAMINOPHEN 325 MG TAB PO PRN (17:54)
[2017-12-16] MEDS: traZODone 50 MG TAB PO SCH (20:45)
[2017-12-17] MEDS: ACETAMINOPHEN 325 MG TAB PO PRN (05:32)
[2017-12-17] MEDS: ONDANSETRON DISINTEGRATING 4 MG TAB PO PRN ×2 (07:26→19:34)
[2017-12-17] MEDS ORDERED: SUMAtriptan 50 MG TAB PO PRN (07:45)
[2017-12-17] MEDS: MIDODRINE HCL 5 MG TAB PO SCH ×2 (08:51→10:25)
[2017-12-17] MEDS: POLYETHYLENE GLYCOL 3350 17 GM PKT PO SCH (08:52)
[2017-12-17] MEDS: EPA PO SCH ×3 (08:56→22:13)
[2017-12-17] MEDS: PHOSPSERIN PO SCH ×3 (08:56→22:13)
[2017-12-17] MEDS: DHA PO SCH ×3 (08:56→22:13)
[2017-12-17] MEDS: OMEGA PO SCH ×3 (08:56→22:13)
[2017-12-17] MEDS: Fluticasone/Vilanterol [Breo Ellipta 100-25 Mcg Inh] 1 EACH IH SCH (08:56)
[2017-12-17] MEDS: [UNRECOGNIZED DRUG - OTHER] PO SCH ×3 (08:57→22:12)
[2017-12-17] MEDS: IBUPROFEN 600 MG TAB PO PRN (10:23)
[2017-12-17] MEDS: SENNOSIDES 1 TAB PO SCH ×2 (10:25→22:27)
--- NOTE | 2017-12-17 12:20 | SOAPPROG ---
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 * Initial functional independence measure is 52 on 11/28/2017, improved to 64 as of 12/04/2017, then 72 as of 12/11/2017. Standby assist for bed mobility, transfers with contact guard assist with or without a front wheeled walker, walked 200 ft with contact guard to minimal assist with a front wheeled walker or a 4 wheeled walker. She has occasional right lateral lean. She climbed 3 stairs with bilateral rails contact guard assist. She does grooming and hygiene with standby assist. Upper and lower body dressing require supervision and setup. Bath and toilet transfers required contact guard assist to standby assist. Toileting is done with standby assist and bathing with supervision. She has slow visual processing. * Continue PT and OT to optimize mobility and activities of daily living towards the independent to modified independent level and needing only close contact guard assist for ambulation. Cognitive and communication deficits. * Deficits to attention, executive function, memory, orientation, problem solving and reasoning. Worse with cognitive fatigue. * 0L0G 13/30 on 11/28/2017. 23 and 24/30 on 12/09/2017 and 12/10/2017. 27 on 12/16, normal score. * Still has decreased recall and decreased attention. Also noted is decreased word retrieval. * Discussed with Neurosurgery KALEE Reagan, 12/04/2017. She reports that the surgeons (Stacie and Miki) were expecting aphasia due to cerebellar lesion. * Continue Speech and Language Pathology. Hydrocephalus status post endoventricular drain placement and removal. * Dexamethasone taper completed 12/05/2017. No signs or symptoms of recurrent hydrocephalus. * Head CT 12/16/2017 with no hydrocephalus, midline shift, hemorrhage, or other new abnormality. * MRI 12/17/2017 to rule out other cerebellar abnormalities. Nausea, vomiting, headache. Not accounted for by head CT findings 12/16/2017. Normal CBC, CMP, lipase on 12/16/2017. * Trial of sumatriptan and has not been successful. Will discontinue. * MRI 12/17/2017 to rule out other cerebellar abnormalities. * Ibuprofen has been the most successful medication in treating headache. Nausea and vomiting persist. Postoperative pain management. Using meloxicam. * Discussed desire to reduce medications. Will discontinue meloxicam as well as famotidine starting 12/11/2017. Use acetaminophen for headaches. * Had headache overnight, 12/11-12/12/2017, possibly due to discontinuation of meloxicam. Continue to monitor, consider scheduling acetaminophen, consider initiating headache prophylactic. Orthostatic hypotension noted 12/03/2017. She was primarily orthostatic by heart rate rather than blood pressure. Thigh-high OZIEL hose and abdominal binder have been initiated. * Was orthostatic on 12/08/2017 despite abdominal binder and Oziel hose. * Citalopram may contribute. Discontinued starting 12/12/2017. * No orthostatic morning of 12/13/2017 before receiving midodrine and without abdominal binder and OZIEL hose. * Discontinuing midodrine 12/17/2017 as orthostasis is mild and symptoms are present even supine. Insomnia. Improved with trazodone. Depression versus adjustment disorder with depressed mood. Often tearful through the day per nursing. * Initiated citalopram 20 mg q.day starting 12/05/2017. * Mood has improved as cognition has improved and she has adjusted to the inpatient rehabilitation milieu. Discontinued per her request starting 2017. * Continue therapy as needed per FLOUR INSPECTOR. Constipation. * Dulcolax suppository today, 12/06/2017. * Scheduled laxatives beginning 12/06/2017. * Best response to lubiprostone. Chronic constipation prior to hospitalization with bowel movement as infrequently as every 2 weeks. Discontinued senna and polyethylene glycol 12/12/2017 due to extra for bowel movement. * Discontinue lubiprostone 12/14/2017 due to morning nausea and lightheadedness. Resume senna and polyethylene glycol. Monitor for resolution of symptoms and for continued bowel movements. Recent diagnosis of asthma. Continue the Breo Ellipta as well as the p.r.n. albuterol inhaler and nebulizer. She will have incentive spirometry. She will have oxygen as needed. Possible rheumatoid arthritis by history. Appears to be asymptomatic and doubt any exacerbation would be likely while she is on the dexamethasone taper. Renal cyst, likely benign. Any further investigation is postponed until recovery from the craniotomy. Negative for genetic mutation consistent with von Hippel-Lindau syndrome. Prophylaxis. She has ambulated more than 200 feet in the hospital and she does not have hemiparesis. Has not ambulated further than 15 ft in the past 2 days on inpatient rehabilitation, largely due to fatigue. If ambulation remains very limited, will need to initiate pharmacologic prophylaxis. She will have sequential compression devices. DISPOSITION: Lives with her at home in [place]. It is a multilevel home with stairs that she must negotiate indoors, and 3 steps to enter. Cognitive status needs to improve significantly for her to be left alone at all at home, and she needs to be safe on stairs. Continue discharge date for 2017. Followup. Primary care provider is Dr. Haroon Silva in [place], [place]. Will need to have further discussion with the Neurosurgery and Hematology/Oncology services regarding what followup might be indicated JUSTIFICATION FOR WALKER: This patient has a mobility limitation which significantly impairs 1 or more mobility related ADLs in the home. She is able to use a walker safely. Functional mobility deficit cannot be resolved with a cane. 12/16/17 12:27 12/17/17 12:20 Subjective: Headache is improved after sumatriptan and ibuprofen. She has nausea and feels that she could vomit any time. She vomited once this morning. She has lightheadedness and a sense that she could fall but denies vertigo. She has vision changes. Of the vertical divider between to windows appears to be slanted. She has diplopia with down gaze. Objective: Vital Signs Temp Pulse Resp BP Pulse Ox 36.9 C 56 L 16 125/78 H 91 L 12/16/17 20:00 12/17/17 08:00 12/17/17 08:00 12/17/17 08:00 12/17/17 08:00 Laboratory Results 12/16/17 12:50 12/16/17 12:50 12/16/17 12/17/17 12/18/17 05:59 05:59 05:59 Intake Total 600 930 Output Total 400 130 Balance 200 930 -130 Physical Exam - Physical Exam General Appearance: WD/WN, alert, no apparent distress Respiratory: No respiratory distress, No accessory muscle use Abdomen: normal bowel sounds, non-tender, soft, No distended Skin: normal color, warm/dry Neuro/Psych: alert, normal mood/affect, oriented x 3, abnormal gait (Mildly wide -based and with unsteadiness, using front wheeled walker with contact guard assist.), other (Not tolerating down gaze. Otherwise extraocular movements are intact. Pupils are equal round reactive to light. She has nystagmus with right gaze.) ICD10 Worksheet Patient Problems: Problems Problem Status Onset Brain tumor Acute
--- NOTE | 2017-12-17 12:34 | NEUROPROG ---
Assessment: Dr. Navarro called stating this patient was having headaches and vision changes. He reported she had a recent cerebellar tumor excision. Head CT showed no acute changes. I recommended he call and discuss the case with he neurosurgeon , Dr. Quinones, who performed her surgery. I recommended that if her symptoms did not improve and he was concerned she had some form of acute neurologic emergency that the patient be sent to [facility] ER. Objective: Vital Signs Temp Pulse Resp BP Pulse Ox 36.9 C 56 L 16 125/78 H 91 L 12/16/17 20:00 12/17/17 08:00 12/17/17 08:00 12/17/17 08:00 12/17/17 08:00 Laboratory Results 12/16/17 12:50 12/16/17 12:50 12/16/17 12/17/17 12/18/17 05:59 05:59 05:59 Intake Total 600 930 Output Total 400 130 Balance 200 930 -130 Allergies/Adverse Reactions: Sulfa (Sulfonamide Antibiotics) Allergy (Unknown, Verified 11/08/17 18:02)
[2017-12-17] MEDS ORDERED: DIAZEPAM 2 MG TAB PO PRN (13:56)
[2017-12-17] MEDS: DIAZEPAM 2 MG TAB PO PRN ×2 (14:14→21:06)
[2017-12-17] MEDS ORDERED: GADOBUTROL 10 ML VIAL IVP ONE (15:20)
[2017-12-17] MEDS: METOCLOPRAMIDE 10 MG TAB PO PRN (18:19)
[2017-12-17] MEDS ORDERED: MELATONIN 3 MG TAB PO SCH (21:00)
[2017-12-17] MEDS ORDERED: NORTRIPTYLINE HCL 50 MG CAP PO SCH (21:00)
[2017-12-18] MEDS: IBUPROFEN 600 MG TAB PO PRN (07:00)
[2017-12-18] MEDS ORDERED: MELATONIN 3 MG TAB PO PRN (09:52)
--- NOTE | 2017-12-18 09:58 | SOAPPROG ---
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 * Initial functional independence measure is 52 on 11/28/2017, improved to 64 as of 12/04/2017, then 72 as of 12/11/2017; to 78 as of 12/18/2017. Close standby to contact guard assist for mobility. Balance is worse in the morning. Using front wheeled walker and today beginning to use 4 wheeled walker, which she will use outdoors. She climbed 9 stairs with 1 rail contact guard assist. Visual issues limit function on the stairs. Standby assist for activities of daily living. Successful kitchen task today 12/18/2017. * Continue PT and OT to optimize mobility and activities of daily living towards the independent to modified independent level and needing only close contact guard assist for ambulation. Cognitive and communication deficits. * Deficits to attention, executive function, memory, orientation, problem solving and reasoning. Worse with cognitive fatigue. * 0L0G 13/30 on 11/28/2017. 23 and 24/30 on 12/09/2017 and 12/10/2017. 27 on 12/16, normal score. * Still has decreased recall and decreased attention. Also noted is decreased word retrieval. Continues to make significant gains. * Discussed with Neurosurgery KALEE Reagan, 12/04/2017. She reports that the surgeons (Stacie and Miki) were expecting aphasia due to cerebellar lesion. * Continue Speech and Language Pathology. Hydrocephalus status post endoventricular drain placement and removal. * Dexamethasone taper completed 12/05/2017. No signs or symptoms of recurrent hydrocephalus. * Head CT 12/16/2017 with no hydrocephalus, midline shift, hemorrhage, or other new abnormality. Nausea, vomiting, headache, diplopia. Not accounted for by head CT findings 12/16/2017. Normal CBC, CMP, lipase. Appreciate assistance of Neurology regarding management of symptoms of cerebellar damage. * Sumatriptan he may have had mild effect. Headache relief from ibuprofen. * Good symptom relief from diazepam. Counseled that she may want to use it occasionally, for instance for the drive home up [place]. * Continue nortriptyline at HS as headache preventive per advice of Neurology. Use eye patch p.r.n. for symptom relief. Symptoms will gradually remit over period of 1-2 months. Follow up with Dr. Smith 1 - 6 weeks after discharge. Postoperative pain management. Using meloxicam. * Discussed desire to reduce medications. Will discontinue meloxicam as well as famotidine starting 12/11/2017. Use acetaminophen for headaches. * Had headache overnight, 12/11-12/12/2017, possibly due to discontinuation of meloxicam. Continue to monitor, consider scheduling acetaminophen, consider initiating headache prophylactic. Orthostatic hypotension noted 12/03/2017. She was primarily orthostatic by heart rate rather than blood pressure. Thigh-high OZIEL hose and abdominal binder have been initiated. * Was orthostatic on 12/08/2017 despite abdominal binder and Oziel hose. * Citalopram may contribute. Discontinued starting 12/12/2017. * No orthostatic morning of 12/13/2017 before receiving midodrine and without abdominal binder and OZIEL hose. * Symptoms after breakfast may be due to lubiprostone verses splanchnic pooling of blood due to digestion. Insomnia. Improved with trazodone. Depression versus adjustment disorder with depressed mood. Often tearful through the day per nursing. * Initiated citalopram 20 mg q.day starting 12/05/2017. * Mood has improved as cognition has improved and she has adjusted to the inpatient rehabilitation milieu. Discontinued per her request starting 2017. * Continue therapy as needed per TOOL ENGINE LATHE SET UP OPERATOR. Constipation. * History of chronic constipation. Has had a variety of laxatives while inpatient with best response to lubiprostone. Lubiprostone was discontinued out of concern that it might be causing nausea and she has had constipation since discontinuation. Discussed with patient. Will resume lubiprostone and prescribe it for use after discharge. Recent diagnosis of asthma. Continue the Breo Ellipta as well as the p.r.n. albuterol inhaler and nebulizer. She will have incentive spirometry. She will have oxygen as needed. Possible rheumatoid arthritis by history. Appears to be asymptomatic and doubt any exacerbation would be likely while she is on the dexamethasone taper. Renal cyst, likely benign. Any further investigation is postponed until recovery from the craniotomy. Negative for genetic mutation consistent with von Hippel-Lindau syndrome. Prophylaxis. She has ambulated more than 200 feet in the hospital and she does not have hemiparesis. Has not ambulated further than 15 ft in the past 2 days on inpatient rehabilitation, largely due to fatigue. If ambulation remains very limited, will need to initiate pharmacologic prophylaxis. She will have sequential compression devices. DISPOSITION: Attended staffing, 15 min. Discussed with case consultant, nursing, PT, OT, HUMAN FACTORS ERGONOMIST. Lives with her at home in [place]. It is a multilevel home with stairs that she must negotiate indoors, and 3 steps to enter. Now that neurological symptoms of cerebellar dysfunction are stabilized and improving. She still needs 24 hr supervision assistance. Discharge date delayed from 12/19/2017 to 12/20/2017 to ensure functional stability and for more training of family and caregivers. Followup. Primary care provider is Dr. Haroon Silva in [place], [place]. Follow up with Neurosurgery and with Neurology after discharge. Will have followup with Oncology as well but this may be coordinated through Neurosurgery. JUSTIFICATION FOR WALKER: This patient has a mobility limitation which significantly impairs 1 or more mobility related ADLs in the home. She is able to use a walker safely. Functional mobility deficit cannot be resolved with a cane. 12/18/17 10:20 12/18/17 10:35 Subjective: Slept well. Feels better this morning. Still concerned about nausea and did not take her supplements. Reports that she took gabapentin after her brain injury and is hopeful that it will help alleviate her symptoms. Has good symptom relief when she takes Valium. Ibuprofen is effective for the headache. Objective: Vital Signs Temp Pulse Resp BP Pulse Ox 36.7 C 59 L 16 127/90 H 92 12/17/17 19:28 12/17/17 19:28 12/17/17 19:28 12/17/17 19:28 12/17/17 19:28 Laboratory Results 12/16/17 12:50 12/16/17 12:50 12/17/17 12/18/17 12/19/17 05:59 05:59 05:59 Intake Total 930 1290 200 Output Total 230 Balance 930 1060 200 - Time Spent With Patient Time Spent With Patient: Greater than 35 min floor time today, including more than 50% of time in coordination of care during staffing meeting, and in discussion with neurologist Dr. Klein, and counseling patient. Physical Exam - Physical Exam General Appearance: WD/WN, alert, no apparent distress Respiratory: No respiratory distress, No accessory muscle use Skin: normal color, warm/dry Neuro/Psych: alert, normal mood/affect, oriented x 3 ICD10 Worksheet Patient Problems: Problems Problem Status Onset Brain tumor Acute
--- NOTE | 2017-12-18 10:08 | NEUROPROG ---
Assessment: [id number] - Neurology Consult: - CC: Dr. Navarro consulted neurology for vision changes and headaches. Results placed in EMR for his review. - HPI: Pt noted around August 2017 she began having headaches, balance issues, and vision changes. Brain MRI showed cerebellar mass. Neurosurgery resected the mass on 11/12/17. Pathology showed hemangioblastoma. Post-operatively she had hydrocephalus so needed a shunt. She also had dysphagia which resolved. She was discharged from the hospital and placed in inpatient rehab. In rehab it was noted she had some headaches, vision issues, cognition changes, and poor balance. Brain MRI on 12/17/17 showed no new acute changes but did show the tumor resection site and ELECTRICAL AND INSTRUMENTATION MANAGER catheter scarring. Case discussed with neurosurgery by rehab doctor as well. I initially saw the patient on 12/18/17. She reported that she has intermittent double vision since the surgery as well as intermittent photophobia, vertigo, and nausea/vomiting. It appears her symptoms are from her cerebellar tumor and the resection to remove it as well as the recent ELECTRICAL AND INSTRUMENTATION MANAGER shunt that was placed. The patient had been started on nortriptyline 50 mg qhs to help with symptoms. I agree with this plan as anti- migraine meds can often improve these symptoms. Otherwise she needs to continue with rehab exercises as these symptoms will likely improve over time. I also recommended a use of an eye patch during symptoms of double vision. Pt reminded to only use the eye patch a few hours per day as overuse of it can inhibit neurologic recovery. Pt can f/u with me in outpatient setting 1-6 weeks after hospital discharge to ensure symptoms improving. - PMHx: TBI asthma, RA?, cerebellar brain tumor with excision on 11/12/17 (surgery complicated by hydrocephalus requiring shunt placement) - SHx: speaks greek FHx: no brain tumor - ROS: Pt denied acute fever, total vision loss, active severe chest pain, respiratory failure, total body severe rash, total bowel/bladder incontinence, psychosis, active seizures, or active bleeding - O: VS reviewed General: Alert Eyes: Fundoscopic exam not able to visualize optic disks CV: Heart RRR, no murmur, no carotid bruit Lungs: Clear to auscultation bilaterally, no rhonchi or rales Neuro: - Mental: . Oriented x person/place/date . concentration appears normal . speech fluency/comprehension normal . memory appears normal . fund of knowledge appear intact - Cranial Nerves: . II: PERRL, VF difficult to test as she has diplopia since surgery . III/IV/: EOMI, no nystagmus, normal smooth pursuits, no Ptosis . V: facial sensation intact to LT . VII: face symmetric to eye closure and smile . VIII: hearing intact to conversation . IX/X: uvula raises symmetrically . XI: SCM 5/5 B/L strength . XII: tongue protrudes midline w/nl strength - Motor: . Tone: normal tone in all 4 extremity . Strength: no pronator drift, strength 5/5 throughout (B/L delt, bic, tri, hand airplane electrician, hf/he, df/pf) - Reflexes: B/L bic/BR/patella 2/4 - Sensory: all 4 extremity intact to light touch - Coord: some hand coordination issues likely from diplopia - Gait: deferred - Labs: 12/16/17- Chem wnl - Rads: 12/16/17- Head CT: No hydrocephalus or midline shift. Right cerebellar residual encephalomalacia post surgery without residual hemorrhage. Right frontal linear encephalomalacia from previous shunt tract. No acute hemorrhage or mass effect. - Brain MRI wwo: Right occipital surgical cavity demonstrates residual blood products and minimal mass effect, without evidence of recurrent or residual enhancing neoplasm. Right frontal subacute linear hemorrhagic tract in the region of previous ventricular catheter. Minimal subarachnoid hemorrhage in the right occipital lobe region, probably postsurgical, without evidence of acute infarct. Diffusion series demonstrates no evidence of an acute infarct. No hydrocephalus, midline shift, or herniation. (I personally visualized the images on 12/18/17) - Assessment: 1. Cerebellar tumor with resection on 11/12/17: Neurologic exam on 12/18/17 showed diplopia with vision issues. She reported that she has intermittent double vision since the surgery as well as intermittent photophobia, vertigo, and nausea/vomiting. It appears her symptoms are from her cerebellar tumor and the resection to remove it as well as the recent ELECTRICAL AND INSTRUMENTATION MANAGER shunt that was placed. The patient had been started on nortriptyline 50 mg qhs to help with symptoms. I agree with this plan as anti-migraine meds can often improve these symptoms. Otherwise she needs to continue with rehab exercises as these symptoms will likely improve over time. I also recommended a use of an eye patch during symptoms of double vision. Pt reminded to only use the eye patch a few hours per day as overuse of it can inhibit neurologic recovery. Pt can f/u with me in outpatient setting 1-6 weeks after hospital discharge to ensure symptoms improving. - Plan: - Agree with current treatment plan to include nortriptyline 50 mg po qhs - Continue work closely with neurosurgery after hospital discharge - F/U in neurology clinic in 1-6 weeks after discharge - I also recommended a use of an eye patch during symptoms of double vision. Pt reminded to only use the eye patch a few hours per day as overuse of it can inhibit neurologic recovery. - No further neurologic w/u needed, neurology will sign off Objective: Vital Signs Temp Pulse Resp BP Pulse Ox 36.7 C 59 L 16 127/90 H 92 12/17/17 19:28 12/17/17 19:28 12/17/17 19:28 12/17/17 19:28 12/17/17 19:28 Laboratory Results 12/16/17 12:50 12/16/17 12:50 12/17/17 12/18/17 12/19/17 05:59 05:59 05:59 Intake Total 930 1290 200 Output Total 230 Balance 930 1060 200 Allergies/Adverse Reactions: Sulfa (Sulfonamide Antibiotics) Allergy (Unknown, Verified 11/08/17 18:02)
[2017-12-18] MEDS: [UNRECOGNIZED DRUG - OTHER] PO SCH ×2 (10:24→20:24)
[2017-12-18] MEDS: POLYETHYLENE GLYCOL 3350 17 GM PKT PO SCH (10:24)
[2017-12-18] MEDS: SENNOSIDES 1 TAB PO SCH (10:24)
[2017-12-18] MEDS: EPA PO SCH ×2 (10:24→20:24)
[2017-12-18] MEDS: DHA PO SCH ×2 (10:24→20:24)
[2017-12-18] MEDS: OMEGA PO SCH ×2 (10:24→20:24)
[2017-12-18] MEDS: PHOSPSERIN PO SCH ×2 (10:24→20:24)
[2017-12-18] MEDS ORDERED: GABAPENTIN 300 MG CAP PO SCH (16:00)
[2017-12-18] MEDS: Fluticasone/Vilanterol [Breo Ellipta 100-25 Mcg Inh] 1 EACH IH SCH (17:49)
[2017-12-18] MEDS: ONDANSETRON DISINTEGRATING 4 MG TAB PO PRN (18:17)
[2017-12-18] MEDS: NORTRIPTYLINE HCL 50 MG CAP PO SCH (20:24)
[2017-12-18] MEDS: LUBIPROSTONE 8 MCG CAP PO SCH (20:24)
[2017-12-19] MEDS: IBUPROFEN 600 MG TAB PO PRN (07:20)
[2017-12-19] MEDS: LUBIPROSTONE 8 MCG CAP PO SCH ×2 (08:31→20:45)
[2017-12-19] MEDS: ESTRADIOL VIVELLE 0.025 MG PATCH TD SCH (08:32)
[2017-12-19] MEDS: [UNRECOGNIZED DRUG - OTHER] PO SCH ×2 (08:35→20:46)
[2017-12-19] MEDS: EPA PO SCH ×2 (08:36→20:46)
[2017-12-19] MEDS: OMEGA PO SCH ×2 (08:36→20:46)
[2017-12-19] MEDS: PHOSPSERIN PO SCH ×2 (08:36→20:46)
[2017-12-19] MEDS: DHA PO SCH ×2 (08:36→20:46)
[2017-12-19] MEDS: Fluticasone/Vilanterol [Breo Ellipta 100-25 Mcg Inh] 1 EACH IH SCH (08:39)
[2017-12-19] MEDS: POLYETHYLENE GLYCOL 3350 17 GM PKT PO SCH (08:40)
[2017-12-19] MEDS: ONDANSETRON DISINTEGRATING 4 MG TAB PO PRN (13:12)
[2017-12-19] MEDS: METOCLOPRAMIDE 10 MG TAB PO PRN (13:53)
--- NOTE | 2017-12-19 17:54 | SOAPPROG ---
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 * Initial functional independence measure is 52 on 11/28/2017, improved to 64 as of 12/04/2017, then 72 as of 12/11/2017. Standby assist for bed mobility, transfers with contact guard assist with or without a front wheeled walker, walked 200 ft with contact guard to minimal assist with a front wheeled walker or a 4 wheeled walker. She has occasional right lateral lean. She climbed 3 stairs with bilateral rails contact guard assist. She does grooming and hygiene with standby assist. Upper and lower body dressing require supervision and setup. Bath and toilet transfers required contact guard assist to standby assist. Toileting is done with standby assist and bathing with supervision. She has slow visual processing. * Continue PT and OT to optimize mobility and activities of daily living towards the independent to modified independent level and needing only close contact guard assist for ambulation. Cognitive and communication deficits. * Deficits to attention, executive function, memory, orientation, problem solving and reasoning. Worse with cognitive fatigue. * 0L0G 13/30 on 11/28/2017. 23 and 24/30 on 12/09/2017 and 12/10/2017. 27 on 12/16, normal score. * Still has decreased recall and decreased attention. Also noted is decreased word retrieval. * Discussed with Neurosurgery KALEE Reagan, 12/04/2017. She reports that the surgeons (Stacie and Miki) were expecting aphasia due to cerebellar lesion. * Continue Speech and Language Pathology. Hydrocephalus status post endoventricular drain placement and removal. * Dexamethasone taper completed 12/05/2017. No signs or symptoms of recurrent hydrocephalus. * Head CT 12/16/2017 with no hydrocephalus, midline shift, hemorrhage, or other new abnormality. * MRI 12/17/2017 ruled out other cerebellar abnormalities. Nausea, vomiting, headache. Not accounted for by head CT findings 12/16/2017 or MRI findings 12/17/2017. Normal CBC, CMP, lipase on 12/16/2017. * Trial of sumatriptan and has not been successful. Will discontinue. * Ibuprofen has been the most successful medication in treating headache. Nausea and vomiting persist. * Trial of metoclopramide for nausea and vomiting. Diazepam is effective but should only be used infrequently p.r.n. due to sedating effects. Hypoxia noted overnight and during the day 12/18/2017-12/19/2017. Obtained chest x-ray which has been read by the radiologist as new small area of consolidation in the right costophrenic angle but improved consolidation in the left lobe. No leukocytosis on CBC 01/2018. * Gave single dose levofloxacin 750 mg, afternoon of 12/19/2017, in case she has aspiration pneumonia developing due to vomiting. * Await or procalcitonin. If it is not elevated, will discontinue levofloxacin. * Await D-dimer. * Arranged for oxygen for discharge home as she lives at much higher elevation than [place]. Postoperative pain management. * Discussed desire to reduce medications. Discontinued meloxicam as well as famotidine starting 12/11/2017. Started ibuprofen 12/17/2017 with good effect. Orthostatic hypotension noted 12/03/2017. She was primarily orthostatic by heart rate rather than blood pressure. Thigh-high OZIEL hose and abdominal binder have been initiated. * Was orthostatic on 12/08/2017 despite abdominal binder and Oziel hose. * Citalopram may contribute. Discontinued starting 12/12/2017. * No orthostatic morning of 12/13/2017 before receiving midodrine and without abdominal binder and OZIEL hose. * Discontinuing midodrine 12/17/2017 as orthostasis is mild and symptoms are present even supine. Insomnia. Improved with trazodone. Changed to nortriptyline 12/17/2017 for headache prophylaxis. Depression versus adjustment disorder with depressed mood. Often tearful through the day per nursing. * Initiated citalopram 20 mg q.day starting 12/05/2017. * Mood has improved as cognition has improved and she has adjusted to the inpatient rehabilitation milieu. Discontinued per her request starting 2017. * Continue therapy as needed per [employer]. Constipation. * Dulcolax suppository today, 12/06/2017. * Scheduled laxatives beginning 12/06/2017. * Best response to lubiprostone. Chronic constipation prior to hospitalization with bowel movement as infrequently as every 2 weeks. Discontinued senna and polyethylene glycol 12/12/2017 due to extra for bowel movement. * Discontinue lubiprostone 12/14/2017 due to morning nausea and lightheadedness. Resume senna and polyethylene glycol. Monitor for resolution of symptoms and for continued bowel movements. * Discontinued senna and polyethylene glycol 12/18/2017 and resumed loopy prostate on, as it seems clear that lubiprostone has been effective and did not cause nausea and vomiting. Recent diagnosis of asthma. Continue the Breo Ellipta as well as the p.r.n. albuterol inhaler and nebulizer. She will have incentive spirometry. She will have oxygen as needed. Possible rheumatoid arthritis by history. Appears to be asymptomatic and doubt any exacerbation would be likely while she is on the dexamethasone taper. Renal cyst, likely benign. Any further investigation is postponed until recovery from the craniotomy. Negative for genetic mutation consistent with von Hippel-Lindau syndrome. Prophylaxis. She has ambulated more than 200 feet in the hospital and she does not have hemiparesis. Has not ambulated further than 15 ft in the past 2 days on inpatient rehabilitation, largely due to fatigue. If ambulation remains very limited, will need to initiate pharmacologic prophylaxis. She will have sequential compression devices. DISPOSITION: Lives with her at home in [place]. It is a multilevel home with stairs that she must negotiate indoors, and 3 steps to enter. Cognitive status needs to improve significantly for her to be left alone at all at home, and she needs to be safe on stairs. Continue discharge date for 2017. Followup. Primary care provider is Dr. Haroon Silva in [place], [place]. Will need to have further discussion with the Neurosurgery and Hematology/Oncology services regarding what followup might be indicated JUSTIFICATION FOR WALKER: This patient has a mobility limitation which significantly impairs 1 or more mobility related ADLs in the home. She is able to use a walker safely. Functional mobility deficit cannot be resolved with a cane. 12/19/17 17:47 Subjective: Continues to have intermittent dizziness, non vertiginous, and occasional loss of balance while ambulating. Had emesis x1 overnight. No fevers or chills, no cough or dyspnea. Objective: Vital Signs Temp Pulse Resp BP Pulse Ox 36.6 C 63 20 128/87 H 92 12/19/17 16:30 12/19/17 16:30 12/19/17 16:30 12/19/17 16:30 12/19/17 16:30 Laboratory Results 12/16/17 12:50 12/18/17 12/19/17 12/20/17 05:59 05:59 05:59 Intake Total 1290 940 Output Total 230 Balance 1060 940 Physical Exam - Physical Exam General Appearance: WD/WN, alert, no apparent distress Respiratory: normal breath sounds, No crackles, No rhonchi, No wheezing Cardiac/Chest: regular rate, rhythm, No edema, No diastolic murmur, No systolic murmur Skin: normal color, warm/dry Neuro/Psych: alert, normal mood/affect, oriented x 3, abnormal gait, speech abnormalities (Mild dysarthria) ICD10 Worksheet Patient Problems: Problems Problem Status Onset Brain tumor Acute
[2017-12-19 18:03] LABS: PLATELET COUNT 349 10^3/uL (150-400)
[2017-12-19] MEDS ORDERED: IOPAMIDOL (ISOVUE 370) 100 ML BTL IV ONE (19:09)
[2017-12-19] MEDS: NORTRIPTYLINE HCL 50 MG CAP PO SCH (20:46)
[2017-12-19] MEDS: ENOXAPARIN 60 MG/0.6 ML SYR SC SCH (21:17)
[2017-12-19] MEDS: DIAZEPAM 2 MG TAB PO PRN (21:27)
[2017-12-20] MEDS: POLYETHYLENE GLYCOL 3350 17 GM PKT PO SCH (08:53)
[2017-12-20] MEDS: [UNRECOGNIZED DRUG - OTHER] PO SCH (08:54)
[2017-12-20] MEDS: EPA PO SCH (08:55)
[2017-12-20] MEDS: DHA PO SCH (08:55)
[2017-12-20] MEDS: OMEGA PO SCH (08:55)
[2017-12-20] MEDS: PHOSPSERIN PO SCH (08:55)
[2017-12-20] MEDS: LUBIPROSTONE 8 MCG CAP PO SCH (08:57)
[2017-12-20] MEDS: Fluticasone/Vilanterol [Breo Ellipta 100-25 Mcg Inh] 1 EACH IH SCH (08:57)
[2017-12-20] MEDS ORDERED: APIXABAN 5 MG TAB PO SCH (09:45)
[2017-12-20] MEDS: ENOXAPARIN 60 MG/0.6 ML SYR SC SCH (10:10)
[2017-12-20 11:52] VITALS: BP 120/87
--- NOTE | 2017-12-20 14:00 | PDOREHIP ---
Admission [facility] - Admission - 3 Day Assessment Period Admission Date/Day 1: 11/26/17 Day 2: 11/27/17 Day 3: 11/28/17 - Active Diagnoses Comorbidities and Co-existing Conditions at Admission: 06221. None of the Above Discharge [facility] - Discharge - 3 Day Assessment Period 2 Days Prior to Anticipated Discharge Date: 12/18/17 1 Day Prior to Anticipated Discharge Date: 12/19/17 Anticipated Discharge Date: 12/20/17 - Discharge Skin Conditions Unhealed Pressure Ulcer (1 or more/Stage 1 or >)-Discharge: 0. No # Stage 1 Pressure Ulcers-Discharge: 0 # Stage 2 Pressure Ulcers-Discharge: 0 # of These Stage 2 Pressure Ulcers Present on Admission: 0 # Stage 3 Pressure Ulcers-Discharge: 0 # of These Stage 3 Pressure Ulcers Present on Admission: 0 # Stage 4 Pressure Ulcers-Discharge: 0 # of These Stage 4 Pressure Ulcers Present on Admission: 0 # Unstageable Pressure Ulcers (Non-remove Dress)-Discharge: 0 # These Unstageable Pressure Ulcers (NRD)-Present on Admit: 0 # Unstageable Pressure Ulcers (Slough/Eschar)-Discharge: 0 # These Unstageable Pressure Ulcers(Slough) Present on Admit: 0 # Unstageable Pressure Ulcers (Deep Tissue Injury)-Discharge: 0 # These Unstageable Pressure Ulcers (DTI) Present on Admit: 0
[2017-12-20] MEDS: DIAZEPAM 2 MG TAB PO PRN (15:53)
--- NOTE | 2017-12-20 19:26 | GDS ---
ADMISSION DIAGNOSIS: Debility, status post craniotomy and excision of cerebellar hemangioblastoma. DISCHARGE DIAGNOSES: Debility, status post craniotomy and excision of cerebellar hemangioblastoma. OTHER DISCHARGE DIAGNOSES: 1. Nausea, vomiting, and headache. 2. Pulmonary emboli. 3. Orthostatic hypotension. 4. Constipation. COMPLICATIONS: There were pulmonary emboli. CONSULTATIONS: She was seen by neurologist, Dr. Knvg Klein. PROCEDURES: She had a chest CT angiogram. HISTORY AND HOSPITAL COURSE: This patient was admitted from [facility] where she underwent surgery for excision of a cerebellar hemangioblastoma on 11/12/2017, by neurosurgeon, Dr. Quinones. She required an intraventricular drain after surgery for hydrocephalus, but this subsequently resolved. She was eventually medically stabilized and ready for inpatient rehabilitation. She did very well in rehabilitation. Her initial functional independence measure was 52 on 11/28/2017, which is consistent with prison level of care, needing assistance with all aspects of mobility and activities of daily living. Functional independence measure improved to 72 as of 12/11/2017, and subsequently continued to improve. She was needing standby assist for bed mobility. She was doing transfers with contact guard assist with or without a front-wheeled walker. She walked 200 feet with contact guard to minimal assist with a front-wheeled walker or a 4-wheeled walker. She had an occasional right lateral lean. She was able to climb and descend 3 stairs with bilateral rails and contact guard assist. She did grooming and hygiene with standby assist. Upper and lower body dressing required only supervision and setup. Bath and toilet transfers required contact guard assist to standby assist and toileting was done with standby assist and bathing with supervision. She was seen by speech and language pathology regarding cognitive and communication deficits. Initially, she was disoriented but eventually recovered normal orientation as of 12/16/2017. She continued to have decreased recall and decreased attention, but these were improving. She had expressive aphasia and dysarthria which also considerably improved during her stay. She was symptomatic regarding her cerebellar lesion with nausea, vomiting, headache and diplopia. She had CT and MRI on 12/16 and 12/17/2017 to evaluate for any recurrence of tumor or hydrocephalus and these were not found. Labs including CBC, CMP and lipase were normal on 12/16/2017. She was tried on sumatriptan for possible migrainous component and this was not successful. Ultimately, ibuprofen was the most successful medication for the headache. Nausea and vomiting did not respond well to ondansetron and several days before discharge, she was tried on metoclopramide on which she was discharged. Diazepam was also an effective medication for her though as it was sedating, it was not used very often. Overnight 12/18 to 12/19/2017, she was noted to have hypoxia and it persisted during the day on 12/20/2017. She had a chest x-ray which had a possible small area of consolidation in the right costophrenic angle for which she was begun on levofloxacin. However, she had no leukocytosis on the CBC and procalcitonin was negative. She had an elevated D-dimer. She was sent for a chest CT which showed segmental and subsegmental pulmonary emboli on the right. Levofloxacin was discontinued. She was initiated 1st on enoxaparin and then finally after discussion with her pharmacy, was begun on apixaban. She had orthostatic hypotension. This gradually improved. Ultimately her symptoms of lightheadedness were attributed to her cerebellar issues rather than to the orthostatic hypotension. She was treated during part of her stay with thigh-high OZIEL hose and abdominal binder and with midodrine, but these were able to be discontinued before discharge. She had constipation. This has been a chronic issue for her. Her normal bowel movements are every 1-2 weeks. She was on a variety of laxatives. She had the best response to lubiprostone. It was discontinued for part of her stay due to concerns that it might be causing nausea and lightheadedness. However, when these did not improve with discontinuation, it was resumed. Workup in the hospital had revealed a renal cyst. There was a lab sent from the hospital for the genetic mutation consistent with von Hippel-Lindau syndrome , but this was negative. Condition upon discharge is good. Activity: She requires supervision with mobility related ADLs and she requires contact guard assist for ambulation. DISPOSITION: She is returning home to her in [place]. There will be private duty help hired for part of the day and she will have friends and her helping her for the rest of the time. MEDICATIONS ON DISCHARGE: 1. Acetaminophen 650 mg p.o. q.6 hours p.r.n. 2. Albuterol metered dose inhaler 2 puffs q.4 hours p.r.n. 3. Apixaban 10 mg p.o. twice daily for 1 week and then 5 mg p.o. twice daily with an expected duration of 3-6 months. 4. Calcium carbonate 500 mg p.o. three times daily p.r.n. 5. Diazepam 2 to 5 mg p.o. q.6 hours p.r.n. 6. Estradiol 0.025 mg patch transdermal every Saturday and . 7. Fluticasone/vilanterol 1 inhalation daily. 8. Ibuprofen 600 mg p.o. q.6 hours p.r.n. 9. Lubiprostone 8 mcg p.o. twice daily. 10. Metoclopramide 10 mg p.o. q.6 hours p.r.n. nausea. 11. Nortriptyline 50 mg p.o. at bedtime. 12. [id number] supplements of Bayarin and Vayacog. 13. Artificial Tears p.r.n. 14. Polyethylene glycol 17 g p.o. daily. ISSUES TO BE ADDRESSED AT FOLLOW UP: 1. Functional status regarding mobility and activities of daily living. She will continue to have home physical therapy and occupational therapy. 2. Cognitive status and dysarthria/mild aphasia. She will continue to have speech and language pathology in the home. 3. Pulmonary embolus. Continue apixaban likely 3-6 months. Follow up with primary care. 4. Status post craniotomy. She will follow up with Neurosurgery, Dr. Quinones. 5. 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 She will follow up with oncologist, Dr. Soledad Montejo. 6. Neurological symptoms of cerebellar injury. She will follow up with neurologist, Dr. Kvng Klein. 7. Visual disturbance including diplopia. Follow up with neuro-soundscriber mechanic, Dr. Carmelo Oconnor. 8. History of brain injury and functional status. She will follow up with independent trader, Dr. Ruba Laureano. Greater than 30 minutes were spent on this discharge summary including medication reconciliation, coordination of care, and counseling patient and . /[id number]/MODL MTDD
== END 2017-12-20 16:09 | disposition still patient (30) | DRG 949 ==
LOC: BREH 13:22
PROVIDERS: ADMIT Internal Medicine; ATTEND Internal Medicine
PROC: F08Z7ZZ Vocational Activities and Functional Community or Work Reintegration Skills Treatment (ICD-10-PCS; principal; 2017-11-26)
PROC: F07M3ZZ Motor Function Treatment of Musculoskeletal System - Whole Body (ICD-10-PCS; principal; 2017-11-26)
PROC: F0636ZZ Communicative/Cognitive Integration Skills Treatment of Neurological System - Whole Body (ICD-10-PCS; principal; 2017-11-26)
DX: Z48.3 Aftercare following surgery for neoplasm (principal); C71.6 Malignant neoplasm of cerebellum; R41.841 Cognitive communication deficit; R26.89 Other abnormalities of gait and mobility; I26.99 Other pulmonary embolism without acute cor pulmonale; N28.1 Cyst of kidney, acquired; H53.2 Diplopia; F32.9 Major depressive disorder, single episode, unspecified; R21 Rash and other nonspecific skin eruption; I95.1 Orthostatic hypotension; G47.00 Insomnia, unspecified; K59.00 Constipation, unspecified; M06.9 Rheumatoid arthritis, unspecified; J45.909 Unspecified asthma, uncomplicated; Z87.820 Personal history of traumatic brain injury
CPT/HCPCS: 92507-GN; 92523-GN; 97110-GO; 97110-GP; 97112-GO; 97112-GP; 97116-GP; 97162-GP; 97166-GO; 97530-GO; 97530-GP; 97535-GO; 99366-GN; 99366-GO; A9585; G0515-GO; J1650; Q9967

== ENCOUNTER 2017-12-19 19:55 | Emergency (ER) | payer OTHER, MEDICARE ==
[2017-12-19 19:58] VITALS: BP 130/90
== END 2017-12-19 20:20 | disposition home or self-care (01) ==
DX: Z53.21 Procedure and treatment not carried out due to patient leaving prior to being seen by health care provider (principal)

== ENCOUNTER → 2018-04-09 | Outpatient (CLI) | payer OTHER, MEDICARE ==
[~2018-04-09] MED LIST: GADOBUTROL 10 ML VIAL IVP ONE
== END ==
LOC: FIMAGING 15:08
PROVIDERS: ATTEND Internal Medicine Hematology & Oncology
DX: Z48.3 Aftercare following surgery for neoplasm (principal); D43.2 Neoplasm of uncertain behavior of brain, unspecified
CPT/HCPCS: 70553; A9585; 82565-PO